=== PATIENT | male | born 1965 | race Caucasian/White ===

== ENCOUNTER 2016-09-15 11:50 | Day surgery (SDC) | payer BC, OTHER ==
[~2016-09-15] VITALS: Ht 188 cm; Wt 91.8 kg
[~2016-09-15 11:50] MED LIST: ASCO500T20 PO; ASP325TEC PO; ASP81TEC PO; CARV25TA PO; CARV6.25; CITA40TA19 PO; CLPD75T PO; CRESTOR; CRESTOR40 MG PO; LSNP20T PO; OMG1KC PO; OXYC-12 PO; PRILOSEC; PRV20T
[2016-09-15] MEDS ORDERED: ASPIRIN 81 MG CHEW (CHILDREN'S ASA) PO ONE (12:00)
--- NOTE | 2016-09-15 12:01 | ED Chest Pain ---
General Stated Complaint: CHEST PAIN Source: patient Exam Limitations: no limitations History of Present Illness Time seen by provider: 11:53 Initial Comments Here with report of increasing and stuttering chest pain that is anterior and nonradiating. Appears with activity and resolved after nitroglycerin. He's had multiple episodes over the last 2 days. Does have significant cardiac history and has had 3 stents placed. He states this is a very familiar feeling and is typically what happens with prior to requiring stent. Denies nausea or vomiting. Denies breathing problems. 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 NTG SL SALES PRODUCT SPECIALIST: Yes Associated Symptoms: No abdominal pain, No back pain, No nausea/vomiting, No shortness of breath Allergies and Home Medications Allergies Coded Allergies: NKANo Known Allergies (Verified Allergy, Unknown, 06/01/07) Home Medications Ascorbic Acid 500 Mg Tablet 500 MG PO DAILY (Reported) Aspirin 325 Mg Tabec #1 325 MG PO DAILY TAKE X 1 WEEK, THEN RESUME 81 MG DAILY Prescribed by: JOHNNY JOE on 11/27/13 1444 Aspirin 81 Mg Tabec #1 81 MG PO DAILY TAKE 325 MG X 1 WEEK, THEN RESUME 81 MG DAILY Prescribed by: JOHNNY JOE on 11/27/13 1446 Carvedilol 25 Mg Tablet 25 MG PO BID (Reported) Citalopram Hydrobromide 40 Mg Tablet 40 MG PO DAILY (Reported) Clopidogrel 75 Mg Tablet 75 MG PO DAILY (Reported) Lisinopril 20 Mg Tablet 20 MG PO DAILY (Reported) [place] 3 Polyunsat Fatty Acids 1,000 Mg Cap #1 3,000 MG PO DAILY Prescribed by: JOHNNY JOE on 11/27/13 1444 Rosuvastatin Calcium 40 Mg Tablet 40 MG PO DAILY (Reported) Review of Systems Constitutional: see HPINo chills, No fever EENTM: No Symptoms Reported Respiratory: No Symptoms Reported Cardiovascular: See HPI Chest PainDenies Edema, Denies Irregular Heart Rate, Denies Lightheadedness Gastrointestinal: No Symptoms ReportedDenies Nausea, Denies Vomiting Genitourinary: No Symptoms Reported Musculoskeletal: no symptoms reported Skin: no symptoms reported All Other Systems Reviewed Negative Unless Noted: Yes Past Rtdisob-Lxfdpk-Cwgtid Hx Patient Social History Alcohol Use: Denies Use Recreational Drug Use: No Smoking Status: Never a Smoker Surgeries HX Surgeries: Yes (HERNIA REP) Surgeries: Abdominal, Coronary Stent Respiratory Hx Respiratory Disorders: Yes Respiratory Disorders: Asthma Cardiovascular Hx Cardiac Disorders: Yes (x3 HEART STENTs) Cardiac Disorders: Coronary Artery Disease, Hypertension Neurological Hx Neurological Disorders: No Reproductive System Hx Reproductive Disorders: No Genitourinary Hx Genitourinary Disorders: Yes Genitourinary Disorders: Kidney Stones Gastrointestinal Hx Gastrointestinal Disorders: Yes Gastrointestinal Disorders: Abdominal Hernia Musculoskeletal Hx Musculoskeletal Disorders: Yes (RIGHT ROTATOR CUFF) Endocrine Hx Endocrine Disorders: No HEENT HX ENT Disorders: No Cancer Hx Cancer: No Psychosocial Hx Psychiatric Problems: Yes Behavioral Health Disorders: Depression Integumentary HX Skin/Integumentary Disorder: No Blood Transfusions Hx Blood Disorders: No Reviewed Nursing Assessment Reviewed/Agree w Nursing PMH: Yes Family Medical History Family Medial History: Alcoholism 03 FATHER Cancer 03 FATHER (lung ) Family history: Cardiovascular disease 03 FATHER (triple bypass) 03 MOTHER (multiple stents) Family history: Diabetes mellitus 03 MOTHER History of - disorder 03 MOTHER (macular degeneration) Physical Exam Vital Signs Vital Sign - Last 12Hours 09/15/16 11:52 Temp 98.4 Pulse 69 Resp 18 B/P 131/98 Pulse Ox 96 O2 Delivery Nasal Cannula O2 Flow Rate 2 Capillary Refill : General Appearance: No Apparent Distress WD/WN HEENT: PERRL/EOMI Pharynx Normal Neck: Non Tender Supple Respiratory: Lungs Clear Normal Breath Sounds Cardiovascular: Regular Rate, Rhythm No Murmur Gastrointestinal: Non Tender Soft Extremity: Non Tender No Calf Tenderness Neurologic/Psychiatric: Alert Oriented x3 Skin: Normal Color Warm/Dry Progress/Results/Core Measures Results/Orders Lab Results Laboratory Tests Test 09/15/16 12:01 Range/Units Activated Partial Thromboplast Time 25 24-35 SEC Alanine Aminotransferase (ALT/SGPT) 16 0-55 U/L Albumin 4.7 H 3.2-4.5 G/DL Alkaline Phosphatase 80 40-136 U/L Amylase Level 106 25-125 U/L Anion Gap 9 5-14 MMOL/L Aspartate Amino Transf (AST/SGOT) 17 5-34 U/L BUN/Creatinine Ratio 15 Basophils # (Auto) 0.1 0.0-0.1 10^3/uL Basophils (%) (Auto) 1 0-10 % Blood Urea Nitrogen 17 7-18 MG/DL Calcium Level 9.1 8.5-10.1 MG/DL Carbon Dioxide Level 25 21-32 MMOL/L Chloride Level 103 98-107 MMOL/L Creatinine 1.10 0.60-1.30 MG/DL D-Dimer 0.27 0.00-0.49 UG/ML Eosinophils # (Auto) 0.1 0.0-0.3 10^3/uL Eosinophils (%) (Auto) 2 0-10 % Estimat Glomerular Filtration Rate > 60 Glucose Level 106 H 70-105 MG/DL Hematocrit 46 40-54 % Hemoglobin 16.4 13.3-17.7 G/DL INR Comment 1.0 0.8-1.4 Lipase 214 H 8-78 U/L Lymphocytes # (Auto) 2.2 1.0-4.0 X 10^3 Lymphocytes (%) (Auto) 31 12-44 % Magnesium Level 2.1 1.8-2.4 MG/DL Mean Corpuscular Hemoglobin 33 25-34 PG Mean Corpuscular Hemoglobin Concent 36 32-36 G/DL Mean Corpuscular Volume 92 80-99 FL Mean Platelet Volume 9.2 7.4-10.4 FL Monocytes # (Auto) 0.9 0.0-1.0 X 10^3 Monocytes (%) (Auto) 12 0-12 % Myoglobin 226.2 H 10.0-92.0 NG/ML Neutrophils # (Auto) 4.0 1.8-7.8 X 10^3 Neutrophils (%) (Auto) 55 42-75 % Platelet Count 238 130-400 10^3/uL Potassium Level 4.2 3.6-5.0 MMOL/L Prothrombin Time 12.8 12.2-14.7 SEC Red Blood Count 4.99 4.35-5.85 10^6/uL Red Cell Distribution Width 12.0 10.0-14.5 % Sodium Level 137 135-145 MMOL/L Total Bilirubin 0.7 0.1-1.0 MG/DL Total Protein 7.1 6.4-8.2 G/DL Troponin I < 0.30 <0.30 NG/ML White Blood Count 7.3 4.3-11.0 10^3/uL My Orders Orders-JAIMIE WILSON MD Cbc With Automated Diff (09/15/16 11:59) Magnesium (09/15/16 11:59) Chest 1 View, Ap/Pa Only (09/15/16 11:59) Ekg Tracing (09/15/16 11:59) Cardiac Profile 1 (09/15/16 11:59) Comprehensive Metabolic Panel (09/15/16 11:59) Myoglobin Serum (09/15/16 11:59) Protime With Inr (09/15/16 11:59) Partial Thromboplastin Time (09/15/16 11:59) O2 (09/15/16 11:59) Monitor-Rhythm Ecg Trace Only (09/15/16 11:59) Lipid Panel (09/16/16 06:00) Aspirin Chewable Tablet (Baby Aspirin Ch (09/15/16 12:00) Saline Lock/Iv-Start (09/15/16 11:59) Lipase (09/15/16 11:59) Amylase (09/15/16 11:59) Fibrin Degradation Products (09/15/16 11:59) Medications Given in ED Current Medications Medications Dose Ordered Sig/Jorge Route Start Time Stop Time Status Last Admin Dose Admin Aspirin 324 mg ONCE ONCE PO 09/15/16 12:00 09/15/16 12:01 DC 09/15/16 12:14 324 MG Vital Signs/I&O Vital Sign - Last 12Hours 09/15/16 09/15/16 09/15/16 11:52 11:52 12:04 Temp 98.4 Pulse 69 Resp 18 B/P 131/98 Pulse Ox 96 96 O2 Delivery Nasal Cannula Room Air Room Air O2 Flow Rate 2 Progress Note : Progress Note Seen and evaluated. IV, labs, EKG and chest x-ray ordered. Patient pain free so no nitroglycerin. He has had aspirin already. Monitor patient. 1300: Labs , EKG and chest x-ray reviewed. Myoglobin slightly elevated as well as lipase slightly elevated. Admit for unstable angina due to stuttering and increasing symptoms. Case discussed with Dr. Bullock and she agrees to admission, inpatient status. Consult Dr. Jeny carl and case discussed with him. He agrees. Chest pain protocol initiated. Discussed with patient who agrees with plan. ECG Initial ECG Impression Date: Sep 15, 2016 Initial ECG Impression Time: 11:57 Initial ECG Rate: 61 Initial ECG Rhythm: Normal Sinus Comment Sinus rhythm with artifact. No evidence of ST elevation MA. Normal leftward axis. Similar to previous of 11/27/13. Interpreted by me. Diagnostic Imaging Diagonstic Imaging: Xray Plain Films/CT/US/NM/MRI: chest Comments VIA [facility], [facility]. [place], [place] NAME: [facility] REC#: [id number] PT STATUS: REG ER : 1965 PHYSICIAN: JAIMIE WILSON MD ADMIT DATE: 09/15/16/ER Draft Date of Exam:09/15/16 CHEST 1 VIEW, AP/PA ONLY CLINICAL INDICATION: Patient with chest pain skull base. EXAM: Portable chest x-ray upright view. COMPARISONS: Chest x-ray dated 11/26/2013. FINDINGS: Lungs/pleura: There is minimal atelectasis or scarring in the lateral left lung base. Likely nipple shadow overlying the lateral right lung base just above the level of the diaphragm. Lungs are clear. There is no pneumothorax. There is no pleural effusion. Mediastinum: Unremarkable. Pulmonary vasculature: Unremarkable. Heart: Unremarkable. Bones/extrathoracic soft tissue: Unremarkable. IMPRESSION: There is minimal left lung base atelectasis or scarring. Otherwise, there is no radiographic evidence of acute cardiopulmonary process. Dictated on workstation # [id number] Dict: 09/15/16 1255 Trans: 09/15/16 1303 [facility] [id number] Interpreted by: SAHLEY VEGAS MD Electronically signed by: Departure Communication Time/Spoke to Admitting Phy: 12:57 Time/Spoke to Consulting Physi: 13:01 Impression Impression: Primary Impression: Unstable angina Disposition: ADMITTED INPATIENT Condition: Stable Decision to Admit Reason: Admit from ER (General) Decision to Admit/Date: Sep 15, 2016 Time/Decision to Admit Time: 12:57 Departure-Patient Inst. Referrals: NO,LOCAL PHYSICIAN (PCP/Family) Primary Care Physician JAIMIE WILSON MD Sep 15, 2016 12:01
[2016-09-15 12:10] LABS: BASOPHILS # (AUTO) 0.1 10^3/uL (0.0-0.1); BASOPHILS % (AUTO) 1 % (0-10); EOSINOPHILS # (AUTO) 0.1 10^3/uL (0.0-0.3); EOSINOPHILS % (AUTO) 2 % (0-10); LYMPHOCYTES # (AUTO) 2.2 X 10^3 (1.0-4.0); LYMPHOCYTES % (AUTO) 31 % (12-44); MEAN CORPUSCULAR HEMOGLOBIN 33 PG (25-34); MEAN CORPUSCULAR HGB CONC 36 G/DL (32-36); MEAN CORPUSCULAR VOLUME 92 FL (80-99); MEAN PLATELET VOLUME 9.2 FL (7.4-10.4); MONOCYTES # (AUTO) 0.9 X 10^3 (0.0-1.0); MONOCYTES % (AUTO) 12 % (0-12); NEUTROPHILS % (AUTO) 55 % (42-75); PLATELET COUNT 238 10^3/uL (130-400); RED BLOOD COUNT 4.99 10^6/uL (4.35-5.85); WHITE BLOOD COUNT 7.3 10^3/uL (4.3-11.0)
[2016-09-15 12:20] LABS: PROTHROMBIN TIME PATIENT 12.8 SEC (12.2-14.7)
[2016-09-15 12:28] LABS: ALANINE AMINOTRANSFERASE 16 U/L (0-55); ALBUMIN 4.7 G/DL (3.2-4.5); AMYLASE 106 U/L (25-125); ANION GAP 9 MMOL/L (5-14); ASPARTATE AMINO TRANSFERASE 17 U/L (5-34); BILIRUBIN,TOTAL 0.7 MG/DL (0.1-1.0); BLOOD UREA NITROGEN 17 MG/DL (7-18); BUN/CREATININE RATIO 15; CALCIUM 9.1 MG/DL (8.5-10.1); CARBON DIOXIDE 25 MMOL/L (21-32); CHLORIDE 103 MMOL/L (98-107); GFR ESTIMATED > 60; GLUCOSE 106 MG/DL (70-105); LIPASE 214 U/L (8-78); MAGNESIUM 2.1 MG/DL (1.8-2.4); POTASSIUM 4.2 MMOL/L (3.6-5.0); SODIUM 137 MMOL/L (135-145); TOTAL PROTEIN 7.1 G/DL (6.4-8.2)
[2016-09-15 12:35] LABS: MYOGLOBIN SERUM 226.2 NG/ML (10.0-92.0)
--- NOTE | 2016-09-15 13:03 | Diagnostic Imaging Report ---
CLINICAL INDICATION: Patient with chest pain skull base. EXAM: Portable chest x-ray upright view. COMPARISONS: Chest x-ray dated 11/26/2013. FINDINGS: Lungs/pleura: There is minimal atelectasis or scarring in the lateral left lung base. Likely nipple shadow overlying the lateral right lung base just above the level of the diaphragm. Lungs are clear. There is no pneumothorax. There is no pleural effusion. Mediastinum: Unremarkable. Pulmonary vasculature: Unremarkable. Heart: Unremarkable. Bones/extrathoracic soft tissue: Unremarkable. IMPRESSION: There is minimal left lung base atelectasis or scarring. Otherwise, there is no radiographic evidence of acute cardiopulmonary process. Dictated by: Dictated on workstation # [id number]
[2016-09-15] MEDS ORDERED: NITR0.4T SL (13:42)
[2016-09-15] MEDS ORDERED: AMLO5TAB2 PO (13:42)
[2016-09-15] MEDS ORDERED: ASPI-983 PO (13:42)
[2016-09-15] MEDS ORDERED: LISI-552 PO (13:42)
[2016-09-15] MEDS ORDERED: ROSU40TA20 PO (13:42)
[2016-09-15] MEDS ORDERED: SULF-222 PO (13:42)
[2016-09-15] MEDS ORDERED: MELA1TAB15 PO (13:42)
[2016-09-15] MEDS ORDERED: MUPI22OI2 TOP (13:49)
[2016-09-15] MEDS ORDERED: NS IV 1000 ML 1,000 ML ONE (14:02)
--- NOTE | 2016-09-15 14:21 | Consultation-Cardiology ---
HPI-Cardiology Cardiology Consultation Date of Consultation 09/15/16 Date of Admission Indication: chest pain HPI 51-year-old gentleman with history of coronary artery disease, multiple interventions in the past, borderline lesion in the circumflex artery by cardiac catheterization 2013, had an abnormal stress test in August 2015. Was doing well until yesterday when he started having recurrent chest pain described as dull achiness in the upper epigastric lower retrosternal area not radiating associated with some shortness of breath and feeling fluttering sensation in the chest. Took nitroglycerin with improvement, had another episode yesterday at noon and in the evening then this morning, came into the emergency room, currently laying down in bed, denied any active pain. EKG did not show any acute changes Home Medications & Allergies Allergies: Coded Allergies: NKANo Known Allergies (Verified Allergy, Unknown, 06/01/07) Home Medication List Reviewed: Yes LSE-Radrjk-Qybikf Hx Patient Social History Marital Status: Alcohol Use: Denies Use Recreational Drug Use: No Smoking Status: Never a Smoker Recent Foreign Travel: No Recent Infectious Disease Expo: No Recent Hopitalizations: No Physical Abuse Screen: No Sexual Abuse: No Immunizations Up To Date Tetanus Booster (TDap): Unknown Past Medical History past medical history as discussed below Family Medical History Family History: 03 FATHER Alcoholism Cancer (lung ) Family history: Cardiovascular disease (triple bypass) 03 MOTHER Family history: Cardiovascular disease (multiple stents) Family history: Diabetes mellitus History of - disorder (macular degeneration) Constitutional: no symptoms reported see HPI EENTM: no symptoms reported see HPI Respiratory: see HPINo cough, dyspnea on exertionNo hemoptysis, No orthopnea , No phlegm, short of breathNo stridor, No wheezing, No other Cardiovascular: see HPI chest painNo edema, No Hx of Intervention, No palpitations, No syncope, No vascular heart diseas, No other Gastrointestinal: no symptoms reported see HPI Genitourinary: no symptoms reported see HPI Musculoskeletal: no symptoms reported see HPI Skin: no symptoms reported see HPI Psychiatric/Neurological: No Symptoms Reported See HPI Reviewed Test Results Reviewed Test Results Lab Laboratory Tests Test 09/15/16 12:01 Range/Units Activated Partial Thromboplast Time 25 24-35 SEC Alanine Aminotransferase (ALT/SGPT) 16 0-55 U/L Albumin 4.7 H 3.2-4.5 G/DL Alkaline Phosphatase 80 40-136 U/L Amylase Level 106 25-125 U/L Anion Gap 9 5-14 MMOL/L Aspartate Amino Transf (AST/SGOT) 17 5-34 U/L BUN/Creatinine Ratio 15 Basophils # (Auto) 0.1 0.0-0.1 10^3/uL Basophils (%) (Auto) 1 0-10 % Blood Urea Nitrogen 17 7-18 MG/DL Calcium Level 9.1 8.5-10.1 MG/DL Carbon Dioxide Level 25 21-32 MMOL/L Chloride Level 103 98-107 MMOL/L Creatinine 1.10 0.60-1.30 MG/DL D-Dimer 0.27 0.00-0.49 UG/ML Eosinophils # (Auto) 0.1 0.0-0.3 10^3/uL Eosinophils (%) (Auto) 2 0-10 % Estimat Glomerular Filtration Rate > 60 Glucose Level 106 H 70-105 MG/DL Hematocrit 46 40-54 % Hemoglobin 16.4 13.3-17.7 G/DL INR Comment 1.0 0.8-1.4 Lipase 214 H 8-78 U/L Lymphocytes # (Auto) 2.2 1.0-4.0 X 10^3 Lymphocytes (%) (Auto) 31 12-44 % Magnesium Level 2.1 1.8-2.4 MG/DL Mean Corpuscular Hemoglobin 33 25-34 PG Mean Corpuscular Hemoglobin Concent 36 32-36 G/DL Mean Corpuscular Volume 92 80-99 FL Mean Platelet Volume 9.2 7.4-10.4 FL Monocytes # (Auto) 0.9 0.0-1.0 X 10^3 Monocytes (%) (Auto) 12 0-12 % Myoglobin 226.2 H 10.0-92.0 NG/ML Neutrophils # (Auto) 4.0 1.8-7.8 X 10^3 Neutrophils (%) (Auto) 55 42-75 % Platelet Count 238 130-400 10^3/uL Potassium Level 4.2 3.6-5.0 MMOL/L Prothrombin Time 12.8 12.2-14.7 SEC Red Blood Count 4.99 4.35-5.85 10^6/uL Red Cell Distribution Width 12.0 10.0-14.5 % Sodium Level 137 135-145 MMOL/L Total Bilirubin 0.7 0.1-1.0 MG/DL Total Protein 7.1 6.4-8.2 G/DL Troponin I < 0.30 <0.30 NG/ML White Blood Count 7.3 4.3-11.0 10^3/uL Physical Exam Vital Signs Vital Sign - Last 12Hours 09/15/16 11:52 Temp 98.4 Pulse 69 Resp 18 B/P 131/98 Pulse Ox 96 O2 Delivery Nasal Cannula O2 Flow Rate 2 Capillary Refill : Less Than 3 Seconds General Appearance: No Apparent Distress WD/WN Eyes: Bilateral Eye EOMI, Bilateral Eye Normal Inspection, Bilateral Eye PERRL HEENT: PERRL/EOMI TMs Normal Normal ENT Inspection Pharynx Normal Neck: Full Range of Motion Normal Inspection Non Tender Supple Carotid Bruit Respiratory: Chest Non Tender Lungs Clear Normal Breath Sounds No Accessory Muscle Use No Respiratory Distress Cardiovascular: Regular Rate, Rhythm No Edema No Gallop No JVD No Murmur Normal Peripheral Pulses Gastrointestinal: Normal Bowel Sounds No Organomegaly No Pulsatile Mass Non Tender Soft Back: Normal Inspection No CVA Tenderness No Vertebral Tenderness Extremity: Normal Capillary Refill Normal Inspection Normal Range of Motion Non Tender No Calf Tenderness No Pedal Edema Neurologic/Psychiatric: Alert Oriented x3 No Motor/Sensory Deficits Normal Mood/Affect Skin: Normal Color Warm/Dry Lymphatic: No Adenopathy A/P-Cardiology Admission Diagnosis Chest pain Coronary artery disease Hypertension Hyperlipidemia Assessment/Plan Chest pain resembling angina, acute onset. Responsive to nitroglycerin, no acute EKG changes, cardiac enzymes are normal. I'll continue monitoring, patient will be admitted with chest pain protocol, possible cardiac catheterization. Monitor EKG and cardiac enzymes. Coronary artery disease, history of PTCA and stent done in 2005 using 4.020 mm Liberte stent to the right coronary artery. Was hospitalized in November 2013 with unstable angina. Underwent cardiac catheterization which showed 80 percent midright coronary artery stenosis. Underwent successful deployment of 2 overlapping stents 4.012 mm Promus element and 4.08 mm Promus element in the midright coronary artery overlapping with the old stent with excellent results, no residual stenosis. The proximal portion of the right coronary artery has 40 percent stenosis. The circumflex artery has 50-60 percent proximal stenosis, FFR evaluation showed insignificant stenosis. 95 percent stenosis at the first diagonal artery that is fairly small artery not amendable to intervention, stress test was done in August 2015 showing excellent exercise tolerance, 13 minutes 30 seconds on Oscar protocol, hypertensive response, diaphragmatic attenuation with subtle decrease uptake at the inferior wall, echocardiogram showed moderate LVH with ejection fraction 60 percent. reporting worsening chest pain recently. Planning to proceed with cardiac catheterization. Hypertension, I will restart home medication and monitor blood pressure Hyperlipidemia, monitor lipids. Restart Crestor. History of noncompliance with medications, Patient expressed that he has been compliant with his medications. Strong family history of heart disease Mild depression, currently under control. Continue to monitor Clinical Quality Measures AMI/AHF: ASA po Prior to arrival: Yes JORDAN NAGY MD Sep 15, 2016 14:20
[2016-09-15 14:30] VITALS: BP 126/72
[2016-09-15] MEDS ORDERED: morphine INJ 4 MG/ML 1 ML (VIAL/SYRINGE) IV PRN (14:45)
[2016-09-15] MEDS ORDERED: NITROGLYCERIN SUBLINGUAL 0.4 MG TAB (NITROSTAT) SL PRN (14:45)
[2016-09-15] MEDS ORDERED: CATHETER FLUSH 10 ML SYR IV PRN (14:45)
[2016-09-15] MEDS ORDERED: FLU TRIvalent (5 YOA+) 2016-17 (AFLURIA) 0.5 ML IM ONE (15:30)
[2016-09-15] MEDS: NS IV 1000 ML 1,000 ML IV SCH (15:49)
[2016-09-15] MEDS ORDERED: NON-FORMULARY MEDICATION 1 EA EA (Melatonin/Pyridoxine (Melatonin 5 mg Tablet) 5 MG) PO PRN (16:15)
--- NOTE | 2016-09-15 16:53 | History & Physical-Hospitalist ---
HPI History of Present Illness: HPI/Chief Complaint this is a 51-year-old white male with a history of coronary artery disease multiple stents and interventions. Patient presents with a three-day history of increased chest pain relieved with nitroglycerin. This pain has occurred at rest and has been associated with diaphoresis and shortness of breath. Patient has currently been pain-free since admission. Dr. Moreno seen the patient in cardiac catheter is planned for the morning. Source: patient Exam Limitations: no limitations Date Seen 09/15/16 Attending Physician Eunice Santa MD PCP No,Local Physician Referring Physician Date of Admission Sep 15, 2016 at 13:21 Home Medications & Allergies Home Medications Reviewed patient Home Medication Reconciliation Form Allergies Coded Allergies: NKANo Known Allergies (Verified Allergy, Unknown, 06/01/07) Past Cziolgf-Qkpvzh-Taavgn Hx Patient Social History Marrital Status: Employed/Student: employed Alcohol Use: Past History Recreational Drug Use: Yes Drug of Choice: marijuana Smoking Status: Former Smoker Type Used: Cigarettes Physical Abuse Screen: No Sexual Abuse: No Recent Foreign Travel: No Contact w/other who traveled: No Recent Hopitalizations: No Recent Infectious Disease Expo: No Immunizations Up To Date Tetanus Booster (TDap): Unknown Seasonal Allergies Seasonal Allergies: No Surgeries HX Surgeries: Yes (HERNIA REP, macrodiscetomy, cardiac stents x 3) Surgeries: Abdominal, Coronary Stent, Orthopedic Respiratory Hx Respiratory Disorders: Yes (asthma) Cardiovascular Hx Cardiovascular Disorders: Yes (x3 HEART STENTs) Cardiac Disorders: Coronary Artery Disease, Hypertension Neurological Hx Neurological Disorders: No Reproductive System Hx Reproductive Disorders: No Genitourinary Hx Genitourinary Disorders: Yes Genitourinary Disorders: Kidney Stones Gastrointestinal Hx Gastrointestinal Disorders: Yes Gastrointestinal Disorders: Abdominal Hernia Musculoskeletal Hx Musculoskeletal Disorders: Yes (RIGHT ROTATOR CUFF) Endocrine Hx Endocrine Disorders: No HEENT HX ENT Disorders: No Cancer Hx Cancer: No Psychosocial Hx Psychiatric Problems: Yes Behavioral Health Disorders: Depression Integumentary HX Skin/Integumentary Disorder: No Blood Transfusions Hx Blood Disorders: No Reviewed Nursing Assessment Reviewed/Agree w Nursing PMH: Yes Family Medical History Family Hx: Alcoholism 03 FATHER Cancer 03 FATHER (lung ) Family history: Cardiovascular disease 03 FATHER (triple bypass) 03 MOTHER (multiple stents) Family history: Diabetes mellitus 03 MOTHER History of - disorder 03 MOTHER (macular degeneration) Review of Systems Constitutional: no symptoms reported EENTM: no symptoms reported Respiratory: no symptoms reported Cardiovascular: see HPI chest pain Gastrointestinal: no symptoms reported Genitourinary: no symptoms reported Musculoskeletal: no symptoms reported Skin: no symptoms reported Psychiatric/Neurological: No Symptoms Reported Physical Exam Physical Exam Vital Signs Vital Sign - Last 12Hours 09/15/16 11:52 Temp 98.4 Pulse 69 Resp 18 B/P 131/98 Pulse Ox 96 O2 Delivery Nasal Cannula O2 Flow Rate 2 Capillary Refill : Less Than 3 Seconds General Appearance: No Apparent Distress WD/WN HEENT: Normal ENT Inspection Neck: Supple Respiratory: Lungs Clear Normal Breath Sounds No Accessory Muscle Use No Respiratory Distress Cardiovascular: Regular Rate, Rhythm No Gallop No Murmur Gastrointestinal: Non Tender Soft Back: No CVA Tenderness Extremity: Non Tender No Calf Tenderness Neurologic/Psychiatric: Alert Oriented x3 No Motor/Sensory Deficits Normal Mood/Affect Skin: Normal Color Warm/Dry Lymphatic: No Adenopathy Results Results/Procedures Lab Laboratory Tests 09/15/16 12:01 Assessment/Plan Admission Diagnosis 1. unstable angina 2. Hypertension 3. Elevated lipase 4. coronary artery disease with a history of stents and interventions in the past 5. Family history of heart disease Plan to continue his home medications with a cardiac catheter in the morning Clinical Quality Measures AMI/AHF: ASA po Prior to arrival: Yes DVT/VTE Risk/Contraindication: Risk Factor Score Per Nursin RFS Level Per Nursing on Admit: 1=Low/No VTE PPX EUNICE SANTA MD Sep 15, 2016 16:53
[2016-09-15] MEDS: TRIM/SULFAMETH 160/800 (SEPTRA DS) TAB PO SCH (17:00)
[2016-09-15] MEDS: ENOXAPARIN 100 MG/1 ML (LOVENOX) SYR SC SCH (17:01)
[2016-09-15] MEDS: MELATONIN 3 MG TABLET PO PRN (19:47)
[2016-09-15] MEDS: CARVEDILOL 12.5 MG (COREG) TABLET PO SCH (19:47)
[2016-09-15 19:48] VITALS: BP 132/81
[2016-09-15] MEDS ORDERED: NON-FORMULARY MEDICATION 1 EA EA (Carvedilol 25 MG) PO SCH (21:00)
[2016-09-15 23:41] VITALS: BP 142/72
[2016-09-16] VITALS (10 sets, daily range): BP systolic 108–136; BP diastolic 67–90
[2016-09-16 03:32] LABS: BASOPHILS # (AUTO) 0.1 10^3/uL (0.0-0.1); BASOPHILS % (AUTO) 1 % (0-10); EOSINOPHILS # (AUTO) 0.1 10^3/uL (0.0-0.3); EOSINOPHILS % (AUTO) 2 % (0-10); LYMPHOCYTES # (AUTO) 2.9 X 10^3 (1.0-4.0); LYMPHOCYTES % (AUTO) 50 % (12-44); MEAN CORPUSCULAR HEMOGLOBIN 32 PG (25-34); MEAN CORPUSCULAR HGB CONC 34 G/DL (32-36); MEAN CORPUSCULAR VOLUME 93 FL (80-99); MEAN PLATELET VOLUME 9.8 FL (7.4-10.4); MONOCYTES # (AUTO) 0.7 X 10^3 (0.0-1.0); MONOCYTES % (AUTO) 12 % (0-12); NEUTROPHILS % (AUTO) 35 % (42-75); PLATELET COUNT 204 10^3/uL (130-400); RED BLOOD COUNT 4.93 10^6/uL (4.35-5.85); RED CELL DISTRIBUTION WIDTH 12.1 % (10.0-14.5); WHITE BLOOD COUNT 5.8 10^3/uL (4.3-11.0)
[2016-09-16 03:50] LABS: ALANINE AMINOTRANSFERASE 18 U/L (0-55); ALBUMIN 4.3 G/DL (3.2-4.5); ANION GAP 12 MMOL/L (5-14); ASPARTATE AMINO TRANSFERASE 21 U/L (5-34); BILIRUBIN,TOTAL 0.6 MG/DL (0.1-1.0); BLOOD UREA NITROGEN 15 MG/DL (7-18); BUN/CREATININE RATIO 16; CALCIUM 9.1 MG/DL (8.5-10.1); CARBON DIOXIDE 23 MMOL/L (21-32); CHLORIDE 104 MMOL/L (98-107); CHOLESTEROL 159 MG/DL (< 200); CREATININE SERUM 0.94 MG/DL (0.60-1.30); DIRECT LDL 111 MG/DL (1-129); GFR ESTIMATED > 60; GLUCOSE 97 MG/DL (70-105); LIPASE 54 U/L (8-78); POTASSIUM 4.3 MMOL/L (3.6-5.0); SODIUM 139 MMOL/L (135-145); TOTAL PROTEIN 6.5 G/DL (6.4-8.2); TRIGLYCERIDES 155 MG/DL (<150); VLDL CHOLESTEROL 31 MG/DL (5-40)
[2016-09-16] MEDS: NS IV 1000 ML 1,000 ML IV SCH ×3 (03:56→19:57)
[2016-09-16] MEDS: ENOXAPARIN 100 MG/1 ML (LOVENOX) SYR SC SCH (04:30)
[2016-09-16] MEDS: TRIM/SULFAMETH 160/800 (SEPTRA DS) TAB PO SCH ×2 (07:00→16:22)
[2016-09-16] MEDS: CARVEDILOL 12.5 MG (COREG) TABLET PO SCH ×2 (08:10→20:12)
[2016-09-16] MEDS: lisINopril 20 MG (ZESTRIL) TAB PO SCH (08:11)
[2016-09-16] MEDS: amLODIPine 5 MG (NORVASC) TAB PO SCH (08:11)
[2016-09-16] MEDS ORDERED: HEParin (CATH LAB) 2,000 ML IV ONE (08:31)
[2016-09-16] MEDS ORDERED: NS IV 1000 ML 0 ML ONE (08:31)
[2016-09-16] MEDS ORDERED: LIDOCAINE 1% INJ 20 ML (XYLOCAINE) VIAL ONE (08:31)
[2016-09-16] MEDS ORDERED: fentaNYL INJECTION 100 MCG/2 ML AMP ONE (08:33)
[2016-09-16] MEDS ORDERED: MIDAZOLAM 5 MG/5 ML (VERSED) VIAL ONE (08:33)
--- NOTE | 2016-09-16 08:47 | Cardiology Progress Note ---
Subjective Subjective/Events-last exam patient had another 2 episodes of chest pain 1 at 3 a.m. and one early this morning, the Moni nature in the retrosternal area associated with some shortness of breath. Similar to his chest pain that brought him to the hospital , currently chest pain-free Review of Systems General: No Chills, No Night Sweats, No Fatigue, No Malaise, No Appetite, No Other HEENT: No Head Aches, No Visual Changes, No Eye Pain, No Ear Pain, No Dysphasia , No Sinus Congestion, No Post Nasal Drip, No Sore Throat, No Other Pulmonary: DyspneaNo Cough, No Pleuritic Chest Pain, No Other Cardiovascular: : Chest PainNo: Edema, Lt Headedness, Orthopnea, Other, Palpitations, Paroxysmal Noc. Dyspnea Objective-Cardiology Exam Last Set of Vital Signs Vital Signs 09/15/16 09/16/16 14:10 08:05 Temp 97.4 Pulse 67 Resp 16 B/P 123/87 Pulse Ox 96 O2 Delivery Room Air O2 Flow Rate 2 Capillary Refill : Less Than 3 Seconds I&O Bad tableGeneral: Alert, Oriented X3, Cooperative HEENT: Atraumatic, PERRLA Neck: Supple, No JVD, No Thyromegaly Lungs: Clear to Auscultation, Normal Air Movement Heart: Regular Rate, Normal S1, Normal S2, No Murmurs Abdomen: Normal Bowel Sounds, Soft, No Tenderness, No Hepatosplenomegaly, No Masses Extremities: No Clubbing, No Cyanosis, No Edema, Normal Pulses, No Tenderness/ Swelling Skin: No Rashes, No Breakdown, No Significant Lesion Neuro: Normal Gait, Normal Speech, Strength at 5/5 X4 Ext, Normal Tone, Sensation Intact Psych/Mental Status: Mental Status NL, Mood NL Results Lab Laboratory Tests 09/15/16 12:01 09/16/16 02:40 A/P-Cardiology Admission Diagnosis Chest pain Coronary artery disease Hypertension Hyperlipidemia Assessment/Plan Chest pain resembling angina, acute onset. Responsive to nitroglycerin, still having recurrent pain, I am planning to proceed with cardiac catheterization today. Coronary artery disease, history of PTCA and stent done in 2005 using 4.020 mm Liberte stent to the right coronary artery. Was hospitalized in November 2013 with unstable angina. Underwent cardiac catheterization which showed 80 percent midright coronary artery stenosis. Underwent successful deployment of 2 overlapping stents 4.012 mm Promus element and 4.08 mm Promus element in the midright coronary artery overlapping with the old stent with excellent results, no residual stenosis. The proximal portion of the right coronary artery has 40 percent stenosis. The circumflex artery has 50-60 percent proximal stenosis, FFR evaluation showed insignificant stenosis. 95 percent stenosis at the first diagonal artery that is fairly small artery not amendable to intervention, stress test was done in August 2015 showing excellent exercise tolerance, 13 minutes 30 seconds on Oscar protocol, hypertensive response, diaphragmatic attenuation with subtle decrease uptake at the inferior wall, echocardiogram showed moderate LVH with ejection fraction 60 percent. reporting worsening chest pain recently. Planning to proceed with cardiac catheterization. Hypertension, monitor blood pressure Hyperlipidemia, still having elevated LDL, continue Crestor, add Zetia. History of noncompliance with medications, Patient expressed that he has been compliant with his medications. Strong family history of heart disease Mild depression, currently under control. Continue to monitor Clinical Quality Measures AMI/AHF: ASA po Prior to arrival: Yes DVT/VTE Risk/Contraindication: Risk Factor Score Per Nursin RFS Level Per Nursing on Admit: 1=Low/No VTE PPX JORDAN NAGY MD Sep 16, 2016 08:47
--- NOTE | 2016-09-16 08:49 | Cardiac Procedure Note-CS/ASA ---
Pre-Procedure Note Pre-Op Procedure Note H&P Reviewed The H&P was reviewed, patient examined and no changes noted. Date H&P Reviewed: Sep 16, 2016 Time H&P Reviewed: 08:48 Conscious Sedation Pre-Proced Time Reviewed: 08:48 ASA Class: 3 Airway Mallampati Classification: (nenana appropriate class) I. II. III, IV Lungs Heart ASA score ASA 1: a normal healthy patient ASA 2: a patient with a mild systemic disease (mid diabetes, controlled hypertension, obesity x ASA 3: a patient with a severe systemic disease that limits activity (angina , COPD, prior Myocardial infarction) ASA 4: a patient with an incapacitating disease that is a constant threat to life (CHF, renal failure) ASA 5: a moribund patient not expected to survive 24 hrs. (ruptured aneurysm) ASA 6: a declared brain patient whose organs are being harvested. For emergent operations, add the letter E after the classification Grade 3 Sedation Plan: Analgesia, Amnesia, Plan communicated to team members, Discussed options with patient/fam, Discussed risks with patient/fam Note The patient is an appropriate candidate to undergo the planned procedure, sedation, and anesthesia. The patient immediately re-assessed prior to indication. JORDAN NAGY MD Sep 16, 2016 08:49
[2016-09-16] MEDS ORDERED: ASPIRIN E.C. 81 MG (ECOTRIN) TAB PO SCH (09:00)
[2016-09-16] MEDS ORDERED: NON-FORMULARY MEDICATION 1 EA EA (Citalopram Hydrobromide (Celexa) 40 MG) PO SCH (09:00)
[2016-09-16] MEDS ORDERED: CLOPIDOGREL 75 MG (PLAVIX) TABLET PO SCH (09:00)
[2016-09-16] MEDS ORDERED: ASPIRIN E.C. 325 MG (ECOTRIN) TABLET PO SCH (09:00)
[2016-09-16] MEDS ORDERED: EPTIFIBATIDE BOLUS 20 ML IV ONE (09:30)
[2016-09-16] MEDS ORDERED: NITROGLYCERIN DRIP 25 MG/D5W 250 ML IV ONE (09:30)
[2016-09-16] MEDS ORDERED: HEParin 1000 UNIT/ML (10ML VIAL) FOR BOLUS ONE (09:30)
[2016-09-16] MEDS ORDERED: ASPIRIN 325 MG (5 GR) TABLET ONE (09:53)
[2016-09-16] MEDS ORDERED: CLOPIDOGREL 300 MG (PLAVIX) TABLET PO ONE (09:53)
[2016-09-16] MEDS ORDERED: PATIENT MAY USE OWN MEDS, ALL PO SCH (10:00)
--- NOTE | 2016-09-16 10:14 | Progress Note-Hospitalist ---
Subjective HPI/CC On Admission this is a 51-year-old white male with a history of coronary artery disease multiple stents and interventions. Patient presents with a three-day history of increased chest pain relieved with nitroglycerin. This pain has occurred at rest and has been associated with diaphoresis and shortness of breath. Patient has currently been pain-free since admission. Dr. Moreno seen the patient in cardiac catheter is planned for the morning. Date Seen 09/16/16 Subjective/Events-last exam patient has had chest discomfort off and on throughout the night. He is getting ready for heart catheter this morning. He notes his mother has had 17 stents. Not take any nitroglycerin overnight. Troponin is remained negative. Review of Systems Cardiovascular: : Chest Pain Objective Exam Vital Signs Vital Sign - Last 12Hours 09/15/16 11:52 Temp 98.4 Pulse 69 Resp 18 B/P 131/98 Pulse Ox 96 O2 Delivery Nasal Cannula O2 Flow Rate 2 Capillary Refill : Less Than 3 Seconds General Appearance: No Apparent Distress WD/WN HEENT: Normal ENT Inspection Other (or dentition) Neck: Normal Inspection Non Tender Respiratory: Normal Breath Sounds No Accessory Muscle Use No Respiratory Distress Crackles Cardiovascular: Regular Rate, Rhythm No Gallop No Murmur Gastrointestinal: Non Tender Soft Extremity: Normal Range of Motion Non Tender No Calf Tenderness Neurologic/Psychiatric: Alert Oriented x3 No Motor/Sensory Deficits Normal Mood/Affect Skin: Normal Color Warm/Dry Results/Procedures Lab Laboratory Tests 09/15/16 12:01 09/16/16 02:40 Assessment/Plan Assessment and Plan Assess & Plan/Chief Complaint 1. unstable angina-heart catheter today, discharge per Dr. Fermin 2. coronary artery disease with previous stents 3. Suboptimal LDL-and sitter more aggressive statin replacement 4.Elevated lipase of uncertain etiology- back to normal GEMMA SANTA MD Sep 16, 2016 10:14
[2016-09-16] MEDS: OMEGA 3 (FISH OIL) 1000 MG CAP PO SCH ×2 (13:14→16:22)
[2016-09-16] MEDS: MELATONIN 3 MG TABLET PO PRN (20:12)
[2016-09-16] MEDS ORDERED: ATORVASTATIN 80 MG (LIPITOR) TABLET PO SCH (21:00)
[2016-09-17 03:15] VITALS: BP 117/85
[2016-09-17 04:03] LABS: MEAN PLATELET VOLUME 9.7 FL (7.4-10.4); RED BLOOD COUNT 5.04 10^6/uL (4.35-5.85); RED CELL DISTRIBUTION WIDTH 11.9 % (10.0-14.5); WHITE BLOOD COUNT 7.9 10^3/uL (4.3-11.0)
[2016-09-17 04:11] LABS: ANION GAP 11 MMOL/L (5-14); BLOOD UREA NITROGEN 14 MG/DL (7-18); BUN/CREATININE RATIO 16; CALCIUM 9.1 MG/DL (8.5-10.1); CARBON DIOXIDE 20 MMOL/L (21-32); CHLORIDE 105 MMOL/L (98-107); CREATININE SERUM 0.89 MG/DL (0.60-1.30); GFR ESTIMATED > 60; GLUCOSE 111 MG/DL (70-105); POTASSIUM 4.2 MMOL/L (3.6-5.0); SODIUM 136 MMOL/L (135-145)
[2016-09-17] MEDS: NS IV 1000 ML 1,000 ML IV SCH (05:31)
[2016-09-17 08:30] VITALS: BP 142/100
[2016-09-17] MEDS: lisINopril 20 MG (ZESTRIL) TAB PO SCH (08:48)
[2016-09-17] MEDS: CARVEDILOL 12.5 MG (COREG) TABLET PO SCH (08:48)
[2016-09-17] MEDS: OMEGA 3 (FISH OIL) 1000 MG CAP PO SCH (08:48)
[2016-09-17] MEDS: amLODIPine 5 MG (NORVASC) TAB PO SCH (08:48)
[2016-09-17] MEDS: TRIM/SULFAMETH 160/800 (SEPTRA DS) TAB PO SCH (08:48)
[2016-09-17] MEDS ORDERED: OMG1KC PO (08:58)
--- NOTE | 2016-09-17 08:59 | Discharge Inst-Post CATH ---
Discharge Inst-CATH Post Cardiac Cath D/C Inst Follow Up/Plan Appointment with Dr Fermin's office in 2-4 weeks CARDIAC CATH DISCHARGE INSTRUCTIONS *Hold Metformin for 48 hours post heart cath. ACTIVITY * Go Home directly and rest. * Limit activity of the leg (or wrist if it was used) for 7 days including aerobics, swimming, jogging, bicycling, etc. * Restrict stair-climbing for 7 days if possible, if not, climb up with your non -cath leg, then bring together on the same step. * Avoid lifting, pushing, pulling or excessive movement of the affected extremity for 7 days. * Customary sexual activity may be resumed after 2 days-use caution not to use a position that strains or causes pain to the affected extremity. * No driving for 24 hours. * NO SMOKING. * Avoid straining for bowel movements for 7 days. * Gentle walking on level ground is allowed. * Returning to work will depend on the type of procedure and the results. Your doctor will discuss this with you. CALL YOUR DOCTOR FOR ANY OF THE FOLLOWING: *If bleeding from the puncture site occurs- Apply gentle pressure to site with clean cloth and call your doctor or EMS. * If a knot or lump forms under the skin, increases in size, or causes pain. * If bruising appears to be worsening or moving further down your leg instead of disappearing. * Temperature above 101 F. CARE OF YOUR GROIN INCISION; * Bruising or purple discoloration of the skin near the puncture site is common. * You may shower only, no bathtub bathing for 5 days. Be careful to avoid slipping as your leg may feel stiff. * If a closure device was used on your femoral artery, please see the attached guide regarding care of the device and your leg. * REMOVE the dressing from your groin the next day after your procedure in the shower. CARE OF YOUR WRIST INCISION; * Bruising or purple discoloration of the skin near the puncture site is common. * You may shower. * DO NOT submerge wrist. * Remove dressing in 24 hours. JORDAN FERMIN MD Sep 17, 2016 08:59
[2016-09-17] MEDS ORDERED: CLOPIDOGREL 75 MG (PLAVIX) TABLET PO SCH (09:00)
[2016-09-17] MEDS ORDERED: ASPIRIN E.C. 81 MG (ECOTRIN) TAB PO SCH (09:00)
--- NOTE | 2016-09-17 09:03 | Cardiology Progress Note ---
Subjective Subjective/Events-last exam patient is feeling well, groin is healing well, had some numbness in his right leg yesterday after the cardiac catheter improved at this time, feeling better. Review of Systems General: No Chills, No Night Sweats, No Fatigue, No Malaise, No Appetite, No Other HEENT: No Head Aches, No Visual Changes, No Eye Pain, No Ear Pain, No Dysphasia , No Sinus Congestion, No Post Nasal Drip, No Sore Throat, No Other Pulmonary: No Dyspnea, No Cough, No Pleuritic Chest Pain, No Other Cardiovascular: No: Chest Pain, Edema, Lt Headedness, Orthopnea, Other, Palpitations, Paroxysmal Noc. Dyspnea Gastrointestinal: No: Abdominal Pain, Constipation, Diarrhea, Hematochezia, Melena, Nausea, Other, Vomiting Objective-Cardiology Exam Last Set of Vital Signs Vital Signs 09/15/16 09/17/16 14:10 08:30 Temp 99.9 Pulse 68 Resp 18 B/P 142/100 Pulse Ox 95 O2 Delivery Room Air O2 Flow Rate 2 Capillary Refill : Less Than 3 Seconds I&O Intake and Output 09/17/16 00:00 Intake Total 650 ml Output Total 902 ml Balance -252 ml Intake Oral 650 ml Output Urine Total 902 ml # Bowel Movements 1 General: Alert, Oriented X3, Cooperative HEENT: Atraumatic, PERRLA Neck: Supple, No JVD, No Thyromegaly Lungs: Clear to Auscultation, Normal Air Movement Heart: Regular Rate, Normal S1, Normal S2, No Murmurs Abdomen: Normal Bowel Sounds, Soft, No Tenderness, No Hepatosplenomegaly, No Masses Extremities: No Clubbing, No Cyanosis, No Edema, Normal Pulses, No Tenderness/ Swelling Skin: No Rashes, No Breakdown, No Significant Lesion Neuro: Normal Gait, Normal Speech, Strength at 5/5 X4 Ext, Normal Tone, Sensation Intact Psych/Mental Status: Mental Status NL, Mood NL Results Lab Laboratory Tests 09/17/16 03:10 A/P-Cardiology Admission Diagnosis Chest pain Coronary artery disease Hypertension Hyperlipidemia Assessment/Plan Unstable angina, status post cardiac catheterization with stent, doing well. Coronary artery disease, history of PTCA and stent done in 2005 using 4.020 mm Liberte stent to the right coronary artery. Was hospitalized in November 2013 with unstable angina. Underwent cardiac catheterization which showed 80 percent midright coronary artery stenosis. Underwent successful deployment of 2 overlapping stents 4.012 mm Promus element and 4.08 mm Promus element in the midright coronary artery overlapping with the old stent with excellent results, no residual stenosis. The proximal portion of the right coronary artery has 40 percent stenosis. The circumflex artery has 50-60 percent proximal stenosis, FFR evaluation showed insignificant stenosis. 95 percent stenosis at the first diagonal artery that is fairly small artery not amendable to intervention, repeat cardiac catheterization showed patent stents in the midright coronary artery, ulcerated plaque in the proximal right coronary artery with 90 percent stenosis, underwent stent deployment using Xience stent 4.018 mm with excellent results. No residual stenosis. Still have the 50 percent lesion in the mid circumflex artery, severe stenosis of the ostial diagonal artery that is fairly small artery treated medically. Hypertension, continue current medications Hyperlipidemia, still having elevated LDL, continue current medication, and fish oil History of noncompliance with medications, Patient expressed that he has been compliant with his medications. Strong family history of heart disease Mild depression, currently under control. Continue to monitor Clinical Quality Measures AMI/AHF: ASA po Prior to arrival: Yes DVT/VTE Risk/Contraindication: Risk Factor Score Per Nursin RFS Level Per Nursing on Admit: 1=Low/No VTE PPX JORDAN NAGY MD Sep 17, 2016 09:03
--- NOTE | 2016-09-17 09:19 | Progress Note-Hospitalist ---
Subjective HPI/CC On Admission this is a 51-year-old white male with a history of coronary artery disease multiple stents and interventions. Patient presents with a three-day history of increased chest pain relieved with nitroglycerin. This pain has occurred at rest and has been associated with diaphoresis and shortness of breath. Patient has currently been pain-free since admission. Dr. Moreno seen the patient in cardiac catheter is planned for the morning. Date Seen 09/17/16 Subjective/Events-last exam patient has been pain-free overnight. Had a stent placed in a ruptured atherosclerotic plaque by Dr. Fermin yesterday. anxious to go home Objective Exam Vital Signs Vital Sign - Last 12Hours 09/15/16 11:52 Temp 98.4 Pulse 69 Resp 18 B/P 131/98 Pulse Ox 96 O2 Delivery Nasal Cannula O2 Flow Rate 2 Capillary Refill : Less Than 3 Seconds General Appearance: No Apparent Distress WD/WN HEENT: Normal ENT Inspection Neck: Normal Inspection Respiratory: Lungs Clear Normal Breath Sounds No Accessory Muscle Use Cardiovascular: Regular Rate, Rhythm No Gallop No Murmur Gastrointestinal: No Organomegaly Soft Back: Normal Inspection No CVA Tenderness Extremity: No Calf Tenderness Neurologic/Psychiatric: Alert Oriented x3 No Motor/Sensory Deficits Normal Mood/Affect Results/Procedures Lab Laboratory Tests 09/17/16 03:10 Assessment/Plan Assessment and Plan Assess & Plan/Chief Complaint 1. unstable angina-resolved that is post-stent placement, discharge per Dr. Fermin-today 2. coronary artery disease with previous stents 3. Suboptimal LDL-and sitter more aggressive statin replacement 4.Elevated lipase of uncertain etiology- back to normal GEMMA SANTA MD Sep 17, 2016 09:19
--- NOTE | 2016-09-17 22:45 | CARDIAC CATHETERIZATION ---
PROCEDURE PHYSICIAN: JORDAN NAGY DATE OF PROCEDURE: 09/16/2016 CARDIAC CATHETERIZATION REPORT: REFERRING PHYSICIAN: Dr. Eunice Bullock. BRIEF HISTORY: Mr. Fuentes is a 51-year-old gentleman with known coronary artery disease, multiple intervention in the past, admitted with unstable angina and scheduled for left heart catheterization. PROCEDURE NOTE: After explaining the procedure to the patient, all pros and cons were explained. All questions were answered. The patient signed a consent, then he was placed on the cardiac catheterization laboratory. The right groin was prepped in a sterile fashion. Local anesthesia applied to right groin. 6-Chinese sheath was placed in the right femoral artery. Combination of right and left Louann catheter were used to access the right and left coronary system. Multiple views were obtained. Pigtail catheter advanced to the left ventricular cavity. Left ventricular pressure was measured and left ventriculogram was done. Pullback LV to aorta was done. At the end of the procedure, I decided to proceed with percutaneous intervention. The patient was given heparin bolus of 5000 units, double bolus of Integrilin. No drip was made. An FR guide was advanced to the right coronary artery. BMW wire was advanced and parked distally. The patient had ulcerated plaque with 90% stenosis in the proximal right coronary artery. I did few balloon inflations in the proximal right using emerge balloon 4 x 15 mm. Then proceeded with stent deployment using Xience Alpine 4 x 18 mm drug-eluting stent, deployed under 14 atmospheres which is 4.2 mm. Angiogram showed excellent results. No complication. At the end of the procedure, sheath was removed. Mynx device deployed. Hemostasis achieved. FINDINGS: HEMODYNAMICS: LV pressure 117/15, end-diastolic pressure of 15, aortic pressure 107/70 mean of 85. No significant gradient across the aortic valve. ANATOMY: 1. Left main coronary artery is bifurcating into left anterior descending and left circumflex artery with no obstructive disease. 2. The left anterior descending artery is moderate in size. Diagonal artery has 90% ostial stenosis, which has been present for the last 4 years, did not change. Small artery 1.5 mm, treated medically. 3. Left circumflex artery is moderate in size, 50% stenosis at the mid circumflex artery which has been present for the last 3 years, did not change, treated medically. 4. Right coronary artery: The right coronary artery has 3 stents at the midportion. Proximally there is an ulcerated plaque with 90% stenosis. Successful balloon angioplasty, then deployment of drug-eluting stent 4 x 18 mm Xience Alpine stent, expanded to 4.2 mm. 5. Left ventriculogram was done in the right anterior oblique position. The left ventricle is normal in size with normal contractility. Systolic function is normal. Estimated ejection fraction 60%. Left ventriculogram was done in the right anterior oblique position. The left ventricle is normal in size. Subtle hypokinesia at the inferior wall. Estimated ejection fraction 40 to 50%. IN CONCLUSION: 1. Ulcerated plaque in the proximal right coronary artery with 90% stenosis. Successful balloon angioplasty, then deployment of Xience Alpine 4 x 18 mm drug-eluting stent expanded to 4.2 mm with excellent results. No residual stenosis. Mild disease in the old stent in the midright coronary artery, nonobstructive disease. 2. 50% mid left circumflex artery stenosis, did not foreign exchange trader the last 3 years, treated medically. 3. 80 to 90% ostial diagonal artery stenosis, that is small artery less than 1.5 mm in diameter, treated medically and did not foreign exchange trader the last 3 years. 4. Normal left ventricular size. Subtle hypokinesia at the inferior wall preserved systolic function. Estimated ejection fraction 50 to 60%. DISCUSSION AND RECOMMENDATION: The patient will be treated. I will continue maximizing medical therapy. No intervention is warranted for the circumflex and diagonal artery. Job ID: [id number] Dictated Date: 09/16/2016 10:08:57 Vibration Technician Date: 09/17/2016 22:35:35 / elizabeth
== END 2016-09-17 10:35 | disposition home or self-care (01) ==
LOC: EDUNIT# 11:50 → ER 11:51 → ICU 13:21 → CATH 13:21 → UNDOADMIN 13:21 → UNDODISIN 09-17 10:35 → CATH 09-17 10:35
PROVIDERS: ATTEND Internal Medicine
DX: I25.110 Atherosclerotic heart disease of native coronary artery with unstable angina pectoris (principal); Z87.891 Personal history of nicotine dependence; E78.5 Hyperlipidemia, unspecified; Z95.5 Presence of coronary angioplasty implant and graft; I10 Essential (primary) hypertension; F32.9 Major depressive disorder, single episode, unspecified; Z82.49 Family history of ischemic heart disease and other diseases of the circulatory system; Z79.899 Other long term (current) drug therapy
CPT/HCPCS: 36415; 71010; 80048; 80053; 80061; 82150; 83690; 83735; 83874; 84484; 85025; 85027; 85347; 85379; 85610; 85730; 93005; 93041; 93458

== ENCOUNTER 2017-10-08 09:54 | Day surgery (SDC) | payer BC ==
[2017-10-08] VITALS (9 sets, daily range): BP systolic 109–136; BP diastolic 62–98
[~2017-10-08] VITALS: Ht 188 cm; Wt 95.3 kg
[~2017-10-08 09:54] MED LIST changes: +AMLO5TAB2 PO; +ASPI-983 PO; +LISI-552 PO; +MELA1TAB15 PO; +MUPI22OI2 TOP; +NITR0.4T SL; +ROSU40TA21 PO; +SULF-222 PO
[2017-10-08] MEDS ORDERED: ASPIRIN 81 MG CHEW (CHILDREN'S ASA) PO ONE (10:15)
[2017-10-08 10:23] LABS: BASOPHILS # (AUTO) 0.1 10^3/uL (0.0-0.1); BASOPHILS % (AUTO) 1 % (0-10); EOSINOPHILS # (AUTO) 0.1 10^3/uL (0.0-0.3); EOSINOPHILS % (AUTO) 2 % (0-10); HEMATOCRIT 42 % (40-54); HEMOGLOBIN 14.9 G/DL (13.3-17.7); LYMPHOCYTES % (AUTO) 33 % (12-44); MEAN CORPUSCULAR HEMOGLOBIN 33 PG (25-34); MEAN CORPUSCULAR HGB CONC 36 G/DL (32-36); MEAN CORPUSCULAR VOLUME 93 FL (80-99); MEAN PLATELET VOLUME 9.3 FL (7.4-10.4); MONOCYTES # (AUTO) 0.6 X 10^3 (0.0-1.0); MONOCYTES % (AUTO) 11 % (0-12); NEUTROPHILS # (AUTO) 3.1 X 10^3 (1.8-7.8); NEUTROPHILS % (AUTO) 53 % (42-75); PLATELET COUNT 229 10^3/uL (130-400); RED BLOOD COUNT 4.53 10^6/uL (4.35-5.85); RED CELL DISTRIBUTION WIDTH 12.3 % (10.0-14.5); WHITE BLOOD COUNT 5.9 10^3/uL (4.3-11.0)
--- NOTE | 2017-10-08 10:24 | ED Chest Pain ---
General Chief Complaint: Chest Pain Stated Complaint: CHEST PAIN Nursing Triage Note: ARRIVED VIA POV FROM HOME. STATES HE WOKE UP AT 0200 WITH CP ET TOOK A NITRO AND WENT BACK TO BED. CHEST PAIN OFF AND ON THRU THE NOC THAT WENT INTO LEFT ARM. PT HAS TAKEN A TOTAL OF THREE NITRO AND ONE BABY ASA. Nursing Sepsis Screen: No Definite Risk Source: patient Exam Limitations: no limitations History of Present Illness Date Seen by Provider: Oct 08, 2017 Time Seen by Provider: 10:15 Initial Comments Patient present to ER by private conveyance with a chief complaint is having some chest pain that started about 2:00 this morning. He has a known history of coronary disease and has multiple stents. He is known to Dr. Fermin. He took a nitroglycerin and his pain went away for a couple hours and had to take another nitroglycerin at 5:00 in the morning. His pain went away. He went to work and again about 7:00 had take another nitroglycerin. When his chest pain came back again this morning he decided to just come to the ER. En route to the ER as chest pain went away spontaneously. He got total dose of 3 nitros. He is to call of his morning meds as he is supposed to. He does not have a history of diabetes. Stopped smoking 20 years ago. No nausea. His pain does radiate to his left arm but not his neck or jaw. No chills sweats. He says the pain is really medicine of the pain he was feeling with his angina in the past. Allergies and Home Medications Allergies Coded Allergies: SANTOSANo Known Allergies (Verified Allergy, Unknown, 06/01/07) Home Medications Amlodipine Besylate 5 Mg Tablet, 5 MG PO DAILY, (Reported) LAST FILLED #30 06-24-16 Ascorbic Acid 500 Mg Tablet, 500 MG PO DAILY, (Reported) Aspirin 81 Mg Tablet.dr, 81 MG PO DAILY, (Reported) Carvedilol 25 Mg Tablet, 25 MG PO BID, (Reported) Citalopram Hydrobromide 40 Mg Tablet, 40 MG PO DAILY, (Reported) Clopidogrel 75 Mg Tablet, 75 MG PO DAILY, (Reported) LAST FILLED #30 06-24-16 Lisinopril 20 Mg Tablet, 20 MG PO DAILY, (Reported) Melatonin/Pyridoxine 1 Each Tablet, 5 MG PO HS PRN for SLEEP, (Reported) Mupirocin 22 Gm Oint...g., TOP TID, (Reported) FILLED 09-11-16 Nitroglycerin 0.4 Mg Tab.subl, 0.4 MG SL UD PRN for CHEST PAIN, (Reported) [place] 3 Polyunsat Fatty Acids 1,000 Mg Cap, 1,000 MG PO BID WITH MEALS, #100 Ref 4 Prescribed by: JORDAN FERMIN on 09/17/16 0858 Rosuvastatin Calcium 40 Mg Tablet, 40 MG PO HS, (Reported) Sulfamethoxazole/Trimethoprim 1 Each Tablet, 1 TAB PO BID, (Reported) 10 DAY SUPPLY FILLED 09-11-16 Review of Systems Constitutional: No chills, No diaphoresis EENTM: No Eye Pain, No Ear Pain Respiratory: Denies Cough, Denies Shortness of Air Cardiovascular: See HPI, Chest Pain, Denies Edema, Denies Irregular Heart Rate , Denies Lightheadedness, Denies Palpitations, Denies Syncope Gastrointestinal: Denies Abdomen Distended, Denies Abdominal Pain, Denies Constipated, Denies Diarrhea, Denies Nausea, Denies Vomiting Genitourinary: Denies Burning, Denies Discharge Past [id number]-Uqbdak-Ngpmle Hx Patient Social History Alcohol Use: Denies Use Recreational Drug Use: No Drug of Choice: marijuana Smoking Status: Never a Smoker Type Used: Cigarettes Former Smoker, Quit: Aug 27, 1996 Recent Foreign Travel: No Contact w/Someone Who Travel: No Recent Infectious Disease Expo: No Recent Hopitalizations: No Immunizations Up To Date Tetanus Booster (TDap): Unknown Seasonal Allergies Seasonal Allergies: No Surgeries History of Surgeries: Yes (HERNIA REP, macrodiscetomy, cardiac stents x 3) Surgeries: Abdominal, Coronary Stent, Orthopedic Respiratory History of Respiratory Disorde: Yes (asthma) Respiratory Disorders: Asthma Cardiovascular History of Cardiac Disorders: Yes (x3 HEART STENTs) Cardiac Disorders: Coronary Artery Disease, Hypertension Neurological History of Neurological Disord: No Reproductive System Hx Reproductive Disorders: No Genitourinary History of Genitourinary Disor: No Genitourinary Disorders: Kidney Stones Gastrointestinal History of Gastrointestinal Di: Yes Gastrointestinal Disorders: Abdominal Hernia Musculoskeletal History of Musculoskeletal Dis: Yes (RIGHT ROTATOR CUFF) Endocrine History of Endocrine Disorders: No HEENT History of HEENT Disorders: No Cancer History of Cancer: No Psychosocial History of Psychiatric Problem: Yes Behavioral Health Disorders: Depression Integumentary History of Skin or Integumenta: No Blood Transfusions History of Blood Disorders: No Family Medical History Family Medial History: Alcoholism 03 FATHER Cancer 03 FATHER (lung ) Family history: Cardiovascular disease 03 FATHER (triple bypass) 03 MOTHER (multiple stents) Family history: Diabetes mellitus 03 MOTHER History of - disorder 03 MOTHER (macular degeneration) Physical Exam Vital Signs Vital Signs - First Documented 10/08/17 09:56 Temp 98.5 Pulse 86 Resp 18 B/P (MAP) 132/96 (108) Pulse Ox 96 Capillary Refill : Less Than 3 Seconds General Appearance: No Apparent Distress, WD/WN HEENT: PERRL/EOMI, Pharynx Normal Neck: Full Range of Motion, Non Tender, Supple Respiratory: Chest Non Tender, Lungs Clear, Normal Breath Sounds, No Accessory Muscle Use, No Respiratory Distress Cardiovascular: Regular Rate, Rhythm, No Edema, No Murmur, Normal Peripheral Pulses Gastrointestinal: Normal Bowel Sounds, Non Tender, Soft Extremity: Non Tender, No Calf Tenderness, No Pedal Edema Neurologic/Psychiatric: Alert, Oriented x3 Skin: Normal Color, Warm/Dry Progress/Results/Core Measures Results/Orders Lab Results Laboratory Tests Test 10/08/17 10:10 10/08/17 10:35 Range/Units White Blood Count 5.9 4.3-11.0 10^3/uL Red Blood Count 4.53 4.35-5.85 10^6/uL Hemoglobin 14.9 13.3-17.7 G/DL Hematocrit 42 40-54 % Mean Corpuscular Volume 93 80-99 FL Mean Corpuscular Hemoglobin 33 25-34 PG Mean Corpuscular Hemoglobin Concent 36 32-36 G/DL Red Cell Distribution Width 12.3 10.0-14.5 % Platelet Count 229 130-400 10^3/uL Mean Platelet Volume 9.3 7.4-10.4 FL Neutrophils (%) (Auto) 53 42-75 % Lymphocytes (%) (Auto) 33 12-44 % Monocytes (%) (Auto) 11 0-12 % Eosinophils (%) (Auto) 2 0-10 % Basophils (%) (Auto) 1 0-10 % Neutrophils # (Auto) 3.1 1.8-7.8 X 10^3 Lymphocytes # (Auto) 2.0 1.0-4.0 X 10^3 Monocytes # (Auto) 0.6 0.0-1.0 X 10^3 Eosinophils # (Auto) 0.1 0.0-0.3 10^3/uL Basophils # (Auto) 0.1 0.0-0.1 10^3/uL Sodium Level 140 135-145 MMOL/L Potassium Level 4.2 3.6-5.0 MMOL/L Chloride Level 107 98-107 MMOL/L Carbon Dioxide Level 26 21-32 MMOL/L Anion Gap 7 5-14 MMOL/L Blood Urea Nitrogen 7 7-18 MG/DL Creatinine 0.84 0.60-1.30 MG/DL Estimat Glomerular Filtration Rate > 60 BUN/Creatinine Ratio 8 Glucose Level 92 70-105 MG/DL Calcium Level 9.2 8.5-10.1 MG/DL Magnesium Level 2.1 1.8-2.4 MG/DL Total Bilirubin 0.6 0.1-1.0 MG/DL Aspartate Amino Transf (AST/SGOT) 17 5-34 U/L Alanine Aminotransferase (ALT/SGPT) 20 0-55 U/L Alkaline Phosphatase 81 40-136 U/L Myoglobin 52.5 10.0-92.0 NG/ML Troponin I < 0.30 <0.30 NG/ML B-Type Natriuretic Peptide 16.5 <100.0 PG/ML Total Protein 6.6 6.4-8.2 GM/DL Albumin 4.2 3.2-4.5 GM/DL Lipase 154 H 8-78 U/L Prothrombin Time 13.0 12.2-14.7 SEC INR Comment 1.0 0.8-1.4 Activated Partial Thromboplast Time 25 24-35 SEC My Orders Orders - SHAN MOLINA Cbc With Automated Diff (10/08/17 10:14) Magnesium (10/08/17 10:14) Chest 1 View, Ap/Pa Only (10/08/17 10:14) Ekg Tracing (10/08/17 10:14) Cardiac Profile 1 (10/08/17 10:14) Comprehensive Metabolic Panel (10/08/17 10:14) Myoglobin Serum (10/08/17 10:14) Protime With Inr (10/08/17 10:14) Partial Thromboplastin Time (10/08/17 10:14) O2 (10/08/17 10:14) Monitor-Rhythm Ecg Trace Only (10/08/17 10:14) Lipid Panel (10/09/17 06:00) Aspirin Chewable Tablet (Baby Aspirin Ch (10/08/17 10:15) Saline Lock/Iv-Start (10/08/17 10:14) Lipase (10/08/17 10:14) BNP (10/08/17 10:14) Medications Given in ED Current Medications Medications Dose Ordered Sig/Jorge Route Start Time Stop Time Status Last Admin Dose Admin Aspirin 324 mg ONCE ONCE PO 10/08/17 10:15 10/08/17 10:16 DC 10/08/17 10:29 324 MG Vital Signs/I&O Vital Sign - Last 12Hours 10/08/17 09:56 Temp 98.5 Pulse 86 Resp 18 B/P (MAP) 132/96 (108) Pulse Ox 96 Blood Pressure Mean: 108 Progress Note : Time: 10:22 Progress Note Stable angina that is not resolving after 3 doses of nitroglycerin. He is not in pain right now so we'll hold off doing any nitroglycerin. His blood pressure is good. Plan to see what the troponin is in then talk to Dr. Fermin. ECG Initial ECG Impression Date: Oct 08, 2017 Initial ECG Impression Time: 09:58 Initial ECG Rate: 67 Initial ECG Rhythm: Normal Sinus Initial ECG Intervals: Normal Initial ECG Impression: Normal Initial ECG Comparisson: Unchanged Comment No significant T-wave elevation or depression. Diagnostic Imaging Diagonstic Imaging: Xray Plain Films/CT/US/NM/MRI: chest (1v) Reviewed: Reviewed by Me Departure Communication (Admissions) Time/Spoke to Admitting Phy: 11:[address] Queen and the agrees with cardiac consultation observation. Time/Spoke to Consulting Phy: 11:32 Communication/Consulting Discussed case lab imaging EKG with Dr. Fermin and he will see the patient. Impression Impression: Primary Impression: Chest pain Qualified Codes: I20.0 - Unstable angina Disposition: 09 ADMITTED INPATIENT Condition: Stable Admissions Decision to Admit Reason: Admit from ER (General) Decision to Admit/Date: Oct 08, 2017 Time/Decision to Admit Time: 11:40 Departure-Patient Inst. Referrals: VERENICE QUEEN MD (PCP/Family) Primary Care Physician Copy Copies To 1: VERENICE QUEEN MD, TITUS J Oct 08, 2017 10:24
--- NOTE | 2017-10-08 10:39 | Diagnostic Imaging Report ---
Clinical indication: A patient with chest pain since last week. Exam: Portable chest x-ray upright view. Comparisons: Chest x-ray dated 09/15/2016. Findings: Lungs/pleura: There is interval improved aeration of the left lung base with resolution of the previously seen minimal atelectasis. Lungs are clear. There is no pneumothorax. There is no pleural effusion. Mediastinum: Unremarkable. Pulmonary vasculature: Unremarkable. Heart: Unremarkable. Bones/extrathoracic soft tissue: There are small degenerative spurs involving the thoracic spine. Impression: There is no radiographic evidence of acute cardiopulmonary process. Dictated by: Dictated on workstation # [id number]
[2017-10-08 10:42] LABS: ALANINE AMINOTRANSFERASE 20 U/L (0-55); ALBUMIN 4.2 GM/DL (3.2-4.5); ALKALINE PHOSPHATASE 81 U/L (40-136); BILIRUBIN,TOTAL 0.6 MG/DL (0.1-1.0); BUN/CREATININE RATIO 8; CALCIUM 9.2 MG/DL (8.5-10.1); CARBON DIOXIDE 26 MMOL/L (21-32); CHLORIDE 107 MMOL/L (98-107); CREATININE SERUM 0.84 MG/DL (0.60-1.30); GFR ESTIMATED > 60; GLUCOSE 92 MG/DL (70-105); LIPASE 154 U/L (8-78); MAGNESIUM 2.1 MG/DL (1.8-2.4); POTASSIUM 4.2 MMOL/L (3.6-5.0); SODIUM 140 MMOL/L (135-145); TOTAL PROTEIN 6.6 GM/DL (6.4-8.2)
[2017-10-08 10:48] LABS: MYOGLOBIN SERUM 52.5 NG/ML (10.0-92.0)
[2017-10-08] MEDS ORDERED: LIDOCAINE 1% INJ 50 ML (XYLOCAINE) VIAL ONE (12:27)
[2017-10-08] MEDS ORDERED: HEParin (CATH LAB) 2,000 ML IV ONE (12:27)
[2017-10-08] MEDS ORDERED: NS IV 1000 ML 1,000 ML IV SCH ×2 (12:30→16:55)
--- NOTE | 2017-10-08 12:41 | Consultation-Cardiology ---
HPI-Cardiology Cardiology Consultation Date of Consultation 10/08/17 Date of Admission Time Seen by Provider: 12:35 Indication: chest pain HPI 52 years old gentleman with extensive history of coronary artery disease multiple intervention in the past, last cardiac catheterization was carried out in August 2016, has been doing well until last week when he had few episode of chest pain responded to sublingual nitroglycerin. This morning he started having chest pain woke him up from sleep at 5 a.m. left sided dull achiness radiating to the left arm with left arm pain and numbness. Took nitroglycerin and felt better went back to sleep woke up again with another episode of chest pain responded to sublingual nitroglycerin again and then had a third episode at work and he came to the emergency room. He was feeling better upon my evaluation but still having some discomfort in the chest area. EKG and cardiac enzymes were negative, denied any diaphoresis, shortness of breath, palpitation , syncope or near syncopal episode Home Medications & Allergies Allergies: Coded Allergies: NKANo Known Allergies (Verified Allergy, Unknown, 06/01/07) Home Medication List Reviewed: Yes LJR-Ywfvku-Xchroa Hx Patient Social History Marital Status: Employed/Student: employed Alcohol Use: Denies Use Recreational Drug Use: No Drug of Choice: marijuana Smoking Status: Never a Smoker Type Used: Cigarettes Recent Foreign Travel: No Recent Infectious Disease Expo: No Recent Hopitalizations: No Immunizations Up To Date Tetanus Booster (TDap): Unknown Past Medical History Past medical history as discussed below Family Medical History Family History: 03 FATHER Alcoholism Cancer (lung ) Family history: Cardiovascular disease (triple bypass) 03 MOTHER Family history: Cardiovascular disease (multiple stents) Family history: Diabetes mellitus History of - disorder (macular degeneration) Constitutional: see HPI EENTM: see HPI Respiratory: see HPI, No cough, No dyspnea on exertion, No hemoptysis, No orthopnea, No phlegm, No short of breath, No stridor, No wheezing, No other Cardiovascular: see HPI, chest pain, No edema, No Hx of Intervention, No palpitations, No syncope, No vascular heart diseas, No other Gastrointestinal: see HPI Genitourinary: see HPI Musculoskeletal: see HPI Skin: see HPI Psychiatric/Neurological: No Symptoms Reported, See HPI Reviewed Test Results Reviewed Test Results Lab Laboratory Tests Test 10/08/17 10:10 10/08/17 10:35 Range/Units White Blood Count 5.9 4.3-11.0 10^3/uL Red Blood Count 4.53 4.35-5.85 10^6/uL Hemoglobin 14.9 13.3-17.7 G/DL Hematocrit 42 40-54 % Mean Corpuscular Volume 93 80-99 FL Mean Corpuscular Hemoglobin 33 25-34 PG Mean Corpuscular Hemoglobin Concent 36 32-36 G/DL Red Cell Distribution Width 12.3 10.0-14.5 % Platelet Count 229 130-400 10^3/uL Mean Platelet Volume 9.3 7.4-10.4 FL Neutrophils (%) (Auto) 53 42-75 % Lymphocytes (%) (Auto) 33 12-44 % Monocytes (%) (Auto) 11 0-12 % Eosinophils (%) (Auto) 2 0-10 % Basophils (%) (Auto) 1 0-10 % Neutrophils # (Auto) 3.1 1.8-7.8 X 10^3 Lymphocytes # (Auto) 2.0 1.0-4.0 X 10^3 Monocytes # (Auto) 0.6 0.0-1.0 X 10^3 Eosinophils # (Auto) 0.1 0.0-0.3 10^3/uL Basophils # (Auto) 0.1 0.0-0.1 10^3/uL Sodium Level 140 135-145 MMOL/L Potassium Level 4.2 3.6-5.0 MMOL/L Chloride Level 107 98-107 MMOL/L Carbon Dioxide Level 26 21-32 MMOL/L Anion Gap 7 5-14 MMOL/L Blood Urea Nitrogen 7 7-18 MG/DL Creatinine 0.84 0.60-1.30 MG/DL Estimat Glomerular Filtration Rate > 60 BUN/Creatinine Ratio 8 Glucose Level 92 70-105 MG/DL Calcium Level 9.2 8.5-10.1 MG/DL Magnesium Level 2.1 1.8-2.4 MG/DL Total Bilirubin 0.6 0.1-1.0 MG/DL Aspartate Amino Transf (AST/SGOT) 17 5-34 U/L Alanine Aminotransferase (ALT/SGPT) 20 0-55 U/L Alkaline Phosphatase 81 40-136 U/L Myoglobin 52.5 10.0-92.0 NG/ML Troponin I < 0.30 <0.30 NG/ML B-Type Natriuretic Peptide 16.5 <100.0 PG/ML Total Protein 6.6 6.4-8.2 GM/DL Albumin 4.2 3.2-4.5 GM/DL Lipase 154 H 8-78 U/L Prothrombin Time 13.0 12.2-14.7 SEC INR Comment 1.0 0.8-1.4 Activated Partial Thromboplast Time 25 24-35 SEC Physical Exam Vital Signs Vital Signs - First Documented 10/08/17 10/08/17 09:56 12:22 Temp 98.5 Pulse 86 Resp 18 B/P (MAP) 132/96 (108) Pulse Ox 96 O2 Delivery Room Air Capillary Refill : Less Than 3 Seconds General Appearance: No Apparent Distress, WD/WN Eyes: Bilateral Eye Normal Inspection, Bilateral Eye PERRL, Bilateral Eye EOMI HEENT: PERRL/EOMI, TMs Normal, Normal ENT Inspection, Pharynx Normal Neck: Full Range of Motion, Normal Inspection, Non Tender, Supple, Carotid Bruit Respiratory: Chest Non Tender, Lungs Clear, Normal Breath Sounds, No Accessory Muscle Use, No Respiratory Distress Cardiovascular: Regular Rate, Rhythm, No Edema, No Gallop, No JVD, No Murmur, Normal Peripheral Pulses Gastrointestinal: Normal Bowel Sounds, No Organomegaly, No Pulsatile Mass, Non Tender, Soft Back: Normal Inspection, No CVA Tenderness, No Vertebral Tenderness Extremity: Normal Capillary Refill, Normal Inspection, Normal Range of Motion, Non Tender, No Calf Tenderness, No Pedal Edema Neurologic/Psychiatric: Alert, Oriented x3, No Motor/Sensory Deficits, Normal Mood/Affect Skin: Normal Color, Warm/Dry Lymphatic: No Adenopathy A/P-Cardiology Admission Diagnosis Unstable angina Coronary artery disease Hypertension Hyperlipidemia Assessment/Plan Chest pain, unstable angina, having active chest pain. Extensive cardiac history, planning to proceed with cardiac catheterization. Coronary artery disease, history of PTCA and stent done in 2005 using 4.020 mm Liberte stent to the right coronary artery. Was hospitalized in November 2013 with unstable angina. Underwent cardiac catheterization which showed 80 percent midright coronary artery stenosis. Underwent successful deployment of 2 overlapping stents 4.012 mm Promus element and 4.08 mm Promus element in the midright coronary artery overlapping with the old stent with excellent results, no residual stenosis. The proximal portion of the right coronary artery has 40 percent stenosis. The circumflex artery has 50-60 percent proximal stenosis, FFR evaluation showed insignificant stenosis. 95 percent stenosis at the first diagonal artery that is fairly small artery not amendable to intervention, repeat cardiac catheterization was done in August 2016 showed ulcerated plaque in the proximal right coronary artery, deployment of Alpine stent 4.018 mm expanded to 4.2 mm with excellent results. Still have 50 percent stenosis at the mid circumflex artery, 80-90 percent ostial diagonal artery that is small artery not amendable to intervention, planning to proceed with cardiac catheterization today. Hypertension, I will restart home medication monitor blood pressure Hyperlipidemia, restart home medication monitor lipidss. Strong family history of heart disease Mild depression, currently under control. Continue to monitor Clinical Quality Measures AMI/AHF: ASA po Prior to arrival: Yes (81 MG) JORDAN NAGY MD Oct 08, 2017 12:41
--- NOTE | 2017-10-08 12:42 | Cardiac Procedure Note-CS/ASA ---
Pre-Procedure Note Pre-Op Procedure Note H&P Reviewed The H&P was reviewed, patient examined and no changes noted. Date H&P Reviewed: Oct 08, 2017 Time H&P Reviewed: 12:41 Conscious Sedation Pre-Proced Time Reviewed: 12:42 ASA Class: 3 Airway Mallampati Classification: ([place] appropriate class) I. II. III, IV Lungs Heart ASA score ASA 1: a normal healthy patient ASA 2: a patient with a mild systemic disease (mid diabetes, controlled hypertension, obesity x ASA 3: a patient with a severe systemic disease that limits activity (angina , COPD, prior Myocardial infarction) ASA 4: a patient with an incapacitating disease that is a constant threat to life (CHF, renal failure) ASA 5: a moribund patient not expected to survive 24 hrs. (ruptured aneurysm) ASA 6: a declared brain patient whose organs are being harvested. For emergent operations, add the letter E after the classification Grade 3 Sedation Plan: Analgesia, Amnesia, Plan communicated to team members, Discussed options with patient/fam, Discussed risks with patient/fam Note The patient is an appropriate candidate to undergo the planned procedure, sedation, and anesthesia. The patient immediately re-assessed prior to indication. JORDAN NAGY MD Oct 08, 2017 12:42 pm
[2017-10-08] MEDS ORDERED: CATHETER FLUSH 10 ML SYR IV PRN (12:45)
[2017-10-08] MEDS ORDERED: ONDANSETRON 4 MG/2 ML (SDV) Z0FRAN IV PRN (13:00)
[2017-10-08] MEDS ORDERED: ACETAMINOPHEN 500 MG TAB (TYLENOL) PO PRN (13:00)
[2017-10-08] MEDS ORDERED: morphine INJ 4 MG/ML 1 ML (VIAL/SYRINGE) IV PRN (13:15)
[2017-10-08] MEDS ORDERED: NITROGLYCERIN 0.4 MG SL TABS BTL 25'S SL PRN ×2 (13:15→17:00)
[2017-10-08] MEDS ORDERED: NITR0.4T42 SL (14:54)
[2017-10-08] MEDS ORDERED: ROSU20TA PO (14:54)
[2017-10-08] MEDS ORDERED: CLOP75TA28 PO (14:54)
[2017-10-08] MEDS ORDERED: ASCO-262 PO (15:22)
[2017-10-08] MEDS ORDERED: CARV25TA PO (15:23)
[2017-10-08] MEDS ORDERED: CITA40TA11 PO (15:23)
[2017-10-08] MEDS ORDERED: MIDAZOLAM 5 MG/5 ML (VERSED) VIAL ONE (15:33)
[2017-10-08] MEDS ORDERED: fentaNYL INJECTION 100 MCG/2 ML AMP ONE (15:33)
[2017-10-08] MEDS ORDERED: NITROGLYCERIN DRIP 25 MG/D5W 250 ML IV ONE (16:17)
[2017-10-08] MEDS ORDERED: ENOXAPARIN 100 MG/1 ML (LOVENOX) SYR ONE (16:17)
[2017-10-08] MEDS ORDERED: CLOPIDOGREL 300 MG (PLAVIX) TABLET PO ONE (16:53)
[2017-10-08] MEDS ORDERED: NON-FORMULARY MEDICATION 1 EA EA (Melatonin/Pyridoxine (Melatonin 5 mg Tablet) 5 MG) PO PRN (17:00)
[2017-10-08] MEDS ORDERED: PATIENT MAY USE OWN MEDS, ALL PO SCH (17:00)
--- NOTE | 2017-10-08 17:01 | Cardiac Cath Report ---
Cardiac Cath Report Physician (s)/Supervisor Screen Making (s) Physician JORDAN NAGY MD Pre-Procedure Diagnosis Pre-Procedure Diagnosis: Coronary artery disease, unstable angina Post-Procedure Note Procedure Start Date: Oct 08, 2017 Name of Procedure: Left heart catheterization, left ventriculogram Stent to the LAD PTCA to the diagonal artery Findings/Procedure Note PROCEDURE NOTE: After explaining the procedure to the patient, all pros and cons were explained, all questions were answered. The patient signed the consent and then she was placed on the cardiac catheterization laboratory. The patient was placed on the cardiac catheterization laboratory. Groin was prepped SL fashion local anesthesia was used. Sheath placed in the right femoral artery. Louann right and left catheter were used to access the coronary system. Pigtail was used to access the left ventricular cavity. Left ventriculogram was done Patient had severe stenosis in the LAD and diagonal artery, FL 4.5 guide was advanced to the left coronary, BMW wire was advanced in the LAD and proximal distally then whisper extra-support advanced in the diagonal artery, predilatation of the ostial diagonal lesion was done with 2.015 mm balloon, multiple inflation, recoil of the vessel was noted then I proceeded with predilatation of the LAD using 3.0x18 millimeter balloon then I proceeded with stent deployment using Alpine 3.0 x 23 mm extended to 3.2 mm with excellent results, angiogram showed recoil of the ostial diagonal lesion. Still patent with good flow. At the end of the procedure the sheath was removed. Closure device was used FINDINGS: Hemodynamics LV 140/15, end-diastolic pressure of 15 Aorta 142/90, mean of 107 ANATOMY: Left Main is free of obstructive disease Left Anterior Descending has severe stenosis at the midportion involving subtotal occlusion at the ostium of diagonal artery, pre-dilating the diagonal artery with 2.015 mm balloon then deployment of stent in the LAD using Alpine 3.023 mm expanded to 3.2 mm with excellent results, recoil of the ostial diagonal artery which appeared to be protected with good flow at this time. Left Circumflex has mild disease nonobstructive disease Right Coronory Artery his dominant artery with proximal and mid stent both stents are patent, mild in-stent restenosis LV Gram was done showing normal left ventricular size and contractile to estimate ejection fraction 60 percent CONCLUSION: 1. Severe mid LAD stenosis, significant deterioration compared to the previous study of 2017, successful balloon angioplasty then deployment of Alpine 3.023 mm expanded to 3.2 mm with excellent results. 2. Severe ostial diagonal artery stenosis, subtotal occlusion, successful balloon angioplasty using 2.015 mm with multiple inflation, with recoil of the area, stent was placed across the diagonal artery, artery is still patent with good flow distally 3. Patent 2 stents in the right coronary artery with mild in-stent restenosis, mild disease at the distal right coronary artery 4. Mild disease in the circumflex artery 5. Normal left ventricular size and systolic function estimated ejection fraction 60 percent DISCUSSION AND RECOMMENDATION: I will continue maximizing medical therapy at this time Anesthesia Type: Conscious Sedation Estimated blood loss (mL): 15 ml Contrast Amount: 183 ml Total Radiation Dose: 1421 mGy Post-Procedure Diagnosis Post-operative diagnosis: Unstable angina Coronary artery disease Hypertension Hyperlipidemia JORDAN NAGY MD Oct 08, 2017 17:01
[2017-10-08] MEDS ORDERED: MELATONIN 3 MG TABLET PO PRN (17:15)
[2017-10-08] MEDS ORDERED: INFLUENZA TRIvalent 2017-2018 0.5 ML/45 MCG SYR IM ONE (17:30)
--- NOTE | 2017-10-08 18:37 | History & Physicial ---
History of Present Illness History of Present Illness Reason for visit/HPI 52-year-old male presents to via [facility] emergency during the morning of October 08, 2017 with pressure over the chest. Patient reports he woke up at approximately 2 a.m. with pressure over the chest and discomfort running down his left arm He is with known coronary disease an he reports he knows symptoms of angina. He did take a nitroglycerin with relief of the pressure. Apparently 2 hours later the discomfort returned and this prompted him to go to the emergency department. Date of Admission Oct 08, 2017 at 11:36 Date Seen by Provider: Oct 08, 2017 Time Seen by Provider: 17:15 I consulted on this patient on 10/08/17 18:32 Attending Physician Andrey Queen MD Admitting Physician Andrey Queen MD Consult Allergies and Home Medications Allergies Coded Allergies: SANTOSANo Known Allergies (Verified Allergy, Unknown, 06/01/07) Home Medications Amlodipine Besylate 5 Mg Tablet, 5 MG PO HS, (Reported) Ascorbate Calcium 500 Mg Tablet, 500-1,000 MG PO DAILY, (Reported) TAKES 1-2 OF A (500 MG) TABLET Aspirin 81 Mg Tablet.dr, 81 MG PO DAILY, (Reported) Carvedilol 25 Mg Tablet, 25 MG PO BID, (Reported) Citalopram Hydrobromide 40 Mg Tablet, 40 MG PO DAILY, (Reported) Clopidogrel Bisulfate 75 Mg Tablet, 75 MG PO DAILY, (Reported) Lisinopril 20 Mg Tablet, 20 MG PO DAILY, (Reported) Melatonin/Pyridoxine 1 Each Tablet, 5 MG PO HS PRN for SLEEP, (Reported) Nitroglycerin 0.4 Mg Tab.subl, 0.4 MG SL UD PRN for CHEST PAIN, (Reported) Rosuvastatin Calcium 20 Mg Tablet, 20 MG PO DAILY, (Reported) Past Pvqjqsu-Ixdcek-Shlagj Hx Patient Social History Marrital Status: Employed/Student: employed Alcohol Use: Rarely Uses Number of Drinks Today: 0 Alcohol Beverage of Choice: Beer Recreational Drug Use: No Drug of Choice: marijuana Smoking Status: Former Smoker Former Smoker, Quit: Aug 27, 1996 Type Used: Cigarettes Physical Abuse Screen: No Sexual Abuse: No Recent Foreign Travel: No Contact w/other who traveled: No Recent Hopitalizations: No Recent Infectious Disease Expo: No Immunizations Up To Date Tetanus Booster (TDap): Unknown Seasonal Allergies Seasonal Allergies: No Surgeries Yes (HERNIA REP, microdiscetomy, cardiac stents x 3, shoulder ) Abdominal, Coronary Stent, Orthopedic Respiratory Yes (asthma as child, no longer) Currently Using CPAP: No Currently Using BIPAP: No Cardiovascular Yes (x3 HEART STENTs) Coronary Artery Disease, Hypertension Neurological No Reproductive System Hx Reproductive Disorders: No Genitourinary No Kidney Stones Gastrointestinal Yes Abdominal Hernia Musculoskeletal Yes (RIGHT ROTATOR CUFF surgery) Endocrine History of Endocrine Disorders: No HEENT History of HEENT Disorders: No Cancer No Psychosocial History of Psychiatric Problem: Yes Behavioral Health Disorders: Depression Integumentary History of Skin or Integumenta: No Blood Transfusions History of Blood Disorders: No Family Medical History Family Hx: Alcoholism 03 FATHER Cancer 03 FATHER (lung ) Family history: Cardiovascular disease 03 FATHER (triple bypass) 03 MOTHER (multiple stents) Family history: Diabetes mellitus 03 MOTHER History of - disorder 03 MOTHER (macular degeneration) Constitutional: see HPI Physical Exam Vital Signs Vital Signs - First Documented 10/08/17 10/08/17 09:56 12:22 Temp 98.5 Pulse 86 Resp 18 B/P (MAP) 132/96 (108) Pulse Ox 96 O2 Delivery Room Air Capillary Refill : Less Than 3 Seconds General Appearance: No Apparent Distress Neck: Full Range of Motion, Supple Respiratory: Lungs Clear Cardiovascular: Regular Rate, Rhythm Gastrointestinal: Soft Rectal: Deferred Back: Normal Inspection Extremity: Normal Capillary Refill, No Calf Tenderness, No Pedal Edema Neurologic/Psychiatric: Alert, Oriented x3 Skin: Normal Color Comments NAME: KEITH [facility]ILLS MED REC#: [id number] PT STATUS: ADM Tru : 1965 PHYSICIAN: SHAN MOLINA MD ADMIT DATE: 10/08/17/ICU Signed Date of Exam: 10/08/17 CHEST 1 VIEW, AP/PA ONLY Clinical indication: A patient with chest pain since last week. Exam: Portable chest x-ray upright view. Comparisons: Chest x-ray dated 09/15/2016. Findings: Lungs/pleura: There is interval improved aeration of the left lung base with resolution of the previously seen minimal atelectasis. Lungs are clear. There is no pneumothorax. There is no pleural effusion. Mediastinum: Unremarkable. Pulmonary vasculature: Unremarkable. Heart: Unremarkable. Bones/extrathoracic soft tissue: There are small degenerative spurs involving the thoracic spine. Impression: There is no radiographic evidence of acute cardiopulmonary process. Dictated by: Dictated on workstation # [id number] Dict: 10/08/17 1036 Trans: 10/08/17 1711 Interpreted by: ASHLEY VEGAS MD Electronically signed by: ASHLEY VEGAS MD 10/08/17 1711 Assessment/Plan Assessment and Plan 1 Chest pain--unstable angina -patient to be admitted for further cardiac study and cardiology consultation with Dr Fermin done in the emergency room 2. Known coronary artery disease with previous 4 stents 3. 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 HLD Problems: Admission Diagnosis 1 Chest pain--unstable angina 2. Known coronary artery disease with previous 4 stents 3. HTN 4. HLD Clinical Quality Measures AMI/AHF: ASA po Prior to arrival: Yes (81 MG) DVT/VTE Risk/Contraindication: Risk Factor Score Per Nursin RFS Level Per Nursing on Admit: 1=Low/No VTE PPX ANDREY QUEEN MD Oct 08, 2017 18:37
[2017-10-08] MEDS: CARVEDILOL 12.5 MG (COREG) TABLET PO SCH (20:38)
[2017-10-08] MEDS ORDERED: amLODIPine 5 MG (NORVASC) TAB PO SCH (21:00)
[2017-10-08] MEDS ORDERED: NON-FORMULARY MEDICATION 1 EA EA (Carvedilol 25 MG) PO SCH (21:00)
[2017-10-08] MEDS ORDERED: ROSUVASTATIN 20 MG (CRESTOR) TABLET PO SCH (21:00)
[2017-10-09] VITALS: BP 117/83
[2017-10-09 03:27] LABS: HEMOGLOBIN 14.2 G/DL (13.3-17.7); MEAN PLATELET VOLUME 9.2 FL (7.4-10.4); RED BLOOD COUNT 4.33 10^6/uL (4.35-5.85); RED CELL DISTRIBUTION WIDTH 12.3 % (10.0-14.5); WHITE BLOOD COUNT 6.1 10^3/uL (4.3-11.0)
[2017-10-09 03:47] LABS: AMYLASE 59 U/L (25-125); BUN/CREATININE RATIO 11; CALCIUM 8.5 MG/DL (8.5-10.1); CARBON DIOXIDE 23 MMOL/L (21-32); CHLORIDE 105 MMOL/L (98-107); CHOLESTEROL 157 MG/DL (< 200); CREATININE SERUM 0.81 MG/DL (0.60-1.30); GFR ESTIMATED > 60; GLUCOSE 105 MG/DL (70-105); HDL CHOLESTEROL 30 MG/DL (40-60); LIPASE 36 U/L (8-78); POTASSIUM 4.1 MMOL/L (3.6-5.0); SODIUM 140 MMOL/L (135-145); TRIGLYCERIDES 301 MG/DL (<150); VLDL CHOLESTEROL 60 MG/DL (5-40)
[2017-10-09 04:00] VITALS: BP 108/72
[2017-10-09 07:58] VITALS: BP 116/78
--- NOTE | 2017-10-09 08:14 | Cardiology Progress Note ---
Subjective Date Seen by Provider: Oct 09, 2017 Time Seen by Provider: 08:12 Subjective/Events-last exam Patient is feeling better, denied any chest pain, groin is healing well Review of Systems General: No Chills, No Night Sweats, No Fatigue, No Malaise, No Appetite, No Other HEENT: No Head Aches, No Visual Changes, No Eye Pain, No Ear Pain, No Dysphasia , No Sinus Congestion, No Post Nasal Drip, No Sore Throat, No Other Pulmonary: No Dyspnea, No Cough, No Pleuritic Chest Pain, No Other Cardiovascular: No: Chest Pain, Palpitations, Orthopnea, Paroxysmal Noc. Dyspnea, Edema, Lt Headedness, Other Objective-Cardiology Exam Last Set of Vital Signs Vital Signs 10/09/17 07:58 Temp 98.6 Pulse 67 Resp 18 B/P (MAP) 116/78 (91) Pulse Ox 95 O2 Delivery Room Air Capillary Refill : Less Than 3 Seconds I&O Intake and Output 10/09/17 00:00 Intake Total 100 ml Balance 100 ml Intake Oral 100 ml # Voids 1 Daily Weight Change No General: Alert, Oriented X3, Cooperative HEENT: Atraumatic, PERRLA Neck: Supple, No JVD, No Thyromegaly Lungs: Clear to Auscultation, Normal Air Movement Heart: Regular Rate, Normal S1, Normal S2, No Murmurs Abdomen: Normal Bowel Sounds, Soft, No Tenderness, No Hepatosplenomegaly, No Masses Extremities: No Clubbing, No Cyanosis, No Edema, Normal Pulses, No Tenderness/ Swelling Skin: No Rashes, No Breakdown, No Significant Lesion Neuro: Normal Gait, Normal Speech, Strength at 5/5 X4 Ext, Normal Tone, Sensation Intact Psych/Mental Status: Mental Status NL, Mood NL Results Lab Laboratory Tests 10/08/17 10:10 10/09/17 03:20 A/P-Cardiology Admission Diagnosis Unstable angina Coronary artery disease Hypertension Hyperlipidemia Assessment/Plan Chest pain, unstable angina, having active chest pain. Status post stenting to the LAD with excellent results, feeling better. Coronary artery disease, history of PTCA and stent done in 2005 using 4.020 mm Liberte stent to the right coronary artery. Was hospitalized in November 2013 with unstable angina. Underwent cardiac catheterization which showed 80 percent midright coronary artery stenosis. Underwent successful deployment of 2 overlapping stents 4.012 mm Promus element and 4.08 mm Promus element in the midright coronary artery overlapping with the old stent with excellent results, no residual stenosis. The proximal portion of the right coronary artery has 40 percent stenosis. The circumflex artery has 50-60 percent proximal stenosis, FFR evaluation showed insignificant stenosis. 95 percent stenosis at the first diagonal artery that is fairly small artery not amendable to intervention, repeat cardiac catheterization was done in August 2016 showed ulcerated plaque in the proximal right coronary artery, deployment of Alpine stent 4.018 mm expanded to 4.2 mm with excellent results. Still have 50 percent stenosis at the mid circumflex artery, 80-90 percent ostial diagonal artery that is small artery not amendable to intervention, cardiac catheterization was done yesterday: 1. Severe mid LAD stenosis, significant deterioration compared to the previous study of 2017, successful balloon angioplasty then deployment of Alpine 3.023 mm expanded to 3.2 mm with excellent results. 2. Severe ostial diagonal artery stenosis, subtotal occlusion, successful balloon angioplasty using 2.015 mm with multiple inflation, with recoil of the area, stent was placed across the diagonal artery, artery is still patent with good flow distally 3. Patent 2 stents in the right coronary artery with mild in-stent restenosis, mild disease at the distal right coronary artery 4. Mild disease in the circumflex artery 5. Normal left ventricular size and systolic function estimated ejection fraction 60 percent Hypertension, continue to monitor blood pressure Hyperlipidemia, hypertriglyceridemia, I will continue on Crestor, and fish oil, educated on avoiding carbohydrates. Strong family history of heart disease Mild depression, currently under control. Continue to monitor Groin is healing well. We will discharge home and follow-up as an outpatient Clinical Quality Measures AMI/AHF: ASA po Prior to arrival: Yes (81 MG) DVT/VTE Risk/Contraindication: Risk Factor Score Per Nursin RFS Level Per Nursing on Admit: 1=Low/No VTE PPX JORDAN NAGY MD Oct 09, 2017 08:14
--- NOTE | 2017-10-09 08:15 | Discharge Inst-Post CATH ---
Discharge Inst-CATH Post Cardiac Cath D/C Inst Follow Up/Plan Take 3 fish oil tablets daily Avoid carbohydrate Appointment with Dr. Fermin's office in 2 weeks CARDIAC CATH DISCHARGE INSTRUCTIONS *Hold Metformin for 48 hours post heart cath. ACTIVITY * Go Home directly and rest. * Limit activity of the leg (or wrist if it was used) for 7 days including aerobics, swimming, jogging, bicycling, etc. * Restrict stair-climbing for 7 days if possible, if not, climb up with your non -cath leg, then bring together on the same step. * Avoid lifting, pushing, pulling or excessive movement of the affected extremity for 7 days. * Customary sexual activity may be resumed after 2 days-use caution not to use a position that strains or causes pain to the affected extremity. * No driving for 24 hours. * NO SMOKING. * Avoid straining for bowel movements for 7 days. * Gentle walking on level ground is allowed. * Returning to work will depend on the type of procedure and the results. Your doctor will discuss this with you. CALL YOUR DOCTOR FOR ANY OF THE FOLLOWING: *If bleeding from the puncture site occurs- Apply gentle pressure to site with clean cloth and call your doctor or EMS. * If a knot or lump forms under the skin, increases in size, or causes pain. * If bruising appears to be worsening or moving further down your leg instead of disappearing. * Temperature above 101 F. CARE OF YOUR GROIN INCISION; * Bruising or purple discoloration of the skin near the puncture site is common. * You may shower only, no bathtub bathing for 5 days. Be careful to avoid slipping as your leg may feel stiff. * If a closure device was used on your femoral artery, please see the attached guide regarding care of the device and your leg. * REMOVE the dressing from your groin the next day after your procedure in the shower. CARE OF YOUR WRIST INCISION; * Bruising or purple discoloration of the skin near the puncture site is common. * You may shower. * DO NOT submerge wrist. * Remove dressing in 24 hours. JORDAN FERMIN MD Oct 09, 2017 08:15
[2017-10-09] MEDS: CARVEDILOL 12.5 MG (COREG) TABLET PO SCH (08:19)
[2017-10-09] MEDS ORDERED: ASPIRIN E.C. 81 MG (ECOTRIN) TAB PO SCH (09:00)
[2017-10-09] MEDS ORDERED: ASPIRIN E.C. 325 MG (ECOTRIN) TABLET PO SCH (09:00)
[2017-10-09] MEDS ORDERED: CLOPIDOGREL 75 MG (PLAVIX) TABLET PO SCH ×2 (09:00)
[2017-10-09] MEDS ORDERED: NON-FORMULARY MEDICATION 1 EA EA (Citalopram Hydrobromide (Citalopram HBr) 40 MG) PO SCH (09:00)
[2017-10-09] MEDS ORDERED: lisINopril 20 MG (ZESTRIL) TAB PO SCH ×2 (09:00)
[2017-10-09] MEDS ORDERED: ROSUVASTATIN 20 MG (CRESTOR) TABLET PO SCH (09:00)
--- NOTE | 2017-10-09 16:35 | Discharge Summary ---
Diagnosis/Chief Complaint Date of Admission Oct 08, 2017 at 11:36 Date of Discharge Oct 09, 2017 at 09:50 Discharge Date: Oct 09, 2017 Discharge Time: 10:30 Admission Diagnosis Admission Diagnosis 1 Chest pain--unstable angina 2. Known coronary artery disease with previous 4 stents 3. HTN 4. HLD Discharge Diagnosis 1 Unstable angina 2. Coronary artery disease 3. HTN 4. HLD Reason Hospital Visit 52-year-old male presents to via [facility] emergency during the morning of October 08, 2017 with pressure over the chest. Patient reports he woke up at approximately 2 a.m. with pressure over the chest and discomfort running down his left arm He is with known coronary disease an he reports he knows symptoms of angina. He did take a nitroglycerin with relief of the pressure. Apparently 2 hours later the discomfort returned and this prompted him to go to the emergency department. Discharge Summary Hospital Course Hospital Course Patient was admitted during the morning of October 08, 2017 with chest pain and deemed to have unstable angina. Cardiology was consulted and he was taken to the catheter lab for evaluation. Patient was found to have significant coronary vessel disease from previous catheterization. Specifically the LAD and an oblique artery were noted to be stenotic. Patient underwent stent placement successfully. See procedure note by Dr. Fermin for full details of stent placement. The cardiology summarization from cardiac catheterization: . 1. Severe mid LAD stenosis, significant deterioration compared to the previous study of 2017, successful balloon angioplasty then deployment of Alpine 3.023 mm expanded to 3.2 mm with excellent results. 2. Severe ostial diagonal artery stenosis, subtotal occlusion, successful balloon angioplasty using 2.015 mm with multiple inflation, with recoil of the area, stent was placed across the diagonal artery, artery is still patent with good flow distally 3. Patent 2 stents in the right coronary artery with mild in-stent restenosis, mild disease at the distal right coronary artery 4. Mild disease in the circumflex artery 5. Normal left ventricular size and systolic function estimated ejection fraction 60 percent Patient was kept overnight on October 08, 2017 and in the morning had no chest pain or any shortness of breath. His CBC revealed stable hemoglobin and he was felt ready for dismissal during the morning of October 09, 2017 Labs Laboratory Tests 10/08/17 10:10: Lipase 154H 10/08/17 10:35: 10/09/17 03:20: Red Blood Count 4.33L, Triglycerides Level 301H, VLDL Cholesterol 60H, HDL Cholesterol 30L Procedures cardiac catheterization Consultations Cardiology Dr. Fermin Discharge Physical Examination Allergies: Coded Allergies: NKANo Known Allergies (Verified Allergy, Unknown, 06/01/07) Vitals & I&Os Vital Signs Date Time Temp Pulse Resp B/P (MAP) Pulse Ox O2 Delivery O2 Flow Rate FiO2 10/09/17 10:14 10/09/17 09:00 Room Air 10/09/17 07:58 98.6 67 18 95 General Appearance: Alert, Oriented X3, No Acute Distress Respiratory: Clear to Auscultation Cardiovascular: No Murmurs Abdominal: Soft Neuro: Normal Speech Discharge Home Medications Reviewed and agree with Discharge Medication list on patient's Discharge Instruction sheet Instructions to Patient/Family Please see electronic discharge instructions given to patient. Clinical Quality Measures AMI/AHF: ASA po Prior to arrival: Yes (81 MG) DVT/VTE Risk/Contraindication: Risk Factor Score Per Nursin RFS Level Per Nursing on Admit: 1=Low/No VTE PPX VERENICE QUEEN MD Oct 09, 2017 16:35
--- OUTSIDE RECORDS SUMMARY | 2017-10-11 12:29 | XMS REPORT | Continuity of Care Document ---
Author Author [facility] Organization [facility] Address Unknown Phone Unavailable Allergies Active Description Code Type Severity Reaction Onset Reported/Identified Relationship to Patient Clinical Status Yes NKANo Known Allergies NKA Miscellaneous Allergy Unknown N/A 06/01/2007 Medications There is no data. Problems Date Dx Coded Attending Type Code Diagnosis Diagnosed By 01/15/2013 DONNIE SCHMITT MD Ot 414.01 CORONARY ATHEROSCLEROSIS OF [place] CORON 01/15/2013 DONNIE SCHMITT MD Ot 726.10 BURSAE TENDONS DIS SHLDER NOS 01/15/2013 DONNIE SCHMITT MD Ot 727.61 ROTATOR CUFF RUPTURE 01/15/2013 DONNIE SCHMITT MD Ot 727.89 SYNOV/TEND/BURSA DIS NEC 01/15/2013 DONNIE CSHMITT MD Ot V45.82 PERCUTANEOUS TRANSLUM CORON ANGIOPLASTY 01/15/2013 DONNIE SCHMITT MD Ot V58.63 LONG-TERM(CURRENT)USE OF ANTIPLATELET/AN 01/15/2013 DONNIE SCHMITT MD, Ot V58.69 OTH MED,LT,CURRENT USE 11/27/2013 JORDAN NAGY MD Ot 272.4 HYPERLIPIDEMIA NEC/NOS 11/27/2013 JORDAN NAGY MD Ot 401.9 HYPERTENSION NOS 11/27/2013 JORDAN NAGY MD Ot 411.1 INTERMED CORONARY SYND 11/27/2013 JORDAN NAGY MD Ot 414.01 CORONARY ATHEROSCLEROSIS OF [place] CORON 11/27/2013 JORDAN NAGY MD Ot V15.81 HX OF PAST NONCOMPLIANCE 11/27/2013 JORDAN NAGY MD Ot V17.49 FAMILY HISTORY OF OTHER CARDIOVASCULAR D 11/27/2013 JORDAN NAGY MD Ot V45.82 PERCUTANEOUS TRANSLUM CORON ANGIOPLASTY 11/27/2013 JORDAN NAGY MD Ot V58.69 OTH MED,LT,CURRENT USE 12/15/2014 Ot V72.84 08/30/2015 Ot 414.00 08/30/2015 Ot 786.50 08/30/2015 DONNIE SCHMITT MD Ot 727.61 08/30/2015 DONNIE SCHMITT MD Ot V72.84 08/30/2015 DONNIE SCHMITT MD Ot V74.8 08/30/2015 Ot V72.84 09/23/2015 JORDAN NAGY MD Ot E78.2 09/23/2015 JORDAN NAGY MD Ot I10 09/23/2015 JORDAN NAGY MD Ot I25.10 09/23/2015 JORDAN NAGY MD Ot R07.89 10/25/2015 JORDAN NAGY MD Ot E78.2 10/25/2015 JORDAN NAGY MD Ot I10 10/25/2015 JORDNA NAGY MD Ot I25.10 10/25/2015 JORDAN NAGY MD Ot R07.89 10/29/2015 JORDAN NAGY MD Ot E78.2 10/29/2015 JORDAN NAGY MD Ot I10 10/29/2015 JORDAN NAGY MD Ot I25.10 10/29/2015 JORDAN NAGY MD Ot R07.89 07/03/2016 Ot 414.00 CORON ATHEROSCLER NOS TYPE VESSEL, NATIV 07/03/2016 Ot 786.50 CHEST PAIN NOS 07/03/2016 DONNIE SCHMITT MD Ot 727.61 ROTATOR CUFF RUPTURE 07/03/2016 DONNIE SCHMITT MD Ot V72.84 EXAM PRE-OPERATIVE NOS 07/03/2016 DONNIE SCHMITT MD Ot V74.8 SCREEN-BACTERIAL DIS NEC 07/03/2016 Ot V72.84 EXAM PRE- OPERATIVE NOS 07/03/2016 JORDAN NAGY MD Ot E78.2 MIXED HYPERLIPIDEMIA 07/03/2016 JORDAN NAGY MD Ot I10 ESSENTIAL (PRIMARY) HYPERTENSION 07/03/2016 JORDAN NAGY MD Ot I25.10 ATHSCL HEART DISEASE OF [place] CORONARY 07/03/2016 JORDAN NAGY MD Ot R07.89 OTHER CHEST PAIN 09/16/2016 Ot 414.00 CORON ATHEROSCLER NOS TYPE VESSEL, NATIV 09/16/2016 Ot 786.50 CHEST PAIN NOS 09/16/2016 DONNIE SCHMITT MD Ot 727.61 ROTATOR CUFF RUPTURE 09/16/2016 DONNIE SCHMITT MD Ot V72.84 EXAM PRE-OPERATIVE NOS 09/16/2016 DONNIE SCHMITT MD Ot V74.8 SCREEN-BACTERIAL DIS NEC 09/16/2016 Ot V72.84 EXAM PRE- OPERATIVE NOS 09/16/2016 JORDAN NAGY MD Ot E78.2 MIXED HYPERLIPIDEMIA 09/16/2016 JORDAN NAGY MD Ot I10 ESSENTIAL (PRIMARY) HYPERTENSION 09/16/2016 JORDAN NAGY MD Ot I25.10 ATHSCL HEART DISEASE OF [place] CORONARY 09/16/2016 JORDAN NAGY MD Ot R07.89 OTHER CHEST PAIN 09/17/2016 GEMMA SANTA MD, Ot E78.5 HYPERLIPIDEMIA, UNSPECIFIED 09/17/2016 GEMMA SANTA MD Ot F32.9 MAJOR DEPRESSIVE DISORDER, SINGLE EPISOD 09/17/2016 GEMMA SANTA MD Ot I10 ESSENTIAL (PRIMARY) HYPERTENSION 09/17/2016 GEMMA SANTA MD Ot I25.110 ATHSCL HEART DISEASE OF [place] COR ART W 09/17/2016 GEMMA SANTA MD Ot Z79.899 OTHER DETENTION (CURRENT) DRUG THERAPY 09/17/2016 GEMMA SANTA MD Ot Z82.49 FAMILY HX OF [place] HEART DIS AND OTH DI 09/17/2016 GEMMA SANTA MD Ot Z87.891 PERSONAL HISTORY OF NICOTINE DEPENDENCE 09/17/2016 GEMMA SANTA MD Ot Z95.5 PRESENCE OF CORONARY ANGIOPLASTY IMPLANT 09/18/2016 Ot 414.00 CORON ATHEROSCLER NOS TYPE VESSEL, NATIV 09/18/2016 Ot 786.50 CHEST PAIN NOS 09/18/2016 DONNIE SCHMITT MD Ot 727.61 ROTATOR CUFF RUPTURE 09/18/2016 DONNIE SCHMITT MD Ot V72.84 EXAM PRE-OPERATIVE NOS 09/18/2016 DONNIE SCHMITT MD Ot V74.8 SCREEN-BACTERIAL DIS NEC 09/18/2016 Ot V72.84 EXAM PRE- OPERATIVE NOS 09/18/2016 JORDAN NAGY MD Ot E78.2 MIXED HYPERLIPIDEMIA 09/18/2016 JORDAN NAGY MD Ot I10 ESSENTIAL (PRIMARY) HYPERTENSION 09/18/2016 JORDAN NAGY MD Ot I25.10 ATHSCL HEART DISEASE OF [place] CORONARY 09/18/2016 JORDAN NAGY MD Ot R07.89 OTHER CHEST PAIN 09/18/2016 GEMMA SANTA MD Ot E78.5 HYPERLIPIDEMIA, UNSPECIFIED 09/18/2016 GEMMA SANTA MD Ot F32.9 MAJOR DEPRESSIVE DISORDER, SINGLE EPISOD 09/18/2016 GEMMA SANTA MD Ot I10 ESSENTIAL (PRIMARY) HYPERTENSION 09/18/2016 GEMMA SANTA MD Ot I25.110 ATHSCL HEART DISEASE OF [place] COR ART W 09/18/2016 GEMMA SANTA MD, Ot Z82.49 FAMILY HX OF [place] HEART DIS AND OTH DI 09/18/2016 GEMMA SANTA MD, Ot Z87.891 PERSONAL HISTORY OF NICOTINE DEPENDENCE 09/18/2016 GEMMA SANTA MD Ot Z95.5 PRESENCE OF CORONARY ANGIOPLASTY IMPLANT 09/22/2016 Ot 414.00 CORON ATHEROSCLER NOS TYPE VESSEL, NATIV 09/22/2016 Ot 786.50 CHEST PAIN NOS 09/22/2016 DONNIE SCHMITT MD Ot 727.61 ROTATOR CUFF RUPTURE 09/22/2016 DONNIE SCHMITT MD Ot V72.84 EXAM PRE-OPERATIVE NOS 09/22/2016 DONNIE SCHMITT MD Ot V74.8 SCREEN-BACTERIAL DIS NEC 09/22/2016 Ot V72.84 EXAM PRE- OPERATIVE NOS 09/22/2016 JORDAN NAGY MD Ot E78.2 MIXED HYPERLIPIDEMIA 09/22/2016 JORDAN NAGY MD Ot I10 ESSENTIAL (PRIMARY) HYPERTENSION 09/22/2016 JORDAN NAGY MD Ot I25.10 ATHSCL HEART DISEASE OF [place] CORONARY 09/22/2016 JORDAN NAGY MD Ot R07.89 OTHER CHEST PAIN 09/28/2016 Ot 414.00 CORON ATHEROSCLER NOS TYPE VESSEL, NATIV 09/28/2016 Ot 786.50 CHEST PAIN NOS 09/28/2016 DONNIE SCHMITT MD Ot 727.61 ROTATOR CUFF RUPTURE 09/28/2016 DONNIE SCHMITT MD Ot V72.84 EXAM PRE-OPERATIVE NOS 09/28/2016 DONNIE SCHMITT MD Ot V74.8 SCREEN-BACTERIAL DIS NEC 09/28/2016 Ot V72.84 EXAM PRE- OPERATIVE NOS 09/28/2016 JORDAN NAGY MD Ot E78.2 MIXED HYPERLIPIDEMIA 09/28/2016 JORDAN NAGY MD Ot I10 ESSENTIAL (PRIMARY) HYPERTENSION 09/28/2016 JORDAN NAGY MD Ot I25.10 ATHSCL HEART DISEASE OF [place] CORONARY 09/28/2016 JORDAN NAGY MD Ot R07.89 OTHER CHEST PAIN 10/03/2016 GEMMA SANTA MD Ot E78.5 HYPERLIPIDEMIA, UNSPECIFIED 10/03/2016 GEMMA SANTA MD Ot F32.9 MAJOR DEPRESSIVE DISORDER, SINGLE EPISOD 10/03/2016 GEMMA SNATA MD, Ot I10 ESSENTIAL (PRIMARY) HYPERTENSION 10/03/2016 GEMMA SANTA MD Ot I25.110 ATHSCL HEART DISEASE OF [place] COR ART W 10/03/2016 GEMMA SANTA MD Ot Z79.899 OTHER DETENTION (CURRENT) DRUG THERAPY 10/03/2016 GEMMA SANTA MD Ot Z82.49 FAMILY HX OF [place] HEART DIS AND OTH DI 10/03/2016 GEMMA SANTA MD, Ot Z87.891 PERSONAL HISTORY OF NICOTINE DEPENDENCE 10/03/2016 GEMMA SANTA MD, Ot Z95.5 PRESENCE OF CORONARY ANGIOPLASTY IMPLANT 02/15/2017 DONNIE SCHMITT MD Ot 727.61 ROTATOR CUFF RUPTURE 02/15/2017 DNONIE SCHMITT MD Ot V72.84 EXAM PRE-OPERATIVE NOS 02/15/2017 DONNIE SCHMITT MD Ot V74.8 SCREEN-BACTERIAL DIS NEC 02/15/2017 Ot V72.84 EXAM PRE- OPERATIVE NOS 02/15/2017 JORDAN NAGY MD Ot E78.2 MIXED HYPERLIPIDEMIA 02/15/2017 JORDAN NAGY MD Ot I10 ESSENTIAL (PRIMARY) HYPERTENSION 02/15/2017 JORDAN NAGY MD Ot I25.10 ATHSCL HEART DISEASE OF [place] CORONARY 02/15/2017 JORDAN NAGY MD Ot R07.89 OTHER CHEST PAIN 02/21/2017 DONNIE SCHMITT MD Ot 727.61 ROTATOR CUFF RUPTURE 02/21/2017 DONNIE SCHMITT MD Ot V72.84 EXAM PRE-OPERATIVE NOS 02/21/2017 KESHIA BYERS, DONNIE Griggs Ot V74.8 SCREEN-BACTERIAL DIS NEC 02/21/2017 Ot V72.84 EXAM PRE- OPERATIVE NOS 02/21/2017 JORDAN NAGY MD Ot E78.2 MIXED HYPERLIPIDEMIA 02/21/2017 JORDAN NAGY MD Ot I10 ESSENTIAL (PRIMARY) HYPERTENSION 02/21/2017 JORDAN NAGY MD Ot I25.10 ATHSCL HEART DISEASE OF [place] CORONARY 02/21/2017 JORDAN NAGY MD Ot R07.89 OTHER CHEST PAIN 07/27/2017 GEMMA SANTA MD, Ot E78.5 HYPERLIPIDEMIA, UNSPECIFIED 07/27/2017 GEMMA SANTA MD, Ot F32.9 MAJOR DEPRESSIVE DISORDER, SINGLE EPISOD 07/27/2017 GEMMA SANTA MD, Ot I10 ESSENTIAL (PRIMARY) HYPERTENSION 07/27/2017 GEMMA SANTA MD, Ot I25.110 ATHSCL HEART DISEASE OF [place] COR ART W 07/27/2017 GEMMA SANTA MD, Ot Z79.899 OTHER DETENTION (CURRENT) DRUG THERAPY 07/27/2017 GEMMA SANTA MD, Ot Z82.49 FAMILY HX OF [place]HE[place] HEART DIS AND OTH DI 07/27/2017 GEMMA SANTA MD, Ot Z87.891 PERSONAL HISTORY OF NICOTINE DEPENDENCE 07/27/2017 GEMMA SANAT MD, Ot Z95.5 PRESENCE OF CORONARY ANGIOPLASTY IMPLANT Procedures Code Description Performed By Performed [place] [id number] DILATION OF 1 COR ART WITH DRUG-ELUT INT 09/16/2016 [id number] MEASURE OF CARDIAC SAMPL PRESSURE, L H 09/16/2016 [id number] FLUOROSCOPY OF MULT COR ART USING L OSM 09/16/2016 [id number] FLUOROSCOPY OF LEFT HEART USING LOW OSMO 09/16/2016 Results Test Result Range Complete blood count (CBC) with automated white blood cell (WBC) differential - 09/15/16 12:01 Blood leukocytes automated count (number/volume) 7.3 10*3/uL 4.3-11.0 Blood erythrocytes automated count (number/volume) 4.99 10*6/uL 4.35-5.85 Venous blood hemoglobin measurement (mass/volume) 16.4 g/dL 13.3-17.7 Blood hematocrit (volume fraction) 46 % 40-54 Automated erythrocyte mean corpuscular volume 92 [foz_us] 80-99 Automated erythrocyte mean corpuscular hemoglobin (mass per erythrocyte) 33 pg 25-34 Automated erythrocyte mean corpuscular hemoglobin concentration measurement ( mass/volume) 36 g/dL 32-36 Automated erythrocyte distribution width ratio 12.0 % 10.0-14.5 Automated blood platelet count (count/volume) 238 10*3/uL 130-400 Automated blood platelet mean volume measurement 9.2 [foz_us] 7.4-10.4 Automated blood neutrophils/100 leukocytes 55 % 42-75 Automated blood lymphocytes/100 leukocytes 31 % 12-44 Blood monocytes/100 leukocytes 12 % 0-12 Automated blood eosinophils/100 leukocytes 2 % 0-10 Automated blood basophils/100 leukocytes 1 % 0-10 Blood neutrophils automated count (number/volume) 4.0 10*3 1.8-7.8 Blood lymphocytes automated count (number/volume) 2.2 10*3 1.0-4.0 Blood monocytes automated count (number/volume) 0.9 10*3 0.0-1.0 Automated eosinophil count 0.1 10*3/uL 0.0-0.3 Automated blood basophil count (count/volume) 0.1 10*3/uL 0.0-0.1 PT panel in platelet poor plasma by coagulation assay - 09/15/16 12:01 Prothrombin time (PT) in platelet poor plasma by coagulation assay 12.8 s 12.2-14.7 INR in platelet poor plasma or blood by coagulation assay 1.0 0.8-1.4 Activated partial thromboplastin time (aPTT) in platelet poor plasma bycoagulation assay - 09/15/16 12:01 Activated partial thromboplastin time (aPTT) in platelet poor plasma bycoagulation assay 25 s 24-35 Fibrin D-dimer FEU measurement in platelet poor plasma (mass/volume) - 12:01 Fibrin D-dimer FEU measurement in platelet poor plasma (mass/volume) 0.27 ug/mL 0.00-0.49 Comprehensive metabolic panel - 09/15/16 12:01 Serum or plasma sodium measurement (moles/volume) 137 mmol/L 135-145 Serum or plasma potassium measurement (moles/volume) 4.2 mmol/L 3.6-5.0 Serum or plasma chloride measurement (moles/volume) 103 mmol/L 98-107 Carbon dioxide 25 mmol/L 21-32 Serum or plasma anion gap determination (moles/volume) 9 mmol/L 5-14 Serum or plasma urea nitrogen measurement (mass/volume) 17 mg/dL 7-18 Serum or plasma creatinine measurement (mass/volume) 1.10 mg/dL 0.60-1.30 Serum or plasma urea nitrogen/creatinine mass ratio 15 NRG Serum or plasma creatinine measurement with calculation of estimated glomerular filtration rate > NRG Serum or plasma glucose measurement (mass/volume) 106 mg/dL 70-105 Serum or plasma calcium measurement (mass/volume) 9.1 mg/dL 8.5-10.1 Serum or plasma total bilirubin measurement (mass/volume) 0.7 mg/dL 0.1-1.0 Serum or plasma alkaline phosphatase measurement (enzymatic activity/volume) 80 U/L 40-136 Serum or plasma aspartate aminotransferase measurement (enzymatic activity/ volume) 17 U/L 5-34 Serum or plasma alanine aminotransferase measurement (enzymatic activity/volume ) 16 U/L 0-55 Serum or plasma protein measurement (mass/volume) 7.1 g/dL 6.4-8.2 Serum or plasma albumin measurement (mass/volume) 4.7 g/dL 3.2-4.5 Magnesium - 09/15/16 12:01 Magnesium 2.1 mg/dL 1.8-2.4 Serum or plasma troponin i.cardiac measurement (mass/volume) - 09/15/16 12:01 Serum or plasma troponin i.cardiac measurement (mass/volume) < ng/ mL <0.30 Myoglobin, serum - 09/15/16 12:01 Myoglobin, serum 226.2 ng/mL 10.0-92.0 Serum or plasma amylase measurement (enzymatic activity/volume) - 09/15/16 12: 01 Serum or plasma amylase measurement (enzymatic activity/volume) 106 U/L 25-125 Lipase - 09/15/16 12:01 Lipase 214 U/L 8-78 Serum or plasma troponin i.cardiac measurement (mass/volume) - 09/15/16 17:57 Serum or plasma troponin i.cardiac measurement (mass/volume) < ng/ mL <0.30 Complete blood count (CBC) with automated white blood cell (WBC) differential - 09/16/16 02:40 Blood leukocytes automated count (number/volume) 5.8 10*3/uL 4.3-11.0 Blood erythrocytes automated count (number/volume) 4.93 10*6/uL 4.35-5.85 Venous blood hemoglobin measurement (mass/volume) 15.7 g/dL 13.3-17.7 Blood hematocrit (volume fraction) 46 % 40-54 Automated erythrocyte mean corpuscular volume 93 [foz_us] 80-99 Automated erythrocyte mean corpuscular hemoglobin (mass per erythrocyte) 32 pg 25-34 Automated erythrocyte mean corpuscular hemoglobin concentration measurement ( mass/volume) 34 g/dL 32-36 Automated erythrocyte distribution width ratio 12.1 % 10.0-14.5 Automated blood platelet count (count/volume) 204 10*3/uL 130-400 Automated blood platelet mean volume measurement 9.8 [foz_us] 7.4-10.4 Automated blood neutrophils/100 leukocytes 35 % 42-75 Automated blood lymphocytes/100 leukocytes 50 % 12-44 Blood monocytes/100 leukocytes 12 % 0-12 Automated blood eosinophils/100 leukocytes 2 % 0-10 Automated blood basophils/100 leukocytes 1 % 0-10 Blood neutrophils automated count (number/volume) 2.0 10*3 1.8-7.8 Blood lymphocytes automated count (number/volume) 2.9 10*3 1.0-4.0 Blood monocytes automated count (number/volume) 0.7 10*3 0.0-1.0 Automated eosinophil count 0.1 10*3/uL 0.0-0.3 Automated blood basophil count (count/volume) 0.1 10*3/uL 0.0-0.1 Comprehensive metabolic panel - 09/16/16 02:40 Serum or plasma sodium measurement (moles/volume) 139 mmol/L 135-145 Serum or plasma potassium measurement (moles/volume) 4.3 mmol/L 3.6-5.0 Serum or plasma chloride measurement (moles/volume) 104 mmol/L 98-107 Carbon dioxide 23 mmol/L 21-32 Serum or plasma anion gap determination (moles/volume) 12 mmol/L 5-14 Serum or plasma urea nitrogen measurement (mass/volume) 15 mg/dL 7-18 Serum or plasma creatinine measurement (mass/volume) 0.94 mg/dL 0.60-1.30 Serum or plasma urea nitrogen/creatinine mass ratio 16 NRG Serum or plasma creatinine measurement with calculation of estimated glomerular filtration rate > NRG Serum or plasma glucose measurement (mass/volume) 97 mg/dL 70-105 Serum or plasma calcium measurement (mass/volume) 9.1 mg/dL 8.5-10.1 Serum or plasma total bilirubin measurement (mass/volume) 0.6 mg/dL 0.1-1.0 Serum or plasma alkaline phosphatase measurement (enzymatic activity/volume) 70 U/L 40-136 Serum or plasma aspartate aminotransferase measurement (enzymatic activity/ volume) 21 U/L 5-34 Serum or plasma alanine aminotransferase measurement (enzymatic activity/volume ) 18 U/L 0-55 Serum or plasma protein measurement (mass/volume) 6.5 g/dL 6.4-8.2 Serum or plasma albumin measurement (mass/volume) 4.3 g/dL 3.2-4.5 Lipid 1996 panel - 09/16/16 02:40 Serum or plasma triglyceride measurement (mass/volume) 155 mg/dL <150 Serum or plasma cholesterol measurement (mass/volume) 159 mg/dL < 200 Serum or plasma cholesterol in HDL measurement (mass/volume) 31 mg/ dL 40-60 Cholesterol in LDL [mass/volume] in serum or plasma by direct assay 111 mg/dL 1-129 Serum or plasma cholesterol in VLDL measurement (mass/volume) 31 mg/ dL 5-40 Lipase - 09/16/16 02:40 Lipase 54 U/L 8-78 Automated blood complete blood count (hemogram) panel - 09/17/16 03:10 Blood leukocytes automated count (number/volume) 7.9 10*3/uL 4.3-11.0 Blood erythrocytes automated count (number/volume) 5.04 10*6/uL 4.35-5.85 Venous blood hemoglobin measurement (mass/volume) 16.5 g/dL 13.3-17.7 Blood hematocrit (volume fraction) 46 % 40-54 Automated erythrocyte mean corpuscular volume 92 [foz_us] 80-99 Automated erythrocyte mean corpuscular hemoglobin (mass per erythrocyte) 33 pg 25-34 Automated erythrocyte mean corpuscular hemoglobin concentration measurement ( mass/volume) 36 g/dL 32-36 Automated erythrocyte distribution width ratio 11.9 % 10.0-14.5 Automated blood platelet count (count/volume) 219 10*3/uL 130-400 Automated blood platelet mean volume measurement 9.7 [foz_us] 7.4-10.4 Whole blood basic metabolic panel - 09/17/16 03:10 Serum or plasma sodium measurement (moles/volume) 136 mmol/L 135-145 Serum or plasma potassium measurement (moles/volume) 4.2 mmol/L 3.6-5.0 Serum or plasma chloride measurement (moles/volume) 105 mmol/L 98-107 Carbon dioxide 20 mmol/L 21-32 Serum or plasma anion gap determination (moles/volume) 11 mmol/L 5-14 Serum or plasma urea nitrogen measurement (mass/volume) 14 mg/dL 7-18 Serum or plasma creatinine measurement (mass/volume) 0.89 mg/dL 0.60-1.30 Serum or plasma urea nitrogen/creatinine mass ratio 16 NRG Serum or plasma creatinine measurement with calculation of estimated glomerular filtration rate > NRG Serum or plasma glucose measurement (mass/volume) 111 mg/dL 70-105 Serum or plasma calcium measurement (mass/volume) 9.1 mg/dL 8.5-10.1 Encounters ACCT No. Visit Date/Time Discharge Status Pt. Type Provider Facility Loc./Unit Complaint [id number] 09/15/2016 13:21:00 09/17/2016 10:35:00 DIS Outpatient GEMMA SANTA MD [facility] CATH UNSTABLE ANGINA [id number] 08/30/2015 07:54:00 08/30/2015 23:59:59 CLS Outpatient JORDAN NAGY MD [facility] CARD CAD,HTN,HLP [id number] 11/26/2013 10:02:00 11/27/2013 15:00:00 DIS Outpatient JORDAN NAGY MD [facility] CATH CHEST PAIN [id number] 01/15/2013 07:55:00 01/15/2013 16:05:00 DIS Outpatient DONNIE SCHMITT MD [facility] SDC RIGHT TORN ROTATOR CUFF [id number] 01/13/2013 10:57:00 01/13/2013 23:59:59 CLS Outpatient DONNIE SCHMITT MD [facility] PREOP RT SHOULDER TORN ROTATOR CUFF [id number] 12/21/2012 09:01:00 12/21/2012 23:59:59 [facility] Outpatient [id number] 12/15/2014 12:51:00 Document Registration [id number] 05/31/2011 10:56:00 Document Registration
== END 2017-10-09 08:15 | disposition home or self-care (01) ==
LOC: EDUNIT# 09:54 → ER 09:56 → UNDOADMOB 11:36 → ICU 11:36 → CATH 12:34 → ICU 12:34 → CATH 10-09 08:15 → UNDODISOB 10-09 09:50
PROVIDERS: ATTEND Family Medicine
DX: I25.110 Atherosclerotic heart disease of native coronary artery with unstable angina pectoris (principal); I10 Essential (primary) hypertension; E78.5 Hyperlipidemia, unspecified; F32.9 Major depressive disorder, single episode, unspecified; Z79.899 Other long term (current) drug therapy; Z79.82 Long term (current) use of aspirin; Z87.891 Personal history of nicotine dependence; Z95.5 Presence of coronary angioplasty implant and graft; Z87.442 Personal history of urinary calculi; Z82.49 Family history of ischemic heart disease and other diseases of the circulatory system
CPT/HCPCS: 36415; 71045; 80048; 80053; 80061; 82150; 83690; 83735; 83874; 83880; 84484; 85025; 85027; 85610; 85730; 93005; 93041; 93306; 93458

== ENCOUNTER → 2019-09-17 | Outpatient (CLI) | payer BC ==
[~2019-09-17] VITALS: Ht 187 cm; Wt 95.0 kg
[~2019-09-17] MED LIST changes: -AMLO5TAB2 PO; +AMLO5TAB9 PO; +ASCO-262 PO; +CATHETER FLUSH 10 ML SYR IV PRN; +CITA40TA11 PO; +CLOP75TA28 PO; +NITR0.4T42 SL; +ROSU20TA2 PO; +ROSU40TA PO; -ROSU40TA21 PO; +ROSU40TA23 PO
[2019-09-17 09:34] VITALS: BP 232/109
--- NOTE | 2019-09-17 20:01 | STRESS TEST ---
DATE OF SERVICE: 09/17/2019 EXERCISE MYOVIEW STRESS TEST REPORT REFERRING PHYSICIAN: . Baseline heart rate is 63. Baseline blood pressure 129/90. Baseline EKG is sinus rhythm with no ischemic changes. In summary, the patient was injected with 10.76 mCi of technetium-99 Myoview and the resting images were obtained. Then, the patient started exercising with a baseline heart rate, blood pressure and EKG mentioned above. The patient was able to exercise for a total of 12 minute 35 seconds on standard Oscar protocol. With peak stress level, he was injected with 30.6 mCi of technetium-99 Myoview. At peak stress level, EKG was showing minimal nondiagnostic changes. During recovery, heart rate and blood pressure returned to baseline. EKG returned to baseline. The resting and stress images were reviewed and compared in the short axis, horizontal long axis, and vertical long axis views. Review of the images showed good radiotracer uptake with typical male pattern. No significant ischemia or infarction. SSS is 4, SDS 1, TID value 1.02. On the gated images, the left ventricle appeared to be normal size with normal contractility. Calculated ejection fraction 50%. CONCLUSION: 1. Excellent exercise tolerance, a total of 12 minutes 35 seconds on standard Oscar protocol, achieving 85% of maximum expected heart rate. 2. Hypertensive response to exercise with peak blood pressure 232/109 returned to baseline during recovery. 3. Minimal nondiagnostic EKG changes with exercise returned to baseline during recovery. 4. Diaphragmatic attenuation with typical male pattern. No significant ischemia or infarction on SPECT images. 5. Normal left ventricular size with normal contractility. Calculated ejection fraction 50%. Job ID: [id number] DocumentID: [id number] Dictated Date: 09/17/2019 16:30:14 [place] Date: 09/17/2019 20:00:25 Dictated By: JORDAN NAGY MD
== END ==
LOC: CARD 07:52
PROVIDERS: ATTEND Internal Medicine Cardiovascular Disease
DX: E78.5 Hyperlipidemia, unspecified (principal); I10 Essential (primary) hypertension; I25.10 Atherosclerotic heart disease of native coronary artery without angina pectoris; R09.89 Other specified symptoms and signs involving the circulatory and respiratory systems
CPT/HCPCS: 78452; 93017

== ENCOUNTER 2019-09-23 05:33 | Outpatient (CLI) | payer BC ==
[~2019-09-23] VITALS: Ht 187 cm; Wt 95.0 kg
[~2019-09-23 05:33] MED LIST changes: -CATHETER FLUSH 10 ML SYR IV PRN; -ROSU40TA PO
[2019-09-23] MEDS ORDERED: ROSU40TA PO (10:44)
[2019-09-23] MEDS ORDERED: OMG1KC PO (10:44)
== END 2019-09-23 12:13 | disposition home or self-care (01) ==
LOC: PREOP 05:33
PROVIDERS: ATTEND Surgery
DX: Z01.818 Encounter for other preprocedural examination (principal)

== ENCOUNTER 2020-07-22 22:04 | Emergency (ER) | payer BC, OTHER ==
[~2020-07-22] VITALS: Ht 188 cm; Wt 95.5 kg
[~2020-07-22 22:04] MED LIST changes: +AMLO-250 PO; -AMLO5TAB9 PO; +ASPI-1238 PO; -ASPI-983 PO; +ROSU40TA PO
--- NOTE | 2020-07-22 22:06 | NUR ---
NOTIFIED JEROME ORTIZ OF PT CONDITION
[2020-07-22] MEDS ORDERED: NITROGLYCERIN 0.4 MG SL TABS BTL 25'S SL PRN (22:15)
[2020-07-22] MEDS ORDERED: ASPIRIN 81 MG CHEW (CHILDREN'S ASA) PO ONE (22:15)
--- NOTE | 2020-07-22 22:25 | NUR ---
Per pt request SL nitro held d/t pain rate of 0/10. Provider notified.
[2020-07-22 22:27] LABS: BASOPHILS # (AUTO) 0.1 10^3/uL (0.0-0.1); BASOPHILS % (AUTO) 1 % (0-10); EOSINOPHILS # (AUTO) 0.1 10^3/uL (0.0-0.3); EOSINOPHILS % (AUTO) 2 % (0-10); HEMATOCRIT 41 % (40-54); LYMPHOCYTES # (AUTO) 2.3 10^3/uL (1.0-4.0); LYMPHOCYTES % (AUTO) 37 % (12-44); MEAN CORPUSCULAR HEMOGLOBIN 32 pg (25-34); MEAN CORPUSCULAR HGB CONC 34 g/dL (32-36); MEAN CORPUSCULAR VOLUME 95 fL (80-99); MEAN PLATELET VOLUME 9.1 fL (9.0-12.2); MONOCYTES # (AUTO) 0.7 10^3/uL (0.0-1.0); MONOCYTES % (AUTO) 11 % (0-12); NEUTROPHILS % (AUTO) 49 % (42-75); PLATELET COUNT 199 10^3/uL (130-400); WHITE BLOOD COUNT 6.2 10^3/uL (4.3-11.0)
[2020-07-22 22:37] LABS: ALBUMIN 3.9 GM/DL (3.2-4.5); CHLORIDE 103 MMOL/L (98-107); POTASSIUM 3.6 MMOL/L (3.6-5.0); SODIUM 140 MMOL/L (135-145)
[2020-07-22 22:38] LABS: AMYLASE 50 U/L (25-125); CALCIUM 8.6 MG/DL (8.5-10.1)
[2020-07-22 22:40] LABS: GLUCOSE 177 MG/DL (70-105); TOTAL PROTEIN 6.1 GM/DL (6.4-8.2)
--- NOTE | 2020-07-22 22:40 | ED Chest Pain ---
General Chief Complaint: Chest Pain Stated Complaint: CP Source: patient Exam Limitations: no limitations History of Present Illness Date Seen by Provider: Jul 22, 2020 Time Seen by Provider: 22:10 Initial Comments PT ARRIVES VIA POV FROM HOME C/O CHEST PAIN SINCE 1999 TOOK NTG X 1 AT 1999 AND PAIN WENT AWAY, THEN RETURNED AROUND 2044 AND TOOK NTG X 2, WITH ONLY PARTIAL RELIEF OF PAIN PAIN WAS 6-7/10 AT WORST, STATES PAIN IS 3-4/10 NOW, AND GETTING BETTER PAIN RADIATES DOWN MEDIAL ASPECT OF LEFT UPPER ARM, AND INTO LEFT JAW NO SHORTNESS OF BREATH NO NAUSEA/VOMITING NO SWEATS NO SWELLING IN LEGS/ FEET OR PAIN IN CALVED DID HAVE SOME MILD PALPITATIONS--STATES "FELT LIKE IT MISSED A COUPLE OF BEATS" PT HAS HAD TN X 1, WITH STENTS X 7 PLUS ANGIOPLASTY. WAS ON PLAVIX, BUT IT WAS DC'D ABOUT A YEAR AGO HAD BEEN ON CRESTOR, BUT HAS NOT TAKEN IT FOR A WEEK, DUE TO CHRONIC AND WORSENING ISSUES WITH DIARRHEA FROM IT. TAKES LISINOPRIL AND 81 MG ASPIRIN PT HAS AN APPOINTMENT WITH DR. 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 NAGY Allergies and Home Medications Allergies Coded Allergies: No Known Drug Allergies (Unverified , 09/23/19) Home Medications Amlodipine Besylate 5 Mg Tablet, 5 MG PO HS, (Reported) Ascorbate Calcium 500 Mg Tablet, 500-1,000 MG PO DAILY, (Reported) TAKES 1-2 OF A (500 MG) TABLET Aspirin 81 Mg Tablet.dr, 81 MG PO DAILY, (Reported) Carvedilol 25 Mg Tablet, 25 MG PO BID, (Reported) Citalopram Hydrobromide 40 Mg Tablet, 40 MG PO DAILY, (Reported) Lisinopril 20 Mg Tablet, 20 MG PO DAILY, (Reported) Melatonin/Pyridoxine 1 Each Tablet, 5 MG PO HS PRN for SLEEP, (Reported) Nitroglycerin 0.4 Mg Tab.subl, 0.4 MG SL UD PRN for CHEST PAIN, (Reported) [place] 3 Polyunsat Fatty Acids 1,000 Mg Cap, 2,000 MG PO DAILY, (Reported) Rosuvastatin Calcium 40 Mg Tablet, 40 MG PO DAILY, (Reported) Patient Home Medication List Home Medication List Reviewed: Yes Review of Systems Review of Systems Constitutional: no symptoms reported EENTM: See HPI (LEFT JAW PAIN ) Respiratory: No Symptoms Reported; Denies Cough, Denies Shortness of Air Cardiovascular: See HPI, Chest Pain; Denies Edema, Denies Lightheadedness; Palpitations Gastrointestinal: No Symptoms Reported; Denies Abdominal Pain, Denies Nausea, Denies Vomiting Genitourinary: No Symptoms Reported Musculoskeletal: see HPI (LEFT ARM PAIN ) Skin: no symptoms reported Psychiatric/Neurological: No Symptoms Reported Endocrine: No Symptoms Reported Hematologic/Lymphatic: No Symptoms Reported Past Vtkuirx-Eisaha-Jcsmkl Hx Past Med/Social Hx: Reviewed and Corrections made Patient Social History Alcohol Use: Occasionally Uses Alcohol Beverage of Choice: Beer Recreational Drug Use: Yes (THC) Drug of Choice: marijuana Smoking Status: Former Smoker Type Used: Cigarettes Former Smoker, Quit: Aug 27, 1996 2nd Hand Smoke Exposure: Yes Recent Foreign Travel: No Contact w/Someone Who Travel: No Recent Hopitalizations: No Immunizations Up To Date Tetanus Booster (TDap): Unknown Seasonal Allergies Seasonal Allergies: No Past Medical History Surgeries: Yes (HERNIA;MICRODISCECTOMY;CARDIAC STENTS X 7;SHOULDER;COLONOSCOPY/POLYP 09/2019) Abdominal, Cardiac, Coronary Stent, Orthopedic Respiratory: Yes (asthma as child, no longer) Asthma Currently Using CPAP: No Currently Using BIPAP: No Cardiac: Yes (x7 HEART STENTs) Coronary Artery Disease, Heart Attack, High Cholesterol, Hypertension Neurological: No Reproductive Disorders: No Sexually Transmitted Disease: No HIV/AIDS: No Genitourinary: Yes Kidney Stones Gastrointestinal: Yes (COLONOSCOPY / POLYPECTOMY X 2 --09/2019) Abdominal Hernia Musculoskeletal: Yes Chronic Back Pain Endocrine: No HEENT: No (READING GLASSES) Loss of Vision: Denies Hearing Impairment: Denies Cancer: No Psychosocial: Yes Depression Integumentary: No Blood Disorders: No Adverse Reaction/Blood Tranf: No (N/A) Family Medical History Alcoholism 03 FATHER Cancer 03 FATHER (lung ) Family history: Cardiovascular disease 03 FATHER (triple bypass) 03 MOTHER (multiple stents) Family history: Diabetes mellitus 03 MOTHER History of - disorder 03 MOTHER (macular degeneration) Physical Exam Vital Signs Vital Signs - First Documented 07/22/20 22:10 Temp 36.6 Pulse 64 Resp 18 B/P (MAP) 118/83 (95) Pulse Ox 96 O2 Delivery Room Air Capillary Refill : Height, Weight, BMI Height: 6'2.00" Weight: 210lbs. 0.0oz. 95.627818rz; 27.16 BMI Method:Stated General Appearance: No Apparent Distress, WD/WN HEENT: PERRL/EOMI Neck: Full Range of Motion, Normal Inspection, Non Tender, Supple; No Carotid Bruit, No JVD Respiratory: Chest Non Tender, Normal Breath Sounds, No Accessory Muscle Use, No Respiratory Distress Cardiovascular: Regular Rate, Rhythm, No Edema, No JVD, No Murmur, Normal Peripheral Pulses Gastrointestinal: Normal Bowel Sounds, No Organomegaly, No Pulsatile Mass, Non Tender, Soft Extremity: Normal Capillary Refill, Normal Inspection, Normal Range of Motion, Non Tender, No Calf Tenderness, No Pedal Edema Neurologic/Psychiatric: Alert, Oriented x3, No Motor/Sensory Deficits, Normal Mood/Affect, 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 experience strategist II-XII Norm as Tested Skin: Normal Color, Warm/Dry Progress/Results/Core Measures Results/Orders Lab Results Laboratory Tests Test 07/22/20 22:20 07/23/20 00:55 Range/Units White Blood Count 6.2 4.3-11.0 10^3/uL Red Blood Count 4.35 4.30-5.52 10^6/uL Hemoglobin 14.0 13.3-17.7 g/dL Hematocrit 41 40-54 % Mean Corpuscular Volume 95 80-99 fL Mean Corpuscular Hemoglobin 32 25-34 pg Mean Corpuscular Hemoglobin Concent 34 32-36 g/dL Red Cell Distribution Width 11.7 10.0-14.5 % Platelet Count 199 130-400 10^3/uL Mean Platelet Volume 9.1 9.0-12.2 fL Immature Granulocyte % (Auto) 0 % Neutrophils (%) (Auto) 49 42-75 % Lymphocytes (%) (Auto) 37 12-44 % Monocytes (%) (Auto) 11 0-12 % Eosinophils (%) (Auto) 2 0-10 % Basophils (%) (Auto) 1 0-10 % Neutrophils # (Auto) 3.0 1.8-7.8 10^3/uL Lymphocytes # (Auto) 2.3 1.0-4.0 10^3/uL Monocytes # (Auto) 0.7 0.0-1.0 10^3/uL Eosinophils # (Auto) 0.1 0.0-0.3 10^3/uL Basophils # (Auto) 0.1 0.0-0.1 10^3/uL Immature Granulocyte # (Auto) 0.0 0.0-0.1 10^3/uL Prothrombin Time 12.3 12.2-14.7 SEC INR Comment 0.9 0.8-1.4 Activated Partial Thromboplast Time 25 24-35 SEC D-Dimer 0.49 0.00-0.49 UG/ML Sodium Level 140 135-145 MMOL/L Potassium Level 3.6 3.6-5.0 MMOL/L Chloride Level 103 98-107 MMOL/L Carbon Dioxide Level 25 21-32 MMOL/L Anion Gap 12 5-14 MMOL/L Blood Urea Nitrogen 20 H 7-18 MG/DL Creatinine 1.09 0.60-1.30 MG/DL Estimat Glomerular Filtration Rate > 60 BUN/Creatinine Ratio 18 Glucose Level 177 H 70-105 MG/DL Calcium Level 8.6 8.5-10.1 MG/DL Corrected Calcium 8.7 8.5-10.1 MG/DL Magnesium Level 2.0 1.6-2.4 MG/DL Total Bilirubin 0.3 0.1-1.0 MG/DL Aspartate Amino Transf (AST/SGOT) 13 5-34 U/L Alanine Aminotransferase (ALT/SGPT) 15 0-55 U/L Alkaline Phosphatase 62 40-136 U/L Total Creatine Kinase 124 30-200 U/L Creatine Kinase MB 2.6 <6.6 NG/ML Myoglobin 40.2 10.0-92.0 NG/ML Troponin I < 0.028 < 0.028 <0.028 NG/ML B-Type Natriuretic Peptide 10.3 <100.0 PG/ML Total Protein 6.1 L 6.4-8.2 GM/DL Albumin 3.9 3.2-4.5 GM/DL Amylase Level 50 25-125 U/L Lipase 39 8-78 U/L My Orders Orders - ENMA RUBIN DO Ed Iv/Invasive Line Start (07/22/20 22:11) Ekg Tracing (07/22/20 22:11) O2 (07/22/20 22:11) Monitor-Rhythm Ecg Trace Only (07/22/20 22:11) Amylase (07/22/20 22:11) BNP (07/22/20 22:11) Cbc With Automated Diff (07/22/20 22:11) Comprehensive Metabolic Panel (07/22/20 22:11) Creatine Kinase (07/22/20 22:11) Creatine Kinase Mb (07/22/20 22:11) Fibrin Degradation Products (07/22/20 22:11) Lipase (07/22/20 22:11) Magnesium (07/22/20 22:11) Protime With Inr (07/22/20 22:11) Partial Thromboplastin Time (07/22/20 22:11) Troponin I (07/22/20 22:11) Chest 1 View, Ap/Pa Only (07/22/20 22:11) O2 (07/22/20 22:11) Ed Iv/Invasive Line Start (07/22/20 22:11) Nitroglycerin 0.4 Mg Btl 25's (Nitrostat (07/22/20 22:15) Aspirin Chewable Tablet (Baby Aspirin Ch (07/22/20 22:15) Myoglobin Serum (07/22/20:20) Troponin I (07/23/20 00:40) Ekg Tracing (07/23/20 00:40) Medications Given in ED Vital Signs/I&O 07/22/20 07/22/20 07/23/20 22:10 22:10 01:45 Temp 36.6 36.6 Pulse 64 64 Resp 18 17 B/P (MAP) 118/83 (95) 135/102 (95) Pulse Ox 96 97 O2 Delivery Room Air Room Air Room Air Progress Progress Note : Progress Note DECLINES ANY NITROGLYCERINE--PT STATES PAIN IS GONE NOW PT OBSERVED IN ER AND 3 HOUR REPEAT TROPONIN AND EKG BOTH NORMAL/UNCHANGED PT FEELS COMFORTABLE GOING HOME Initial ECG Impression Date: Jul 22, 2020 Initial ECG Impression Time: 22:13 Initial ECG Rate: 67 Initial ECG Rhythm: Normal Sinus EKG : EKG Time: 00:54 Rate: 57 Rhythm: Normal Sinus ECG Comparisson: Unchanged Departure Communication (Admissions) [id number]--SPOKE WITH DR. NAGY, HE ADVISES TO OBSERVE IN ER AND DO 3 HOUR REPEAT TROPONIN AND EKG, AND IF NORMAL AND PT REMAINS PAIN-FREE, MAY SEND HOME AND HE WILL SEE PT IN OFFICE NEXT WEEK SCHEDULED Impression Primary Impression: ANGINA Disposition: 01 HOME, SELF-CARE Condition: Improved Departure-Patient Inst. Referrals: VERENICE QUEEN MD (PCP/Family) Primary Care Physician JORDAN NAGY MD Patient Instructions: Angina (DC) Add. Discharge Instructions: CONTINUE YOUR CURRENT MEDICATIONS PRESCRIBED TAKE YOUR NITROGLYCERINE PRESCRIBED/ NEEDED FOR CHEST PAIN KEEP YOUR APPOINTMENT WITH DR. NAGY NEXT WEEK RETURN TO ER IF SYMPTOMS RETURN All discharge instructions reviewed with patient and/or family. Voiced understanding. ENMA RUBIN DO Jul 22, 2020 22:40
[2020-07-22 22:41] LABS: BILIRUBIN,TOTAL 0.3 MG/DL (0.1-1.0); CARBON DIOXIDE 25 MMOL/L (21-32)
[2020-07-22 22:42] LABS: FIBRIN DEGRADATION PRODUCTS 0.49 UG/ML (0.00-0.49); INR 0.9 (0.8-1.4); PROTHROMBIN TIME PATIENT 12.3 SEC (12.2-14.7)
[2020-07-22 22:43] LABS: ALKALINE PHOSPHATASE 62 U/L (40-136); CREATININE SERUM 1.09 MG/DL (0.60-1.30); GFR ESTIMATED > 60
[2020-07-22 22:44] LABS: BUN/CREATININE RATIO 18
[2020-07-22 22:46] LABS: ALANINE AMINOTRANSFERASE 15 U/L (0-55)
[2020-07-22 22:47] LABS: CREATINE KINASE 124 U/L (30-200); LIPASE 39 U/L (8-78)
[2020-07-22 22:53] LABS: CREATINE KINASE MB 2.6 NG/ML (<6.6)
[2020-07-23 01:45] VITALS: BP 135/102
--- NOTE | 2020-07-23 05:52 | Diagnostic Imaging Report ---
EXAMINATION: AP upright portable chest INDICATION: Chest pain. COMPARISON: Multiple priors, most recent performed on 10/08/2017. FINDINGS: There is mild linear left basilar consolidation. The lungs are otherwise clear and the pulmonary vasculature is normal. No pneumothorax or large pleural effusion. Heart size and mediastinal contours are normal and unchanged. No acute osseous abnormality is identified. IMPRESSION: Minimal left basilar consolidation, likely reflecting atelectasis. Otherwise, no radiographic evidence of acute chest disease. Dictated by: Dictated on workstation # [id number]
== END 2020-07-23 01:45 | disposition home or self-care (01) ==
LOC: EDUNIT# 22:04 → ER 22:05
DX: I25.119 Atherosclerotic heart disease of native coronary artery with unspecified angina pectoris (principal); I10 Essential (primary) hypertension; E78.00 Pure hypercholesterolemia, unspecified; F32.9 Major depressive disorder, single episode, unspecified; I25.2 Old myocardial infarction; Z80.1 Family history of malignant neoplasm of trachea, bronchus and lung; Z82.49 Family history of ischemic heart disease and other diseases of the circulatory system; Z83.3 Family history of diabetes mellitus; Z87.891 Personal history of nicotine dependence; Z95.5 Presence of coronary angioplasty implant and graft; Z79.82 Long term (current) use of aspirin
CPT/HCPCS: 36415; 71045; 80053; 82150; 82550; 82553; 83690; 83735; 83874; 83880; 84484; 85025; 85379; 85610; 85730; 93005; 93041

== ENCOUNTER 2022-02-23 10:03 | Emergency (ER) | payer OTHER ==
[~2022-02-23] VITALS: Ht 187 cm; Wt 95.5 kg
[~2022-02-23 10:03] MED LIST changes: -CITA40TA11 PO; +CITA40TA13 PO; -LISI-552 PO; +LISI20TA26 PO
[2022-02-23 10:34] LABS: BASOPHILS # (AUTO) 0.1 10^3/uL (0.0-0.1); BASOPHILS % (AUTO) 1 % (0-10); EOSINOPHILS # (AUTO) 0.1 10^3/uL (0.0-0.3); EOSINOPHILS % (AUTO) 1 % (0-10); HEMATOCRIT 45 % (40-54); HEMOGLOBIN 15.7 g/dL (13.3-17.7); LYMPHOCYTES # (AUTO) 1.3 10^3/uL (1.0-4.0); LYMPHOCYTES % (AUTO) 16 % (12-44); MEAN CORPUSCULAR HEMOGLOBIN 33 pg (25-34); MEAN CORPUSCULAR HGB CONC 35 g/dL (32-36); MEAN CORPUSCULAR VOLUME 93 fL (80-99); MONOCYTES # (AUTO) 0.7 10^3/uL (0.0-1.0); MONOCYTES % (AUTO) 9 % (0-12); NEUTROPHILS % (AUTO) 73 % (42-75); PLATELET COUNT 219 10^3/uL (130-400); WHITE BLOOD COUNT 8.2 10^3/uL (4.3-11.0)
--- NOTE | 2022-02-23 10:39 | Diagnostic Imaging Report ---
INDICATION: Chest pain and abdominal pain as well as fever. TIME OF EXAM: 10:36 AM Comparison is made with prior chest from 07/22/2020. FINDINGS: The heart size is normal. The pulmonary vascularity is unremarkable. The lungs are clear. No infiltrate, effusion or pneumothorax is detected. IMPRESSION: No acute cardiopulmonary process is detected. Dictated by: Dictated on workstation # [id number]
[2022-02-23 10:43] LABS: PROTHROMBIN TIME PATIENT 13.1 SEC (12.2-14.7)
[2022-02-23 10:47] LABS: ALBUMIN 4.3 GM/DL (3.2-4.5); POTASSIUM 4.4 MMOL/L (3.6-5.0)
[2022-02-23 10:49] LABS: CALCIUM 9.2 MG/DL (8.5-10.1)
[2022-02-23 10:50] LABS: TOTAL PROTEIN 6.7 GM/DL (6.4-8.2)
[2022-02-23 10:52] LABS: BILIRUBIN,TOTAL 1.2 MG/DL (0.1-1.0)
[2022-02-23 10:53] LABS: CREATININE SERUM 0.9 MG/DL (0.60-1.30)
[2022-02-23 11:12] LABS: BILIRUBIN,URINE NEGATIVE (NEGATIVE); CLARITY,URINE CLEAR; COLOR,URINE YELLOW; GLUCOSE, URINE (UA) NEGATIVE (NEGATIVE); KETONES,URINE NEGATIVE (NEGATIVE); LEUKOCYTE ESTERASE ,URINE NEGATIVE (NEGATIVE); NITRITE,URINE NEGATIVE (NEGATIVE); PROTEIN,URINE NEGATIVE (NEGATIVE)
[2022-02-23] MEDS ORDERED: LIDOCAINE 2% VISCOUS 15 ML UDC PO ONE (11:15)
[2022-02-23] MEDS ORDERED: ANTACID SUSP 30 ML UDC (MYLANTA) PO ONE (11:15)
[2022-02-23] MEDS ORDERED: ONDANSETRON 4 MG/2 ML (SDV) Z0FRAN IVP ONE (11:15)
[2022-02-23 11:21] LABS: BACTERIA,URINE NEGATIVE /HPF; WBC,URINE RARE /HPF
[2022-02-23] MEDS ORDERED: KETOROLAC 30 MG/ML VIAL IVP ONE (13:00)
--- NOTE | 2022-02-23 14:25 | ED Chest Pain ---
General Chief Complaint: Chest Pain Stated Complaint: CP,ABD,HTN,FEVER Nursing Triage Note: PT AMB TO RM 10 WITH COMPLAINT OF CHEST AND UPPER ABD PAIN, HTN, AND FEVER. PT STATED THAT IT START THIS MORNING AT 0530. HE STATED THAT HE TOOK A COUPLE BABY ASPIRINS AT 0600. Source: patient Exam Limitations: no limitations History of Present Illness Date Seen by Provider: Feb 23, 2022 Time Seen by Provider: 10:14 Initial Comments This 56-year-old gentleman presents to the emergency room with chest pain that started just this morning. But is most notable in the left lower chest and left upper quadrant. He feels hungry at the same time he feels discomfort. Onset was around 05:30. He does have some mild tenderness in the left upper quadrant. He has no other associated symptoms such as nausea, vomiting, shortness of b reath, cough, pain with inspiration, sweating, lightheadedness, etc. He reported a subjective fever at home but is afebrile at present. He noted his blood pressure was elevated this morning. He admits to being sometimes noncompliant with his medications as he forgets doses. He does have a significant history of coronary artery disease with [address] 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 Dr. Queen is his PCP. Allergies and Home Medications Allergies Coded Allergies: No Known Drug Allergies (Unverified , 09/23/19) Patient Home Medication List Home Medication List Reviewed: Yes Amlodipine Besylate (Amlodipine Besylate) 5 Mg Tablet, 5 MG PO HS, (Reported) Entered as Reported by: DINH NAIR on 09/15/16 1342 Ascorbate Calcium (Vitamin C) 500 Mg Tablet, 500-1,000 MG PO DAILY, (Reported) Entered as Reported by: NESTOR BRANNON on 10/08/17 152 Aspirin (Aspirin EC) 81 Mg Tablet.dr, 81 MG PO DAILY, (Reported) Entered as Reported by: DINH NAIR on 09/15/16 1342 Carvedilol (Carvedilol) 25 Mg Tablet, 25 MG PO BID, (Reported) Entered as Reported by: NESTOR BRANNON on 10/08/17 1523 Citalopram Hydrobromide (Citalopram HBr) 40 Mg Tablet, 40 MG PO DAILY, (Reported) Entered as Reported by: NESTOR BRANNON on 10/08/17 1523 Lisinopril (Lisinopril) 20 Mg Tablet, 20 MG PO DAILY, (Reported) Entered as Reported by: DINH NAIR on 09/15/16 1342 Melatonin/Pyridoxine (Melatonin 5 mg Tablet) 1 Each Tablet, 5 MG PO HS PRN for SLEEP, (Reported) Entered as Reported by: DINH NAIR on 09/15/16 1342 Nitroglycerin (Nitroglycerin) 0.4 Mg Tab.subl, 0.4 MG SL UD PRN for CHEST PAIN, (Reported) Entered as Reported by: NESTOR BRANNON on 10/08/17 1454 [place] 3 Polyunsat Fatty Acids (Fish Oil 1,000 mg Capsule) 1,000 Mg Cap, 2,000 MG PO DAILY, (Reported) Entered as Reported by: PILY LONDON on 09/23/19 1044 Rosuvastatin Calcium (Crestor) 40 Mg Tablet, 40 MG PO DAILY, (Reported) Entered as Reported by: PILY LONDON on 09/23/19 1044 Review of Systems Review of Systems Constitutional: no symptoms reported EENTM: No Symptoms Reported Respiratory: See HPI Cardiovascular: See HPI Gastrointestinal: See HPI Genitourinary: No Symptoms Reported Musculoskeletal: no symptoms reported Skin: no symptoms reported Psychiatric/Neurological: No Symptoms Reported Endocrine: No Symptoms Reported Hematologic/Lymphatic: No Symptoms Reported Past Xsnujtt-Kbnezn-Pxesbt Hx Patient Social History Tobacco Use?: No Smoking Status: Unknown if Ever Smoked Substance use?: Yes Substance type: Marijuana Substance frequency: Once in a while Alcohol Use?: Yes Alcohol type: Other Alcohol Frequency: Once in a while Immunizations Up To Date Tetanus Booster (TDap): Unknown Seasonal Allergies Seasonal Allergies: No Past Medical History Surgeries: Yes (HERNIA;MICRODISCECTOMY;CARDIAC STENTS X7;SHOULDER;COLONOSCOPY/POLYP 09/2019) Abdominal, Cardiac, Coronary Stent, Orthopedic Respiratory: Yes (asthma as child, no longer) Asthma Currently Using CPAP: No Currently Using BIPAP: No Cardiac: Yes (x7 HEART STENTs) Coronary Artery Disease, Heart Attack, High Cholesterol, Hypertension Neurological: No Reproductive Disorders: No Sexually Transmitted Disease: No HIV/AIDS: No Genitourinary: Yes Kidney Stones Gastrointestinal: Yes (COLONOSCOPY / POLYPECTOMY X 2 --09/2019) Abdominal Hernia Musculoskeletal: Yes Chronic Back Pain Endocrine: No HEENT: No (READING GLASSES) Loss of Vision: Denies Hearing Impairment: Denies Cancer: No Psychosocial: Yes Depression Integumentary: No Blood Disorders: No Adverse Reaction/Blood Tranf: No (N/A) Family Medical History Alcoholism 03 FATHER Cancer 03 FATHER (lung ) Family history: Cardiovascular disease 03 FATHER (triple bypass) 03 MOTHER (multiple stents) Family history: Diabetes mellitus 03 MOTHER History of - disorder 03 MOTHER (macular degeneration) Physical Exam Vital Signs Vital Signs - First Documented 02/23/22 02/23/22 10:44 14:28 Temp 36.7 Pulse 61 Resp 14 B/P (MAP) 159/106 (123) Pulse Ox 96 O2 Delivery Room Air Capillary Refill : Height, Weight, BMI Height: 6'2.00" Weight: 210lbs. 0.0oz. 95.559022sz; 27.00 BMI Method:Stated General Appearance: No Apparent Distress HEENT: PERRL/EOMI, Normal ENT Inspection Neck: Normal Inspection; No JVD Respiratory: Chest Non Tender, Lungs Clear, Normal Breath Sounds, No Accessory Muscle Use, No Respiratory Distress Cardiovascular: Regular Rate, Rhythm, No Edema, No Murmur Gastrointestinal: Normal Bowel Sounds, Soft; No Distended; Tenderness (Minimal in the left upper quadrant) Extremity: Normal Inspection, Non Tender, No Calf Tenderness, No Pedal Edema Neurologic/Psychiatric: Alert, Oriented x3, No Motor/Sensory Deficits, Normal Mood/Affect Skin: Normal Color, Warm/Dry Progress/Results/Core Measures Results/Orders Lab Results Laboratory Tests Test 02/23/22 10:17 02/23/22 10:25 02/23/22 11:04 02/23/22 12:30 Range/Units Influenza Type A (RT-PCR) Not Detected Not Detecte Influenza Type B (RT-PCR) Not Detected Not Detecte SARS-CoV-2 RNA (RT-PCR) Not Detected Not Detecte White Blood Count 8.2 4.3-11.0 10^3/uL Red Blood Count 4.78 4.30-5.52 10^6/uL Hemoglobin 15.7 13.3-17.7 g/dL Hematocrit 45 40-54 % Mean Corpuscular Volume 93 80-99 fL Mean Corpuscular Hemoglobin 33 25-34 pg Mean Corpuscular Hemoglobin Concent 35 32-36 g/dL Red Cell Distribution Width 11.9 10.0-14.5 % Platelet Count 219 130-400 10^3/uL Mean Platelet Volume 9.0 9.0-12.2 fL Immature Granulocyte % (Auto) 0 % Neutrophils (%) (Auto) 73 42-75 % Lymphocytes (%) (Auto) 16 12-44 % Monocytes (%) (Auto) 9 0-12 % Eosinophils (%) (Auto) 1 0-10 % Basophils (%) (Auto) 1 0-10 % Neutrophils # (Auto) 6.0 1.8-7.8 10^3/uL Lymphocytes # (Auto) 1.3 1.0-4.0 10^3/uL Monocytes # (Auto) 0.7 0.0-1.0 10^3/uL Eosinophils # (Auto) 0.1 0.0-0.3 10^3/uL Basophils # (Auto) 0.1 0.0-0.1 10^3/uL Immature Granulocyte # (Auto) 0.0 0.0-0.1 10^3/uL Prothrombin Time 13.1 12.2-14.7 SEC INR Comment 1.0 0.8-1.4 Activated Partial Thromboplast Time 25 24-35 SEC Sodium Level 139 135-145 MMOL/L Potassium Level 4.4 3.6-5.0 MMOL/L Chloride Level 104 98-107 MMOL/L Carbon Dioxide Level 25 21-32 MMOL/L Anion Gap 10 5-14 MMOL/L Blood Urea Nitrogen 15 7-18 MG/DL Creatinine 0.90 0.60-1.30 MG/DL Estimat Glomerular Filtration Rate 99 BUN/Creatinine Ratio 17 Glucose Level 124 H 70-105 MG/DL Calcium Level 9.2 8.5-10.1 MG/DL Corrected Calcium 9.0 8.5-10.1 MG/DL Magnesium Level 2.0 1.6-2.4 MG/DL Total Bilirubin 1.2 H 0.1-1.0 MG/DL Aspartate Amino Transf (AST/SGOT) 14 5-34 U/L Alanine Aminotransferase (ALT/SGPT) 17 0-55 U/L Alkaline Phosphatase 68 40-136 U/L Myoglobin 60.0 10.0-92.0 NG/ML Troponin I < 0.028 < 0.028 <0.028 NG/ML C-Reactive Protein High Sensitivity 0.12 0.00-0.50 MG/DL B-Type Natriuretic Peptide 34.7 <100.0 PG/ML Total Protein 6.7 6.4-8.2 GM/DL Albumin 4.3 3.2-4.5 GM/DL Lipase 36 8-78 U/L Urine Color YELLOW Urine Clarity CLEAR Urine pH 6.0 5-9 Urine Specific [place] 1.020 1.016-1.022 Urine Protein NEGATIVE NEGATIVE Urine Glucose (UA) NEGATIVE NEGATIVE Urine Ketones NEGATIVE NEGATIVE Urine Nitrite NEGATIVE NEGATIVE Urine Bilirubin NEGATIVE NEGATIVE Urine Urobilinogen 0.2 < = 1.0 MG/DL Urine Leukocyte Esterase NEGATIVE NEGATIVE Urine RBC (Auto) NEGATIVE NEGATIVE Urine RBC NONE /HPF Urine WBC RARE /HPF Urine Crystals NONE /LPF Urine Bacteria NEGATIVE /HPF Urine Casts NONE /LPF Urine Mucus SMALL H /LPF Urine Culture Indicated NO My Orders Orders - KYLEE MARCANO MD Ekg Tracing (02/23/22 10:06) Covid 19 Inhouse Test (02/23/22 10:14) Influenza A And B By Pcr (02/23/22 10:14) Cbc With Automated Diff (02/23/22 10:16) Magnesium (02/23/22 10:16) Chest 1 View, Ap/Pa Only (02/23/22 10:16) Comprehensive Metabolic Panel (02/23/22 10:16) Myoglobin Serum (02/23/22 10:16) Protime With Inr (02/23/22 10:16) Partial Thromboplastin Time (02/23/22 10:16) O2 (02/23/22 10:16) Monitor-Rhythm Ecg Trace Only (02/23/22 10:16) Ed Iv/Invasive Line Start (02/23/22 10:16) Troponin I [place] (02/23/22 10:16) Bnp [place] (02/23/22 10:16) Hs C Reactive Protein (02/23/22 10:16) Ekg Tracing (02/23/22 10:19) Lipase (02/23/22 11:02) Ua Culture If Indicated (02/23/22 11:02) Troponin I [place] (02/23/22 12:25) Ondansetron Injection (Zofran Injectio (02/23/22 11:15) Lidocaine 2% Viscous 15 Ml (Xylocaine Vi (02/23/22 11:15) Antacid Suspension (Mylanta Suspension (02/23/22 11:15) Ketorolac Injection (Toradol Injection) (02/23/22 13:00) Medications Given in ED Vital Signs/I&O 02/23/22 02/23/22 10:44 14:28 Temp 36.7 36.7 Pulse 61 58 Resp 14 18 B/P (MAP) 159/106 (123) 134/106 Pulse Ox 96 96 O2 Delivery Room Air Blood Pressure Mean: 123 Progress Progress Note : Progress Note Initial cardiopulmonary work-up was unremarkable. Trial of GI cocktail was given. This did not resolve his discomfort. Given the tenderness in the left upper quadrant associated with his pain, as well as negative serial troponins, this does not appear to be cardiac in origin. Heart related pain was patient's biggest concern. He was offered further work-up for evaluation of abdominal pain. He prefers discharge at this time and conservative careful observation. He was given Toradol to further treat his pain. Return precautions and follow- up were discussed. EKG #1: EKG Time: 10:12 Rate: 56 Rhythm: Normal Sinus Comment Sinus rhythm with no ST elevation or depression. Borderline bradycardia. Subtle ST changes are nondiagnostic for STEMI. No significant abnormal intervals or axis deviation. EKG #2: EKG Time: 11:01 Rate: 56 Rhythm: Normal Sinus Comment Sinus rhythm with borderline bradycardia. No ST elevation or depression. No significant abnormal intervals or axis deviation. No dynamic changes from prior. Diagnostic Imaging Diagonstic Imaging: Xray Plain Films/CT/US/NM/MRI: chest Comments NAME: [facility] REC#: [id number] PT STATUS: DEP ER : 1965 PHYSICIAN: KYLEE MARCANO MD ADMIT DATE: 02/23/22/ER Signed Date of Exam:02/23/22 CHEST 1 VIEW, AP/PA ONLY INDICATION: Chest pain and abdominal pain as well as fever. TIME OF EXAM: 10:36 AM Comparison is made with prior chest from 07/22/2020. FINDINGS: The heart size is normal. The pulmonary vascularity is unremarkable. The lungs are clear. No infiltrate, effusion or pneumothorax is detected. IMPRESSION: No acute cardiopulmonary process is detected. Dictated by: Dictated on workstation # [id number] Dict: 02/23/22 1037 Trans: 02/23/22 1552 [id number] Interpreted by: CATARINA LORA MD Electronically signed by: CATARINA LORA MD 02/23/22 1552 Reviewed: Reviewed by Me Departure Impression Primary Impression: Atypical chest pain Additional Impressions: Left upper quadrant pain History of coronary artery disease Disposition: HOME, SELF-CARE Condition: Improved Departure-Patient Inst. Decision time for Depature: 14:23 Referrals: VERENICE QUEEN MD (PCP/Family) Primary Care Physician Patient Instructions: Abdominal Pain, Adult ED, Chest Pain Add. Discharge Instructions: Start with a noncarbonated clear liquid diet. Gradually advance your diet with small quantities of bland food as tolerated. You may use Tylenol (acetaminophen) up to 1000 mg every 6 hours as needed for pain. You may also try an antacid medication such as Pepcid (famotidine) 20 mg twice daily or omeprazole 20 mg daily. Follow-up with your primary care provider if symptoms have not resolved by next week. If you are experiencing pain that is truly in your chest or developing other symptoms such as shortness of breath, fever, lightheadedness, vomiting, etc., please return to the emergency room. All discharge instructions reviewed with patient and/or family. Voiced understanding. Copy Copies To 1: JORDAN FERMIN MD Copies To 2: VERENICE QUEEN MD, JOSHUA T MD Feb 23, 2022 14:25
[2022-02-23 14:28] VITALS: BP 134/106
== END 2022-02-23 14:28 | disposition home or self-care (01) ==
LOC: EDUNIT# 10:03 → ER 10:05
DX: R07.89 Other chest pain (principal); R10.12 Left upper quadrant pain; I25.10 Atherosclerotic heart disease of native coronary artery without angina pectoris; R00.1 Bradycardia, unspecified; Z20.822 Contact with and (suspected) exposure to COVID-19
CPT/HCPCS: 36415; 71045; 80053; 81000; 83690; 83735; 83874; 83880; 84484; 85025; 85610; 85730; 86141; 87636; 93005; 93041

== ENCOUNTER → 2022-02-28 | Outpatient (CLI) | payer OTHER | LOC: CARD 08:38 | PROVIDERS: ATTEND Internal Medicine Cardiovascular Disease | DX: I08.0 Rheumatic disorders of both mitral and aortic valves (principal); I10 Essential (primary) hypertension; I25.10 Atherosclerotic heart disease of native coronary artery without angina pectoris | CPT/HCPCS: 93306 ==

== ENCOUNTER → 2022-03-30 | Outpatient (CLI) | payer SELFPAY ==
[2022-03-30 07:56] LABS: POTASSIUM 3.9 MMOL/L (3.6-5.0)
[2022-03-30 07:57] LABS: ALBUMIN 4.2 GM/DL (3.2-4.5)
[2022-03-30 07:58] LABS: CALCIUM 9.1 MG/DL (8.5-10.1)
[2022-03-30 07:59] LABS: TOTAL PROTEIN 6.2 GM/DL (6.4-8.2)
[2022-03-30 08:01] LABS: BILIRUBIN,TOTAL 0.4 MG/DL (0.1-1.0)
[2022-03-30 08:03] LABS: CREATININE SERUM 0.94 MG/DL (0.60-1.30)
== END ==
LOC: LAB 07:03
PROVIDERS: ATTEND Internal Medicine Cardiovascular Disease
DX: I10 Essential (primary) hypertension (principal); R09.89 Other specified symptoms and signs involving the circulatory and respiratory systems; I25.10 Atherosclerotic heart disease of native coronary artery without angina pectoris; Z82.49 Family history of ischemic heart disease and other diseases of the circulatory system; E78.2 Mixed hyperlipidemia; I65.23 Occlusion and stenosis of bilateral carotid arteries
CPT/HCPCS: 36415; 80053; 80061

== ENCOUNTER → 2022-04-10 | Outpatient (CLI) | payer OTHER ==
[~2022-04-10] MED LIST changes: +CATHETER FLUSH 10 ML SYR IVP PRN
[2022-04-10 08:51] VITALS: BP 139/91
--- NOTE | 2022-04-10 11:04 | Cardiology Stress Test Report ---
Stress Test Report Date of Procedure/Referring: Date of Procedure: Apr 10, 2022 PCP Verenice Queen MD Admitting Physician Admitting Physician: Attending Physician: Shana Fermin MD Indications: CAD Baseline Heart Rate: 61 Baseline Blood Pressure: Blood Pressure Systolic: 139 Blood Pressure Diastolic: 91 Vital Signs Date Time Temp Pulse Resp B/P (MAP) Pulse Ox O2 Delivery O2 Flow Rate FiO2 04/10/22 08:51 59 139/91 (107) Baseline Vital Signs Vital Signs Date Time Temp Pulse Resp B/P (MAP) Pulse Ox O2 Delivery O2 Flow Rate FiO2 04/10/22 08:51 59 139/91 (107) Baseline EKG: Baseline EKG: NSR Summary: After explaining the procedure and details to the patient, he signed the co nsent and was brought to the stress nuclear laboratory. Patient exercised on standard Oscar protocol, EKG, heart rate and blood pressure were monitored continuously, resting and stress doses of radio tracer were injected, imaging was acquired and reviewed in the short axis, horizontal long axis and vertical long axis views Patient was able to exercise for a total of 12 minutes on Oscar protocol, METs 12.1 Maximum heart rate 131 Maximum blood pressure 217/110 Stress EKG, Minimal nondiagnostic changes Recovery EKG, Return to baseline TID: 0.93 SSS: 6 SDS: 1 EF: 55 Conclusion: 1. Good exercise tolerance for a total of 12 minutes on Oscar protocol, 12.1 METS achieving 81% of maximal expected heart rat 2. Appropriate heart rate response to exercise with severe hypertensive response to exercise with peak blood pressure 217/110 return to baseline during recovery 3. Nondiagnostic EKG changes with exercise return to baseline during recovery 4. Fixed defect with diaphragmatic attenuation involving the basal to mid inferoseptum with no significant ischemia 5. Normal left ventricular size with normal contractility, ejection fraction 55% Copy Copies To 1: VERENICE QUEEN MD, BASHAR J MD Apr 10, 2022 11:04
== END ==
LOC: CARD 08:15
PROVIDERS: ATTEND Internal Medicine Cardiovascular Disease
DX: I25.10 Atherosclerotic heart disease of native coronary artery without angina pectoris (principal); I10 Essential (primary) hypertension
CPT/HCPCS: 78452; 93017; A9502

== ENCOUNTER 2022-06-10 20:51 | Observation (INO) | payer OTHER ==
[~2022-06-10] VITALS: Ht 188 cm; Wt 90.8 kg
[~2022-06-10 20:51] MED LIST changes: -CATHETER FLUSH 10 ML SYR IVP PRN
[2022-06-10] MEDS ORDERED: ASPIRIN 81 MG CHEW (CHILDREN'S ASA) PO ONE (21:00)
[2022-06-10] MEDS ORDERED: NITROGLYCERIN 0.4 MG SL TABS BTL 25'S SL PRN (21:00)
[2022-06-10 21:06] LABS: BASOPHILS # (AUTO) 0.1 10^3/uL (0.0-0.1); BASOPHILS % (AUTO) 1 % (0-10); EOSINOPHILS # (AUTO) 0.2 10^3/uL (0.0-0.3); EOSINOPHILS % (AUTO) 2 % (0-10); HEMATOCRIT 43 % (40-54); HEMOGLOBIN 15.3 g/dL (13.3-17.7); LYMPHOCYTES # (AUTO) 2.2 10^3/uL (1.0-4.0); LYMPHOCYTES % (AUTO) 26 % (12-44); MEAN CORPUSCULAR HEMOGLOBIN 33 pg (25-34); MEAN CORPUSCULAR HGB CONC 36 g/dL (32-36); MEAN CORPUSCULAR VOLUME 93 fL (80-99); MEAN PLATELET VOLUME 8.8 fL (9.0-12.2); MONOCYTES # (AUTO) 0.8 10^3/uL (0.0-1.0); MONOCYTES % (AUTO) 9 % (0-12); NEUTROPHILS # (AUTO) 5.2 10^3/uL (1.8-7.8); NEUTROPHILS % (AUTO) 62 % (42-75); PLATELET COUNT 206 10^3/uL (130-400); WHITE BLOOD COUNT 8.4 10^3/uL (4.3-11.0)
--- NOTE | 2022-06-10 21:20 | Diagnostic Imaging Report ---
EXAMINATION: Chest 1 view. HISTORY: Chest pain. COMPARISON: 02/23/2022. FINDINGS: The lungs are clear without edema or pneumonia. No pleural effusion or pneumothorax. Heart size is normal. IMPRESSION: Clear lungs. Dictated by: Dictated on workstation # [id number]
[2022-06-10 21:26] LABS: ALBUMIN 4.1 GM/DL (3.2-4.5); PROTHROMBIN TIME PATIENT 13.5 SEC (12.2-14.7)
[2022-06-10 21:27] LABS: POTASSIUM 3.8 MMOL/L (3.6-5.0)
[2022-06-10 21:28] LABS: CALCIUM 8.9 MG/DL (8.5-10.1)
[2022-06-10 21:29] LABS: TOTAL PROTEIN 6.4 GM/DL (6.4-8.2)
[2022-06-10 21:31] LABS: BILIRUBIN,TOTAL 0.3 MG/DL (0.1-1.0)
[2022-06-10 21:33] LABS: CREATININE SERUM 1.1 MG/DL (0.60-1.30)
[2022-06-10 21:35] LABS: MAGNESIUM 2.1 MG/DL (1.6-2.4)
[2022-06-10 21:43] LABS: CREATINE KINASE MB 4.4 NG/ML (<6.6)
--- NOTE | 2022-06-10 21:44 | ED Chest Pain ---
General Chief Complaint: Chest Pain Stated Complaint: CHEST PAIN Nursing Triage Note: PT ARRIVAL TO ER WITH COMPLAINT OF CHEST PAIN X4 HOURS. 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 PAIN IS STABBING PAIN AT 7/10. PT DID BECOME NAUSEATED AND SOA WHEN PAIN STARTED. Source: patient History of Present Illness Date Seen by Provider: Jun 10, 2022 Time Seen by Provider: 20:54 Initial Comments PT ARRIVES VIA POV FROM HOME C/O CHEST PAIN FOR THE LAST "COUPLE OF HOURS"--REPORTED TO RN THAT IT STARTED 4 HOURS AGO PAIN IS ALL ACROSS MID AND LOWER CHEST, AND ALSO IN EPIGASTRIC AND UPPER ABDOMINAL AREAS RATES PAIN 7/10 NOTHING WORSENS OR IMPROVES PAIN --STATES HE ATE, THEN LAID DOWN--NO IMPROVEMENT IN PAIN NO RADIATION OF PAIN + SHORTNESS OF BREATH +NAUSEA, NO VOMITING NO SWEATS NO SWELLING IN LEGS/FEET OR PAIN IN CALVES PT HAS BEEN WORKING IN HIS SHOP ALL DAY WITHOUT ANY PROBLEMS TOOK 2 ASPIRIN PRIOR TO ARRIVAL PT HAS HISTORY OF CAD WITH DC AND STENTS X 7 AND ANGIOPLAST[address] X [address] NAGY, AND HAD A STRESS TEST A COUPLE OF MONTHS AGO--ESSENTIALLY NORMAL, NO ISCHEMIA PT DOES NOT HAVE NTG AT HOME. PT ADMITS THAT HE FREQUENTLY FORGETS TO TAKE HIS MEDICATION, BUT TOOK THEM TODAY PRESCRIBED. PCP: DR. QUEEN--BUT STATES HE NEVER GOES, HAS MISSED APPOINTMENTS. STATES HE "DOESN'T NEED TO GO TO ANYONE EXCEPT THE EARTH SCIENCE TEACHER" EARTH SCIENCE TEACHER: DR. NAGY PT WITH HISTORY OF NON-COMPLIANCE IN ALL ASPECTS OF CARE. Allergies and Home Medications Allergies Coded Allergies: No Known Drug Allergies (Unverified , 09/23/19) Patient Home Medication List Amlodipine Besylate (Amlodipine Besylate) 5 Mg Tablet, 5 MG PO HS, (Reported) Entered as Reported by: DINH NAIR on 09/15/16 1342 Ascorbate Calcium (Vitamin C) 500 Mg Tablet, 500-1,000 MG PO DAILY, (Reported) Entered as Reported by: NESTOR BRANNON on 10/08/17 1522 Aspirin (Aspirin EC) 81 Mg Tablet.dr, 81 MG PO DAILY, (Reported) Entered as Reported by: DINH NAIR on 09/15/16 1342 Carvedilol (Carvedilol) 25 Mg Tablet, 25 MG PO BID, (Reported) Entered as Reported by: NESTOR BRANNON on 10/08/17 1523 Citalopram Hydrobromide (Citalopram HBr) 40 Mg Tablet, 40 MG PO DAILY, (Reported) Entered as Reported by: NESTOR BRANNON on 10/08/17 1523 Lisinopril (Lisinopril) 20 Mg Tablet, 20 MG PO DAILY, (Reported) Entered as Reported by: DINH NAIR on 09/15/16 1342 Melatonin/Pyridoxine (Melatonin 5 mg Tablet) 1 Each Tablet, 5 MG PO HS PRN for SLEEP, (Reported) Entered as Reported by: DINH NAIR on 09/15/16 1342 Nitroglycerin (Nitroglycerin) 0.4 Mg Tab.subl, 0.4 MG SL UD PRN for CHEST PAIN, (Reported) Entered as Reported by: NESTOR BRANNON on 10/08/17 1454 [place] 3 Polyunsat Fatty Acids (Fish Oil 1,000 mg Capsule) 1,000 Mg Cap, 2,000 MG PO DAILY, (Reported) Entered as Reported by: PILY LONDON on 09/23/19 1044 Rosuvastatin Calcium (Crestor) 40 Mg Tablet, 40 MG PO DAILY, (Reported) Entered as Reported by: PILY LONDON on 09/23/19 1044 Review of Systems Review of Systems Constitutional: no symptoms reported Respiratory: See HPI, Shortness of Air Cardiovascular: See HPI, Chest Pain; Denies Edema, Denies Irregular Heart Rate, Denies Lightheadedness, Denies Palpitations, Denies Syncope Gastrointestinal: See HPI, Abdominal Pain; Denies Diarrhea; Nausea; Denies Vomiting Genitourinary: No Symptoms Reported Musculoskeletal: no symptoms reported; No back pain Skin: no symptoms reported Psychiatric/Neurological: No Symptoms Reported Endocrine: No Symptoms Reported Hematologic/Lymphatic: No Symptoms Reported Past Wnyvpgq-Gvbewy-Hielkq Hx Patient Social History Tobacco Use?: Yes Tobacco type used: Cigarettes Smoking Status: Former Smoker Use of E-Cig and/or Vaping dev: No Substance use?: Yes Substance type: Marijuana Alcohol Use?: Yes Alcohol Frequency: Once in a while Pt feels they are or have been: No Immunizations Up To Date Tetanus Booster (TDap): Unknown Influenza Vaccine Up-to-Date: No; Not Current Seasonal Allergies Seasonal Allergies: No Past Medical History Surgeries: Yes (HERNIA;MICRODISCECTOMY;CARDIAC STENTS X7;SHOULDER;COLONOSCOPY/POLYP 09/2019) Abdominal, Cardiac, Coronary Stent, Orthopedic Respiratory: Yes (asthma as child, no longer) Asthma Currently Using CPAP: No Currently Using BIPAP: No Cardiac: Yes (CARDIAC CATHS WITH STENTS X 7 AND ANGIOPLASTY X 2;DC X 1) Coronary Artery Disease, Heart Attack, High Cholesterol, Hypertension Neurological: No Reproductive Disorders: No Sexually Transmitted Disease: No HIV/AIDS: No Genitourinary: Yes Kidney Stones Gastrointestinal: Yes (COLONOSCOPY / POLYPECTOMY X 2 --09/2019;UMBILICAL HERNIA ) Abdominal Hernia Musculoskeletal: Yes (BACK SURGERY WITH MICRODISCECTOMY) Chronic Back Pain Endocrine: No HEENT: No (READING GLASSES) Loss of Vision: Denies Hearing Impairment: Denies Cancer: No Psychosocial: Yes Depression Integumentary: No Blood Disorders: No Adverse Reaction/Blood Tranf: No (N/A) Family Medical History Alcoholism 03 FATHER Cancer 03 FATHER (lung ) Family history: Cardiovascular disease 03 FATHER (triple bypass) 03 MOTHER (multiple stents) Family history: Diabetes mellitus 03 MOTHER History of - disorder 03 MOTHER (macular degeneration) STRESS TEST 04/10/[address]AGY: Conclusion: 1. Good exercise tolerance for a total of 12 minutes on Oscar protocol, 12.1 METS achieving 81% of maximal expected heart rat 2. Appropriate heart rate response to exercise with severe hypertensive response to exercise with peak blood pressure 217/110 return to baseline during recovery 3. Nondiagnostic EKG changes with exercise return to baseline during recovery 4. Fixed defect with diaphragmatic attenuation involving the basal to mid inferoseptum with no significant ischemia 5. Normal left ventricular size with normal contractility, ejection fraction 55% Physical Exam Vital Signs Vital Signs - First Documented 06/10/22 20:51 Temp 36.4 Pulse 71 Resp 20 B/P (MAP) 129/96 (107) Pulse Ox 94 O2 Delivery Room Air Capillary Refill : Less Than 3 Seconds Height, Weight, BMI Height: 6'2.00" Weight: 210lbs. 0.0oz. [id number]; 27.00 BMI Method:Stated General Appearance: No Apparent Distress, WD/WN, Other (TALKS NON-STOP. DOES NOT APPEAR TO BE ILL OR IN ANY DISCOMFORT OR DISTRESS) Neck: Normal Inspection Respiratory: Chest Non Tender, Normal Breath Sounds, No Accessory Muscle Use, No Respiratory Distress Cardiovascular: Regular Rate, Rhythm, No Edema, No JVD, No Murmur, Normal Peripheral Pulses Gastrointestinal: Normal Bowel Sounds, No Organomegaly, No Pulsatile Mass, Soft, Tenderness (MILD EPIGASTRIC TENDERNESS) Extremity: Normal Capillary Refill, Normal Inspection, Normal Range of Motion, Non Tender, No Calf Tenderness, No Pedal Edema Neurologic/Psychiatric: Alert, Oriented x3, No Motor/Sensory Deficits, Normal Mood/Affect, 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 Norm as Tested Skin: Normal Color, Warm/Dry Progress/Results/Core Measures Results/Orders Lab Results Laboratory Tests Test 06/10/22 20:58 Range/Units White Blood Count 8.4 4.3-11.0 10^3/uL Red Blood Count 4.64 4.30-5.52 10^6/uL Hemoglobin 15.3 13.3-17.7 g/dL Hematocrit 43 40-54 % Mean Corpuscular Volume 93 80-99 fL Mean Corpuscular Hemoglobin 33 25-34 pg Mean Corpuscular Hemoglobin Concent 36 32-36 g/dL Red Cell Distribution Width 11.9 10.0-14.5 % Platelet Count 206 130-400 10^3/uL Mean Platelet Volume 8.8 L 9.0-12.2 fL Immature Granulocyte % (Auto) 0 % Neutrophils (%) (Auto) 62 42-75 % Lymphocytes (%) (Auto) 26 12-44 % Monocytes (%) (Auto) 9 0-12 % Eosinophils (%) (Auto) 2 0-10 % Basophils (%) (Auto) 1 0-10 % Neutrophils # (Auto) 5.2 1.8-7.8 10^3/uL Lymphocytes # (Auto) 2.2 1.0-4.0 10^3/uL Monocytes # (Auto) 0.8 0.0-1.0 10^3/uL Eosinophils # (Auto) 0.2 0.0-0.3 10^3/uL Basophils # (Auto) 0.1 0.0-0.1 10^3/uL Immature Granulocyte # (Auto) 0.0 0.0-0.1 10^3/uL Prothrombin Time 13.5 12.2-14.7 SEC INR Comment 1.0 0.8-1.4 Activated Partial Thromboplast Time 27 24-35 SEC D-Dimer 1.40 H 0.00-0.49 UG/ML Sodium Level 140 135-145 MMOL/L Potassium Level 3.8 3.6-5.0 MMOL/L Chloride Level 103 98-107 MMOL/L Carbon Dioxide Level 26 21-32 MMOL/L Anion Gap 11 5-14 MMOL/L Blood Urea Nitrogen 16 7-18 MG/DL Creatinine 1.10 0.60-1.30 MG/DL Estimat Glomerular Filtration Rate 77 BUN/Creatinine Ratio 15 Glucose Level 142 H 70-105 MG/DL Calcium Level 8.9 8.5-10.1 MG/DL Corrected Calcium 8.8 8.5-10.1 MG/DL Magnesium Level 2.1 1.6-2.4 MG/DL Total Bilirubin 0.3 0.1-1.0 MG/DL Aspartate Amino Transf (AST/SGOT) 18 5-34 U/L Alanine Aminotransferase (ALT/SGPT) 13 0-55 U/L Alkaline Phosphatase 70 40-136 U/L Total Creatine Kinase 317 H 30-200 U/L Creatine Kinase MB 4.4 <6.6 NG/ML Myoglobin 200.9 H 10.0-92.0 NG/ML Troponin I < 0.028 <0.028 NG/ML B-Type Natriuretic Peptide 19.8 <100.0 PG/ML Total Protein 6.4 6.4-8.2 GM/DL Albumin 4.1 3.2-4.5 GM/DL Amylase Level 43 25-125 U/L Lipase 37 8-78 U/L My Orders Orders - ENMA RUBIN DO Ekg Tracing (06/10/22 20:54) Cbc With Automated Diff (06/10/22 20:54) Magnesium (06/10/22 20:54) Chest 1 View, Ap/Pa Only (06/10/22 20:54) Ekg Tracing (06/10/22 20:54) Comprehensive Metabolic Panel (06/10/22 20:54) Myoglobin Serum (06/10/22 20:54) Protime With Inr (06/10/22 20:54) Partial Thromboplastin Time (06/10/22 20:54) O2 (06/10/22 20:54) Monitor-Rhythm Ecg Trace Only (06/10/22 20:54) Ed Iv/Invasive Line Start (06/10/22 20:54) Creatine Kinase (06/10/22 20:54) Creatine Kinase Mb (06/10/22 20:54) Lipase (06/10/22 20:54) Amylase (06/10/22 20:54) Bnp [place] (06/10/22 20:54) Fibrin Degradation Products (06/10/22 20:54) Troponin I [place] (06/10/22 20:54) Nitroglycerin 0.4 Mg Btl 25's (Nitrostat (06/10/22 21:00) Aspirin Chewable Tablet (Baby Aspirin Ch (06/10/22 21:00) [facility] [place] Chest/Noang Abd-Pelv W (06/10/22 21:44) Medications Given in ED Current Medications Medications Dose Ordered Sig/Jorge Route Start Time Stop Time Status Last Admin Dose Admin Aspirin 324 mg ONCE ONCE PO 06/10/22 21:00 06/10/22 21:01 DC 06/10/22 21:10 324 MG Nitroglycerin 0.4 mg UD PRN SL 06/10/22 21:00 06/10/22 21:10 0.4 MG Vital Signs/I&O 06/10/22 20:51 Temp 36.4 Pulse 71 Resp 20 B/P (MAP) 129/96 (107) Pulse Ox 94 O2 Delivery Room Air Blood Pressure Mean: 107 Progress Progress Note : Progress Note GIVEN: -ASPIRIN -NTG X 1 WITH COMPLETE RELIEF OF PAIN - Initial ECG Impression Date: Jun 10, 2022 Initial ECG Impression Time: 20:58 Initial ECG Rate: 72 Initial ECG Rhythm: Normal Sinus (IVCD) Diagnostic Imaging Comments CXR--PER RADIOLOGIST REPORT AT 2144 FINDINGS: The lungs are clear without edema or pneumonia. No pleural effusion or pneumothorax. Heart size is normal. IMPRESSION: Clear lungs. Reviewed: Reviewed by Me Departure Departure-Patient Inst. Referrals: VERENICE QUEEN MD (PCP/Family) Primary Care Physician ENMA RUBIN DO Jun 10, 2022 21:44
[2022-06-10] MEDS ORDERED: ENOXAPARIN 100 MG/1 ML (LOVENOX) SYR SC ONE (23:45)
[2022-06-11 00:30] VITALS: BP 118/83
[2022-06-11 00:42] VITALS: BP 118/83
[2022-06-11] MEDS ORDERED: NITROGLYCERIN 0.4 MG SL TABS BTL 25'S SL PRN ×2 (01:00→09:45)
[2022-06-11] MEDS ORDERED: CATHETER FLUSH 10 ML SYR IVP PRN (01:00)
[2022-06-11] MEDS ORDERED: ONDANSETRON 4 MG/2 ML (SDV) Z0FRAN IVP PRN (01:00)
[2022-06-11] MEDS ORDERED: morphine INJ 4 MG/ML 1 ML (VIAL/SYRINGE) IV PRN (01:00)
[2022-06-11 04:00] VITALS: BP 111/83
[2022-06-11] MEDS: CATHETER FLUSH 10 ML SYR IVP SCH ×2 (05:45→14:01)
[2022-06-11 06:15] LABS: TRIGLYCERIDES 395 MG/DL (<150); VLDL CHOLESTEROL 79 MG/DL (5-40)
[2022-06-11 06:20] LABS: CHOLESTEROL 149 MG/DL (< 200)
[2022-06-11 06:21] LABS: HDL CHOLESTEROL 32 MG/DL (40-60)
--- NOTE | 2022-06-11 07:30 | Diagnostic Imaging Report ---
EXAM: CT angiography chest, abdomen, and pelvis with intravenous contrast. DATE: June 10, 2022. INDICATION: 57-year-old male, chest and epigastric pain. COMPARISON: None. TECHNIQUE: Axial CT angiographic images of the chest, abdomen, and pelvis were obtained with intravenous contrast. Coronal and sagittal as well as 3-dimensional reformats were obtained and provided. All CT scans use one or more of the following dose optimizing techniques: automated exposure control, MA and/or KvP adjustment based on patient size and exam type or iterative reconstruction. FINDINGS: There are upper lobe predominant findings of paraseptal emphysema. There is respiratory motion artifact present. There are mostly linear opacities in the dependent aspects of the right upper lobe and left lower lobe, most consistent with atelectasis. There is no identified pulmonary nodule or lung mass. There is no pneumothorax. There is no pleural effusion. There is no identified pulmonary embolus. The heart is not enlarged. There is no pericardial effusion. There are atherosclerotic calcifications. There is no identified abnormally enlarged mediastinal, hilar, or axillary lymph node which meets CT size criteria for adenopathy. The ascending thoracic aorta measures up to approximately 4.6 x 4.8 cm in diameter. The liver is unremarkable in size and contour. There is no identified liver lesion. The main, right, and left portal veins are patent. The gallbladder is unremarkable. There is no biliary ductal dilation. Unremarkable appearance of the pancreas. The spleen is normal in size. The adrenal glands are unremarkable. There is a 4 mm low-attenuation lesion in the right kidney on axial image 58 which is too small to characterize. The urinary collecting systems are not distended. There is no identified renal or ureteral stone. The urinary bladder is unremarkable. The intestinal tract is not distended. The appendix is very well seen on axial image 81 and adjacent sequential images. There is no evidence of acute appendicitis. There is no free intraperitoneal air. There is no drainable fluid collection. There is no free fluid in the abdomen or pelvis. There is an infrarenal abdominal aortic aneurysm which measures up to approximately 3.7 x 4.0 cm in diameter as specifically measured on axial image 400. There is no identified abnormally enlarged lymph node in the abdomen or pelvis which meets CT size criteria for adenopathy. There are multilevel degenerative changes of the spine. There is grade 1 anterolisthesis of L5 on S1 with bilateral L5 pars interarticularis defects. There is moderate to severe disc height loss at L5-S1. IMPRESSION: 1. No identified acute cardiopulmonary abnormality. 2. Infrarenal abdominal aortic aneurysm measuring up to 4 cm in diameter. 3. Ascending thoracic aortic aneurysm measuring up to 4.6 x 4.8 cm in diameter. Dictated by: Dictated on workstation # [id number]
[2022-06-11] MEDS ORDERED: ASPIRIN E.C. 81 MG (ECOTRIN) TAB PO SCH (09:00)
[2022-06-11] MEDS ORDERED: ENOXAPARIN 100 MG/1 ML (LOVENOX) SYR SC SCH (09:00)
[2022-06-11] MEDS ORDERED: NS IV 1000 ML 1,000 ML IV SCH ×2 (09:30→11:15)
--- NOTE | 2022-06-11 09:30 | Cardiology History & Physical ---
HPI-Cardiology Cardiology Consultation Date of Consultation 06/11/22 Date of Admission Time Seen by Provider: 09:25 Indication: Chest pain HPI 57 years old gentleman with extensive history of coronary artery disease, multiple interventions in the past, hypertension hyperlipidemia. Patient started to have chest pain described as dull and persistent in his retrosternal area. Took aspirin with minimal relief. Came into the emergency room and reported significant improvement after sublingual nitroglycerin. This morning he started to have chest pain again, reporting dull achiness in the retrosternal area. No shortness of breath. No palpitation PMH-Cardiology Immunizations Up To Date Tetanus Booster (DTap): Unknown Seasonal Allergies Seasonal Allergies: No Surgeries Yes (HERNIA;MICRODISCECTOMY;CARDIAC STENTS X7;SHOULDER;COLONOSCOPY/POLYP 09/2019) Orthopedic Respiratory Yes (asthma as child, no longer) Cardiovascular Yes (CARDIAC CATHS WITH STENTS X 7 AND ANGIOPLASTY X 2;[place] X 1) Angina, Heart Attack, High Cholesterol, Hypertension, Coronary Artery Disease Neurological No Reproductive System Hx Reproductive Disorders: No Sexually Transmitted Disease: No HIV/AIDS: No Genitourinary Yes Kidney Stones Gastrointestinal Yes (COLONOSCOPY / POLYPECTOMY X 2 --09/2019;UMBILICAL HERNIA ) Abdominal Hernia Musculoskeletal Yes (BACK SURGERY WITH MICRODISCECTOMY) Chronic Back Pain Endocrine No HEENT No (READING GLASSES) Loss of Vision: Denies Hearing Impairment: Denies Cancer No Psychosocial Yes Depression Integumentary No Blood Transfusions No Adverse Rxn to Transfusion: No (N/A) Social History Patient Social History Marrital Status: Employed/Student: employed Substance type: Marijuana Have you traveled recently?: No Alcohol Use?: No Family Hx Family History: Alcoholism 03 FATHER Cancer 03 FATHER (lung ) Family history: Cardiovascular disease 03 FATHER (triple bypass) 03 MOTHER (multiple stents) Family history: Diabetes mellitus 03 MOTHER History of - disorder 03 MOTHER (macular degeneration) ROS-Cardiology Review of Systems General: No Chills, No Night Sweats, No Fatigue, No Malaise, No Appetite HEENT: No Head Aches, No Visual Changes, No Eye Pain, No Ear Pain, No Dysphasia, No Sinus Congestion, No Post Nasal Drip, No Sore Throat Pulmonary: No Dyspnea, No Cough, No Pleuritic Chest Pain Cardiovascular: Chest Pain; No: Palpitations, Orthopnea, Paroxysmal Noc. Dyspnea, Edema, Lt Headedness Gastrointestinal: No: Nausea, Vomiting, Abdominal Pain, Diarrhea, Constipation, Melena, Hematochezia Genitourinary: No Dysuria, No Frequency, No Incontinence, No Hematuria, No Retention Musculoskeletal: No: neck pain, shoulder pain, arm pain, back pain, hand pain, leg pain, foot pain Neurological: No: Weakness, Numbness, Incoordination, Change in speech, Confusion, Seizures Home Medications & Allergies Allergies: Coded Allergies: No Known Drug Allergies (Unverified , 09/23/19) Home Medication List Reviewed: Yes Exam-Cardiology Vital Signs Vital Signs Date Time Temp Pulse Resp B/P (MAP) Pulse Ox O2 Delivery O2 Flow Rate FiO2 06/11/22 12:44 64 06/11/22 11:45 36.3 9 131/95 (107) 95 Room Air Exam General Appearance: Alert, Oriented X3, Cooperative, No Acute Distress HEENT: Atraumatic, PERRLA Respiratory: Clear to Auscultation, Normal Air Movement Cardiovascular: Regular Rate, Normal S1, Normal S2, No Murmurs Abdominal: Normal Bowel Sounds, Soft, No Tenderness, No Hepatosplenomegaly, No Masses Extremities: No Clubbing, No Cyanosis, No Edema, Normal Pulses, No Tenderness/Swelling Skin: No Rashes, No Breakdown, No Significant Lesion Neuro: Normal Gait, Normal Speech, Strength at 5/5 X4 Ext, Normal Tone, Sensation Intact Psych/Mental Status: Mental Status NL, Mood NL Results Labs Labs Laboratory Tests 06/10/22 20:58: White Blood Count 8.4, Red Blood Count 4.64, Hemoglobin 15.3, Hematocrit 43, Mean Corpuscular Volume 93, Mean Corpuscular Hemoglobin 33, Mean Corpuscular Hemoglobin Concent 36, Red Cell Distribution Width 11.9, Platelet Count 206, Mean Platelet Volume 8.8L, Immature Granulocyte % (Auto) 0, Neutrophils (%) (Auto) 62, Lymphocytes (%) (Auto) 26, Monocytes (%) (Auto) 9, Eosinophils (%) (Auto) 2, Basophils (%) (Auto) 1, Neutrophils # (Auto) 5.2, Lymphocytes # (Auto) 2.2, Monocytes # (Auto) 0.8, Eosinophils # (Auto) 0.2, Basophils # (Auto) 0.1, Immature Granulocyte # (Auto) 0.0, Prothrombin Time 13.5, INR Comment 1.0, Activated Partial Thromboplast Time 27, D-Dimer 1.40H, Sodium Level 140, Potassium Level 3.8, Chloride Level 103, Carbon Dioxide Level 26, Anion Gap 11, Blood Urea Nitrogen 16, Creatinine 1.10, Estimat Glomerular Filtration Rate 77, BUN/Creatinine Ratio 15, Glucose Level 142H, Calcium Level 8.9, Corrected Calcium 8.8, Magnesium Level 2.1, Total Bilirubin 0.3, Aspartate Amino Transf (AST/SGOT) 18, Alanine Aminotransferase (ALT/SGPT) 13, Alkaline Phosphatase 70, Total Creatine Kinase 317H, Creatine Kinase MB 4.4, Myoglobin 200.9H, Troponin I < 0.028, B-Type Natriuretic Peptide 19.8, Total Protein 6.4, Albumin 4.1, Amylase Level 43, Lipase 37 06/11/22 01:10: Troponin I < 0.028 06/11/22 05:12: Troponin I < 0.028, Triglycerides Level 395H, Cholesterol Level 149, LDL Cholesterol Direct 90, VLDL Cholesterol 79H, HDL Cholesterol 32L A/P-Cardiology Admission Diagnosis Chest pain Coronary artery disease Thoracic aortic aneurysm Hypertension Admission Status: Observation Assessment/Plan Chest pain resembling angina, responsive to sublingual nitroglycerin, extensive history of coronary artery disease Patient having recurrent episodes of chest pain, active chest pain today again. Discussed the management plan recommended cardiac catheterization possible PTCA in light of having thoracic aortic aneurysm and abdominal aortic aneurysm Coronary artery disease, [facility] in 2006 with PTCA and stent done using 4.020 mm Liberte stent to the right coronary artery. [facility] November 2013 which showed 80 percent midright coronary artery stenosis. deployment of 2 overlapping stents 4.012 mm Promus element and 4.08 mm Promus element in the midright coronary artery overlapping with the old stent with excellent results, no residual stenosis. The proximal portion of the right coronary artery has 40 percent stenosis. The circumflex artery has 50-60 percent proximal stenosis, FFR evaluation showed insignificant stenosis. 95 percent stenosis at the first diagonal artery that is fairly small artery not amendable to intervention. [facility] September 16, 2016 revealed ulcerated plaque in the proximal right coronary artery with 90 percent stenosis. Successful balloon angioplasty then deployment of of Xience Alpine 4 x 18 mm drug-eluting stent. Mild disease in old stent in the mid right coronary artery. [facility] October 15, 2017 showed severe LAD stenosis, underwent 3.023 mm stent with excellent results, still have an ostial diagonal artery stenosis, had balloon angioplasty using 2.015 mm with multiple inflation with recoil of the area. Had patent 2 stents in the right coronary artery with mild in-stent restenosis and mild disease in the circumflex artery. Stress test in August 2019 showing excellent exercise tolerance for 12 minutes 35 seconds on standard Oscar protocol, hypertensive response to exercise, minimal nondiagnostic EKG changes, no significant ischemia or infarction, EF 50 percent. Continue to monitor Thoracic and abdominal aortic aneurysm noted incidentally on CT scan on June 10 2022 Ascending thoracic aneurysm 4.6 x 4.8 cm Infrarenal abdominal aortic aneurysm measuring 4 cm Hypertension, currently blood pressure is better controlled. Continue to monitor Hyperlipidemia, intolerant to Crestor with diarrhea. Tolerating Lipitor 10 mg, complain of mild fatigue, I will evaluate lipid profile Mild bilateral carotid stenosis, last ultrasound done in January 2022. Continue to monitor Strong family history of heart disease, we will continue with aggressive monitoring. Mild depression. Controlled. Syncope, no further syncopal episodes. Workup was negative. Clinical Quality Measures AMI/AHF: ASA po Prior to arrival: Yes JORDAN NAGY MD Jun 11, 2022 09:30
--- NOTE | 2022-06-11 09:33 | Cardiac Procedure Note-CS/ASA ---
Pre-Procedure Note Pre-Op Procedure Note Date of Available H&P: Jun 11, 2022 Date H&P Reviewed: Jun 11, 2022 Time H&P Reviewed: 09:33 History & Physical: H&P Reviewed, Patient Examed, No changes noted Pre-Operative Diagnosis: CP Conscious Sedation Pre-Proced Time 09:33 ASA Score 3 For ASA 3 and 4: Consider anesthesia and medical clearance. Also, for patients with a history of failed moderate sedation consider anesthesia. Airway Lungs Heart ASA score ASA 1: a normal healthy patient ASA 2: a patient with a mild systemic disease (mid diabetes, controlled hypertension, obesity ASA 3: a patient with a severe systemic disease that limits activity (angina, COPD, prior Myocardial infarction) ASA 4: a patient with an incapacitating disease that is a constant threat to life (CHF, renal failure) ASA 5: a moribund patient not expected to survive 24 hrs. (ruptured aneurysm) ASA 6: a declared brain- patient whose organs are being harvested. For emergent operations, add the letter E after the classification Mallampati Classification Grade 3 Sedation Plan Analgesia, Amnesia, Plan communicated to team members, Discussed options with patient/fam, Discussed risks with patient/fam The patient is an appropriate candidate to undergo the planned procedure, sedation, and anesthesia. The patient immediately re-assessed prior to indication. JORDAN NAGY MD Jun 11, 2022 09:33
[2022-06-11] MEDS ORDERED: MIDAZOLAM 5 MG/5 ML (VERSED) VIAL ONE (10:08)
[2022-06-11] MEDS ORDERED: LIDOCAINE 1% INJ 20 ML VIAL ONE (10:08)
[2022-06-11] MEDS ORDERED: fentaNYL INJ 100 MCG/2 ML AMP ONE (10:08)
[2022-06-11] MEDS ORDERED: VERAPAMIL 5 MG/2 ML (CALAN) VIAL IV ONE (10:08)
[2022-06-11] MEDS ORDERED: NITRO DRIP 25000 MCG/D5W 0 ML IV ONE (10:09)
[2022-06-11] MEDS ORDERED: HEParin 1000 UNIT/ML (10ML VIAL) FOR BOLUS ONE (10:09)
[2022-06-11] MEDS ORDERED: NS IV 1000 ML 0 ML ONE (10:09)
[2022-06-11] MEDS ORDERED: HEParin (CATH LAB) 1,000 ML IV ONE (10:09)
[2022-06-11] MEDS ORDERED: PATIENT MAY USE OWN MEDS, ALL PO SCH (11:15)
[2022-06-11] MEDS ORDERED: ISOSORBIDE MONONITRATE 30 MG (IMDUR) TAB PO SCH (11:15)
[2022-06-11 11:45] VITALS: BP 131/95
--- NOTE | 2022-06-11 12:13 | Cardiac Cath Report ---
Cardiac Cath Report Physician (s)/Oyster Unloader (s) Physician JORDAN NAGY MD Pre-Procedure Diagnosis Pre-Procedure Diagnosis: CP Post-Procedure Note Procedure Start Date: Jun 11, 2022 Name of Procedure: Left heart catheterization Findings/Procedure Note PROCEDURE NOTE: 57-year-old gentleman with extensive history of coronary artery disease, multiple interventions in the past, admitted with chest pain. Part of the work-up was CT angiogram of the chest and abdomen which showed thoracic aortic aneurysm and abdominal aortic aneurysm. After explaining the procedure to the patient, all pros and cons were explained, all questions were answered. The patient signed the consent and then he was placed on the cardiac catheterization laboratory. Groin was prepped SL fashion local anesthesia was used. Sheath placed in the right femoral artery artery. Louann right and left catheter were used to access the coronary system. Louann right was prolapsed to the left ventricular cavity, pressure was measured, no left ventriculogram was done. I limited the amount of contrast usage due to the recent CT angiogram that required a large amount of contrast. At the end of the procedure the sheath was removed. Closure device was deployed FINDINGS: Hemodynamics LV 128/17, end-diastolic pressure of 17 Aorta 138/88 mean of 110 ANATOMY: Left Main is free of obstructive disease Left Anterior Descending has a patent stent in the mid LAD, the first diagonal branch has subtotal occlusion. He had a history of stenosis in that artery that appears to be progressed. Left Circumflex is moderate in size with aneurysm in the mid circumflex artery followed by 90% stenosis Right Coronary Artery has multiple stent in the proximal and mid, there is haziness in the stent in the mid right coronary artery, severe stenosis at the distal right coronary artery just above the bifurcation LV Gram was not done, pressure was measured Aorta evaluation done with CT angiogram which showed thoracic aortic aneurysm measuring 4.8 x 4.3 in the ascending aorta and infrarenal abdominal aortic aneurysm measuring 4 cm CONCLUSION: 1. Multivessel coronary artery disease involving the first diagonal artery, aneurysm and the mid circumflex artery followed by 90% stenosis and severe stenosis in the distal right coronary artery just above the bifurcation and in- stent restenosis in the mid right coronary artery 2. Normal left ventricular end-diastolic pressure 3. Known thoracic and abdominal aneurysm by CT scan as described above DISCUSSION AND RECOMMENDATION: I will forward copy of his cath and CT angiogram film for evaluation for possible bypass surgery versus high risk intervention HOSPITAL COURSE: Patient was admitted with cath findings discussed above, arrangement for transfer to a tertiary care center. I discussed the findings with Dr Rice and Guille FINAL DIAGNOSIS: Unstable angina Coronary artery disease Thoracic aortic aneurysm Hyperlipidemia Anesthesia Type: Conscious Sedation Estimated blood loss (mL): 15 ml Contrast Amount: 22 ml Total Radiation Dose: 311 mGy Post-Procedure Diagnosis Post-operative diagnosis: Chest pain Coronary artery disease Thoracic aortic aneurysm Hyperlipidemia JORDAN NAGY MD Jun 11, 2022 12:13
[2022-06-11] MEDS ORDERED: ISOSORBIDE MONONITRATE 30 MG (IMDUR) TAB PO ONE (13:30)
[2022-06-11] MEDS ORDERED: ALPRAZolam 0.25 MG (XANAX) TAB PO PRN (14:00)
[2022-06-11] MEDS ORDERED: meTOprolol 5 MG/5 ML (LOPRESSOR) VIAL IV ONE (14:00)
[2022-06-11] MEDS ORDERED: AtorvaSTATin TABLET 10 MG TABLET PO SCH (21:00)
[2022-06-12] MEDS ORDERED: lisINopril 20 MG (PRINIVIL) TABLET PO SCH (09:00)
== END 2022-06-11 13:57 | disposition short-term general hospital (02) ==
LOC: EDUNIT# 20:51 → ER 20:52 → UNDOADMOB 23:25 → ICU 23:25 → CSD 06-11 10:40 → ICU 06-11 10:40 → UNDODISOB 06-11 13:57
PROVIDERS: ADMIT Internal Medicine Cardiovascular Disease; ATTEND Internal Medicine Cardiovascular Disease
DX: I25.110 Atherosclerotic heart disease of native coronary artery with unstable angina pectoris (principal); I10 Essential (primary) hypertension; E78.00 Pure hypercholesterolemia, unspecified; I71.21 Aneurysm of the ascending aorta, without rupture; I71.40 Abdominal aortic aneurysm, without rupture, unspecified; Z91.199 Patient's noncompliance with other medical treatment and regimen due to unspecified reason; I25.2 Old myocardial infarction; I65.23 Occlusion and stenosis of bilateral carotid arteries; Z95.5 Presence of coronary angioplasty implant and graft; Z87.891 Personal history of nicotine dependence; Z79.82 Long term (current) use of aspirin; F32.A Depression, unspecified; Z82.49 Family history of ischemic heart disease and other diseases of the circulatory system
CPT/HCPCS: 71045; 71275; 74177; 80053; 80061; 82150; 82550; 82553; 83690; 83735; 83874; 83880; 84484 ×2; 85025; 85379; 85610; 85730; 93005 ×2; 93041; 93458; 96372; 96375; 99284; C1760; C1894; G0378; 36415

== ENCOUNTER → 2022-10-26 | Outpatient (CLI) | payer BC ==
--- NOTE | 2022-10-26 11:47 | Diagnostic Imaging Report ---
HISTORY: Right shoulder pain. TECHNIQUE: 3 views of the right shoulder COMPARISON: None FINDINGS: No acute fracture or dislocation is seen in the right shoulder. There are mild degenerative changes in the glenohumeral and acromioclavicular joints. Suture anchors are seen in the humeral head. There is loss of the subacromial space. Alignment appears normal. IMPRESSION: 1. Mild degenerative changes in the right shoulder with no acute osseous abnormality seen. 2. Findings suggestive of chronic rotator cuff injury. Dictated by: Dictated on workstation # [id number]
== END ==
LOC: ORTHO 09:35
PROVIDERS: ATTEND Orthopaedic Surgery
DX: M19.011 Primary osteoarthritis, right shoulder (principal)
CPT/HCPCS: 73030; G0463; 99203

== ENCOUNTER → 2022-10-30 | Outpatient (CLI) | payer BC, OTHER ==
[~2022-10-30] VITALS: Ht 187 cm; Wt 85.0 kg
[~2022-10-30] MED LIST changes: +CATHETER FLUSH 10 ML SYR IVP PRN
[2022-10-30 08:56] VITALS: BP 124/86
--- NOTE | 2022-10-30 11:18 | Cardiology Stress Test Report ---
Stress Test Report Date of Procedure/Referring: Date of Procedure: Oct 30, 2022 PCP Jordan Fermin MD Admitting Physician Admitting Physician: Attending Physician: Jordan Fermin MD Indications: HTN Baseline Heart Rate: 57 Baseline Blood Pressure: Blood Pressure Systolic: 124 Blood Pressure Diastolic: 86 Vital Signs Date Time Temp Pulse Resp B/P (MAP) Pulse Ox O2 Delivery O2 Flow Rate FiO2 10/30/22 08:56 57 124/86 (99) Baseline Vital Signs Vital Signs Date Time Temp Pulse Resp B/P (MAP) Pulse Ox O2 Delivery O2 Flow Rate FiO2 10/30/22 08:56 57 124/86 (99) Baseline EKG: Baseline EKG: NSR Summary: After explaining the procedure and details to the patient, he signed the consent and was brought to the stress nuclear laboratory. Patient exercised on standard Oscar protocol, EKG, heart rate and blood pressure were monitored continuously, resting and stress doses of radio tracer were injected, imaging was acquired and reviewed in the short axis, horizontal long axis and vertical long axis views Patient was able to exercise for a total of 11 minutes on Oscar protocol, METs 12.1 Maximum heart rate 159 Maximum blood pressure 193/89 Stress EKG, Minimal nondiagnostic changes Recovery EKG, Return to baseline TID: 0.99 SSS: 10 SDS: 0 EF: 57 Conclusion: Excellent exercise tolerance for a total of 11 minutes on standard Oscar p rotocol, 12.1 METS achieving 98% of maximum expected heart rate Appropriate heart rate response to exercise with hypertensive response to exercise return to baseline during recovery Nondiagnostic EKG changes with exercise return to baseline during recovery Fixed defect involving the inferior wall and inferoseptum most probably secondary to diaphragmatic attenuation Normal left ventricular size with normal contractility, ejection fraction 57%, inferior wall is chris normally JORDAN FERMIN MD Oct 30, 2022 11:18
== END ==
LOC: CARD 07:45
PROVIDERS: ATTEND Internal Medicine Cardiovascular Disease
DX: I10 Essential (primary) hypertension (principal); I25.10 Atherosclerotic heart disease of native coronary artery without angina pectoris
CPT/HCPCS: 78452; 93017; A9502

== ENCOUNTER → 2023-05-25 | Outpatient (CLI) | payer BC, OTHER ==
[~2023-05-25] MED LIST changes: -CATHETER FLUSH 10 ML SYR IVP PRN; +HOLD METFORMIN - RECEIVED CONTRAST 20 ML VIAL IV SCH; +IOHEXOL 350 MG/ML 100 ML (OMNIPAQUE 350) VIAL IV ONE; +NS 100 ML (IVPB) BAG IV ONE
[2023-05-25 09:28] LABS: CREATININE SERUM 0.93 MG/DL (0.60-1.30)
--- NOTE | 2023-05-25 13:17 | Diagnostic Imaging Report ---
PROCEDURE: CT angiography of the abdomen and chest with and without contrast. TECHNIQUE: After intravenous administration of contrast, thin section axial CT angiography of the abdomen and chest were obtained. 3D MIP reformats were provided. Auto Exposure Controls were utilized during the CT exam to meet ALARA standards for radiation dose reduction. INDICATION: Follow-up on thoracic aorta aneurysm. Comparison CT angiogram of the chest on 06/10/2022. FINDINGS: Patency great vessels. Atherosclerosis within the aortic arch. Ascending aortic aneurysm is unchanged measuring up to 4.5 cm. Multifocal atherosclerosis within the thoracic and abdominal aorta with unchanged infrarenal abdominal aortic aneurysm measuring 4 cm. Unchanged mural thrombus within the abdominal aorta. Patent bilateral common iliac arteries. There is scattered paraseptal emphysema. No airway lesion. No suspicious pulmonary nodules. Subsegmental atelectasis in the lung bases. No pulmonary mass or consolidation. No pleural effusion, pleural mass, or pneumothorax. The liver, spleen, pancreas, adrenal glands are normal. The gallbladder is normal. The bowel is nondilated. No free air, loculated fluid collections, or ascites. The kidneys are normal. The appendix is normal. No abdominal pelvic lymphadenopathy. SMA, celiac, of bilateral renal arteries, and MARVEL are patent and normal in caliber. IMPRESSION: Unchanged size of ascending aortic aneurysm measuring 4.5 cm. Unchanged infrarenal abdominal aortic aneurysm measuring 4 cm. No acute findings in the abdomen or pelvis. Dictated by: Dictated on workstation # [id number]
== END ==
LOC: RAD 08:55
PROVIDERS: ATTEND Internal Medicine Cardiovascular Disease
DX: I71.20 Thoracic aortic aneurysm, without rupture, unspecified (principal)
CPT/HCPCS: 36415; 71275; 74175; 82565; 84520